=== PATIENT | female | born 1955 | race Caucasian/White ===

== ENCOUNTER 2021-03-23 16:23 | Emergency (ER) | payer SELFPAY ==
[2021-03-23 17:21] LABS: Absolute Lymphocytes (CBC) 2.2 K/uL (0.7-4.9); Basophils % 0.7 % (0-1.3); Hematocrit 46.7 % (36.0-45.0); Lymphocytes % 43.3 % (15.3-44.8); MPV 7.6 fL (7.6-11.3); RBC Red Blood Cell Count 4.32 M/uL (3.86-4.86)
[2021-03-23 17:39] LABS: ALT/SGPT 14 U/L (12-78); AST/SGOT 26 U/L (15-37); Albumin 2.6 g/dL (3.4-5.0); Alkaline Phosphatase 122 U/L (45-117); BUN Blood Urea Nitrogen 7 mg/dL (7-18); Bicarbonate 30 mmol/L (21-32); Bilirubin Direct 0.7 mg/dL (0-0.2); Bilirubin Total 1.4 mg/dL (0.2-1.0); Glucose Level 105 mg/dL (74-106); Lipase 35 U/L (73-393); Potassium 3.3 mmol/L (3.5-5.1); Protein, Total 7.4 g/dL (6.4-8.2); Sodium Level 140 mmol/L (136-145)
[2021-03-23 17:52] LABS: SARS-COV-2 RT PCR POSITIVE (NEGATIVE)
--- NOTE | 2021-03-23 18:49 | RAD REPORT ---
EXAM DESCRIPTION: CT - Chest For Pe Angio - 03/23/2021 6:37 pm CLINICAL HISTORY: shortness of breath COMPARISON: No comparisons TECHNIQUE: Dynamically enhanced 3 mm thick images of the chest were obtained during administration o f approximately 150mL Isovue 370 IV contrast. Coronal and oblique MIP reconstruction images were gene rated and reviewed. Exam utilizes a protocol to evaluate the pulmonary arterial tree. All CT scans are performed using dose optimization technique as appropriate and may include automated exposure control or mA/KV adjustment according to patient size. FINDINGS: No pulmonary emboli are identified. The aorta as imaged shows no acute or suspicious finding. No pericardial thickening or effusion. No dense consolidation or large mass lesion identifiable. In the lateral right lower lobe there is a 13 x 6 mm nodular focus. This has a branching or wide configuration and more centrally there are bron chi that show wall thickening. This is most likely an infectious or inflammatory process probably the dilated, obstructed bronchial structure. There is minimal subpleural stranding and nodularity in the right upper lobe and right middle lobe. No pleural effusion or pleural thickening. No mediastinal or hilar suspicious masses. No chest wall masses or abnormal axillary lymphadenopathy. IMPRESSION: No pulmonary emboli identified. Right lung field findings, as detailed above, are most reflective of an infectious/inflammatory proce ss.Findings are nonspecific and do not have elevated concern for a COVID-19 infection. The 13 x 6 mm nodular component does warrant based on patient age follow-up in 4-6 months to assure r esolution.
--- NOTE | 2021-03-23 18:59 | RAD REPORT ---
EXAM DESCRIPTION: CT - Abdomen Pelvis W Contrast - 03/23/2021 6:37 pm CLINICAL HISTORY: abdominal pain COMPARISON: No comparisons TECHNIQUE: Biphasic, helical CT imaging of the abdomen and pelvis was performed following 100 ml non -ionic IV contrast. No oral contrast administered. All CT scans are performed using dose optimization technique as appropriate and may include automated exposure control or mA/KV adjustment according to patient size. FINDINGS: Lung bases are discussed in the separate CT chest report. Liver size is normal. There is subtle nodularity of the liver capsule and a somewhat mottled enhancem ent pattern. No suspicious parenchymal lesions seen. Left lobe is relatively prominent relative to th e right and cirrhosis or diffuse hepatic parenchymal disease is suspected. No splenomegaly or focal s plenic finding. No pancreatic abnormality. No acute gallbladder finding suspected. Gallstones can be occult. No biliary tree dilatation. Symmetric renal function is seen with no hydronephrosis or suspicious renal mass. No pyelonephritis o r acute parenchymal process. Partially filled urinary bladder shows no suspicious findings. No adrena l abnormalities. Uterus and ovaries show no suspicious findings. No gastric dilatation or gastric wall thickening. Small bowel loops are not dilated. Several small elana wel loops show prominent jones and there may be mild wall edema from a nonspecific enteritis or possi karan electrolyte imbalance due to hepatic parenchymal disease. Colon is decompressed with little elisabeth nt within the lumen. The relatively short segment of the hepatic flexure region of the colon is herni ated through a right periumbilical defect. Hernia diameter is at least 13 cm with an 8 centimeter nec k. There is additional supraumbilical ventral hernia 18 cm in transverse diameter with a 6 centimeter neck. No bowel herniates into the midline supraumbilical hernia. Patient has a moderate amount of ascites with fluid extending into each of the hernias. No free air or pneumatosis. No hernia, mass or bulky lymphadenopathy. No suspicious bony findings. Fluid retention is seen in the subcutaneous fatty tissues. IVC filter is in place. Arterial tree calc ifications are present. IMPRESSION: No bowel obstruction, free air or surgically emergent finding. Cirrhosis or diffuse hepatic parenchymal changes are evident in the liver without focal liver lesion. Upper abdominal varices are present and the patient has moderate ascites. Patient has 2 large hernias both with wide neck is. Midline supraumbilical hernia is 18 cm in diamete r. The right paraumbilical hernia is 13 cm in diameter. The right periumbilical hernia contains a avi rt segment of colon without obstructive component. Prominent small bowel loops may reflect a nonspecific enteritis or may represent bowel edema from ismael ctrolyte imbalance due to deliver disease.
[2021-03-23] MEDS ORDERED: NA CHLORIDE 0.9% 250 ML ONE (19:56)
[2021-03-23] MEDS ORDERED: CASIRIVIMAB/IMDEVIMAB 10 ML VIAL ONE (19:57)
[2021-03-23] MEDS ORDERED: NA CHLORIDE 0.9% 50 ML ONE (19:57)
[2021-03-23 22:03] LABS: Blood Morphology Comment NOTED (NOT SEEN); Macrocytosis 1+; Platelet Estimate ADEQ; White Blood Cell Scan OK (OK)
--- NOTE | 2021-03-23 22:24 | ER ---
Nurse's Notes [facility] Name: Miroslava Means Age: 65 yrs Sex: Female : 1955 Arrival Date: 03/23/2021 Time: 16:27 Bed DX1 Private MD: Diagnosis: Coronavirus infection, unspecified Presentation: 03/23 16:32 Chief complaint: Patient states: cough x 4 days. Has a hernia that is protruding and is sv unable to eat or drink now. Coronavirus screen: Vaccine status: Patient reports being unvaccinated. Client presents with at least one sign or symptom that may indicate coronavirus-19. Standard/surgical mask placed on the client. Ebola Screen: No symptoms or risks identified at this time. Risk Assessment: Do you want to hurt yourself or someone else? Patient reports no desire to harm self or others. Onset of symptoms was February 2021. 16:32 Method Of Arrival: Wheelchair sv 16:32 Acuity: LETHA 3 sv 16:33 Initial Sepsis Screen: Does the patient meet any 2 criteria? RR > 20 per min. HR > 90 sv bpm. Yes Does the patient have a suspected source of infection? No. Patient's initial sepsis screen is negative. Triage Assessment: 16:35 General: Appears in no apparent distress. uncomfortable, Behavior is calm, cooperative, sv appropriate for age. Neuro: Level of Consciousness is awake, alert, obeys commands. Respiratory: Respiratory effort is even, unlabored. 17:16 Respiratory: kg Historical: - Allergies: 16:33 No Known Allergies; sv - Immunization history:: Adult Immunizations up to date. - Social history:: Smoking status: Patient reports the use of cigarette tobacco products, smokes one-half pack cigarettes per day. Screenin:49 Abuse screen: Denies threats or abuse. Denies injuries from another. Nutritional kg screening: No deficits noted. Tuberculosis screening: No symptoms or risk factors identified. Fall Risk None identified. Assessment: 20:13 General: Appears in no apparent distress. Behavior is calm, cooperative. Neuro: Level bb of Consciousness is awake, alert, obeys commands, Oriented to person, place, time, situation. Cardiovascular: Capillary refill < 3 seconds Patient's skin is warm and dry. Respiratory: Respiratory effort is even, unlabored, Respiratory pattern is regular. GI: Abdomen is non-distended. Derm: Skin is dry, Skin temperature is warm. Musculoskeletal: Circulation, motion, and sensation intact. 21:20 Reassessment: No changes from previously documented assessment. Patient is alert, bb oriented x 3, equal unlabored respirations, skin warm/dry/pink. IV site intact, patent, Regen-Cov infusing no adverse effect noted. 22:08 Reassessment: Patient is alert, oriented x 3, equal unlabored respirations, skin bb warm/dry/pink. awaiting completion of monitored time. 22:47 Reassessment: Patient is alert, oriented x 3, equal unlabored respirations, skin bb warm/dry/pink. pt verbalized understanding of and agrees to plan of care discharge instructions given pt ambulated with steady gait to exit Patient states feeling better. Vital Signs: 16:33 BP 137 / 84; Pulse 104; Resp 22; Temp 100.3(O); Pulse Ox 95% ; Weight 102.06 kg; Height sv 5 ft. 6 in. (167.64 cm); 16:49 Temp 98.6(O); kg 20:13 BP 138 / 80; Pulse 88; Resp 20 S; Temp 96.3(O); Pulse Ox 92% ; bb 21:19 BP 144 / 84; Pulse 92; Resp 18 S; Pulse Ox 93% on R/A; bb 22:09 BP 142 / 79; Pulse 89; Resp 18 S; Pulse Ox 92% on R/A; bb 22:48 BP 135 / 80; Pulse 90; Resp 18 S; Temp 99.1(O); Pulse Ox 89% on R/A; bb 16:33 Body Mass Index 36.32 (102.06 kg, 167.64 cm) sv ED Course: 16:27 Patient arrived in ED. rg4 16:32 Arm band placed on. sv 16:33 Triage completed. sv 16:40 May Dawn, NILO is Primary Nurse. kg 16:45 Ted Tate PA is PHCP. jmm 16:45 Michael Webb MD is Attending Physician. jmm 16:49 Patient has correct armband on for positive identification. kg 16:49 No provider procedures requiring assistance completed. kg 17:15 Inserted saline lock: 20 gauge in left antecubital area, using aseptic technique. Blood kg collected. 17:17 Basic Metabolic Panel Sent. kg 17:17 CBC with Diff Sent. kg 17:17 Hepatic Function Sent. kg 17:17 Lipase Sent. kg 17:17 D-Dimer Sent. kg 18:36 CT Chest For PE Angio In Process Unspecified. EDMS 18:37 CT Abd/Pelvis - IV Contrast Only In Process Unspecified. EDMS 20:13 IV is patent, is intact. bb 22:49 IV discontinued, intact, bleeding controlled, No redness/swelling at site. Pressure bb dressing applied. Administered Medications: 18:34 Not Given (Physician Discretion): Tylenol 1000 mg PO once ld1 20:12 Drug: REGEN-COV Dose Pack 120 mg/mL-120 mg/mL (EUA) 1200 mg Route: IV; Rate: 250 ml/hr; bb Site: left antecubital; 21:29 Follow up: IV Status: Completed infusion; IV Intake: 260ml bb Intake: 21:29 IV: 260ml; Total: 260ml. bb Outcome: 22:24 Discharge ordered by MD. roosevelt 22:49 Discharged to home ambulatory. bb 22:49 Condition: stable 22:49 Discharge instructions given to patient, Instructed on discharge instructions, follow up and referral plans. Demonstrated understanding of instructions, follow-up care, medications, Prescriptions given X 2. 22:50 Patient left the ED. bb Signatures: Dispatcher [employer] Annette Patel RN RN sv Mickail, Joel, PA PA Tammy Mclaughlin RN RN bb Garcia, Rubi rg4 May Dawn RN RN kg Latricia Hough RN ld1 Corrections: (The following items were deleted from the chart) 16:35 16:33 Pulse 104bpm; Resp 22bpm; Pulse Ox 95%; Temp 100.3F Oral; 102.06 kg; Height 5 ft. sv 6 in.; BMI: 36.3; sv 16:37 16:33 Pulse 104bpm; Resp 22bpm; Pulse Ox 95%; Temp 100.3F Oral; 102.06 kg; Height 5 ft. sv 6 in.; BMI: 36.3; sv 17:15 17:15 Inserted saline lock: 20 gauge in left antecubital area, using aseptic technique. kg kg 17:58 17:17 Influenza Screen (A \T\ B)+BA.LAB.BRZ drawn and sent. kg EDMS
--- NOTE | 2021-03-23 22:24 | EDPHYS ---
Physician Documentation [facility] Name: Miroslava Means Age: 65 yrs Sex: Female : 1955 Arrival Date: 03/23/2021 Time: 16:27 Bed DX1 Private MD: ED Physician Michael Webb HPI: 03/23 16:41 This 65 yrs old Female presents to ER via Wheelchair with complaints of jmm Cough, Congestion, Vomiting. 16:41 Onset: The symptoms/episode began/occurred gradually, 4 day(s) ago. Is a 65-year-old jmm female that presents to the emergency department with complaints of abdominal pain and vomiting beginning today. Patient states she has had a cough over the past 4 days which is worsened her pre-existing abdominal hernia. Patient denies diarrhea.. Historical: - Allergies: 16:33 No Known Allergies; sv - Immunization history:: Adult Immunizations up to date. - Social history:: Smoking status: Patient reports the use of cigarette tobacco products, smokes one-half pack cigarettes per day. ROS: 16:41 Constitutional: Negative for fever, chills, and weight loss, Cardiovascular: Negative jmm for chest pain, palpitations, and edema. 16:41 Respiratory: Positive for cough. 16:41 Abdomen/GI: Positive for abdominal pain, nausea and vomiting. 16:41 All other systems are negative. Exam: 16:41 Constitutional: This is a well developed, well nourished patient who is awake, alert, jmm and in no acute distress. Head/Face: atraumatic. Eyes: EOMI, no conjunctival erythema appreciated ENT: Moist Mucus Membranes Neck: Trachea midline, Supple Chest/axilla: Normal chest wall appearance and motion. 16:41 Respiratory: Normal respirations, no respiratory distress appreciated 16:41 Back: Normal ROM Skin: General appearance color normal MS/ Extremity: Moves all extremities, no obvious deformities appreciated, no edema noted to the lower extremities Neuro: Awake and alert, normal gait Psych: Behavior is normal, Mood is normal, Patient is cooperative and pleasant 16:41 Cardiovascular: Rate: normal, Rhythm: regular. 16:41 Abdomen/GI: Palpable mass noted to the abdomen, soft, there is tenderness to palpation. Vital Signs: 16:33 BP 137 / 84; Pulse 104; Resp 22; Temp 100.3(O); Pulse Ox 95% ; Weight 102.06 kg; Height sv 5 ft. 6 in. (167.64 cm); 16:49 Temp 98.6(O); kg 20:13 BP 138 / 80; Pulse 88; Resp 20 S; Temp 96.3(O); Pulse Ox 92% ; bb 21:19 BP 144 / 84; Pulse 92; Resp 18 S; Pulse Ox 93% on R/A; bb 22:09 BP 142 / 79; Pulse 89; Resp 18 S; Pulse Ox 92% on R/A; bb 22:48 BP 135 / 80; Pulse 90; Resp 18 S; Temp 99.1(O); Pulse Ox 89% on R/A; bb 16:33 Body Mass Index 36.32 (102.06 kg, 167.64 cm) sv MDM: 16:52 Patient medically screened. [facility] 22:22 Data reviewed: vital signs, nurses notes. Counseling: I had a detailed discussion with omero the patient and/or guardian regarding: the historical points, exam findings, and any diagnostic results supporting the discharge/admit diagnosis, lab results, radiology results, the need for outpatient follow up, to return to the emergency department if symptoms worsen or persist or if there are any questions or concerns that arise at home. 03/23 16:53 Order name: Basic Metabolic Panel; Complete Time: 17:[address] [facility] 03/23 16:53 Order name: CBC with Diff; Complete Time: 22:[address] [facility] 03/23 16:53 Order name: Hepatic Function; Complete Time: 17:[address] [facility] 03/23 16:53 Order name: Lipase; Complete Time: 17:[address] [facility] 03/23 16:53 Order name: IV Saline Lock; Complete Time: 17:[address] [facility] 03/23 16:53 Order name: D-Dimer; Complete Time: 18:[address] [facility] 03/23 17:53 Order name: COVID-19/FLU A+B; Complete Time: 17:55 [facility] 03/23 17:56 Order name: CT Chest For PE Angio; Complete Time: 18:[address] [facility] 03/23 17:56 Order name: CT Abd/Pelvis - IV Contrast Only; Complete Time: 19:[address] [facility] 03/23 22:03 Order name: CBC Smear Scan; Complete Time: 22:08 [facility] 03/23 16:53 Order name: Labs collected and sent; Complete Time: 17:[address] [facility] Administered Medications: 18:34 Not Given (Physician Discretion): Tylenol 1000 mg PO once ld1 20:12 Drug: REGEN-COV Dose Pack 120 mg/mL-120 mg/mL (EUA) 1200 mg Route: IV; Rate: 250 ml/hr; bb Site: left antecubital; 21:29 Follow up: IV Status: Completed infusion; IV Intake: 260ml bb Disposition Summary: 03/23/21 22:24 Discharge Ordered Location: Home [facility] Condition: Stable [facility] Diagnosis - Coronavirus infection, unspecified [facility] Followup: m - With: Private Physician - When: 2 - 3 days - Reason: Recheck today's complaints, Continuance of care, Re-evaluation by your physician Discharge Instructions: - Discharge Summary Sheet [facility] - COVID-[address] [facility] Forms: - Medication Reconciliation Form [facility] - Thank You Letter [facility] - Antibiotic Education [facility] - Prescription Opioid Use [facility] Prescriptions: - albuterol sulfate 90 mcg/actuation Inhalation HFA aerosol inhaler - inhale 2 puff by INHALATION route every 4 hours; 1 Pump; Refills: 0, Product [facility] Selection Permitted - ivermectin 3 mg Oral tablet - take 6 tablet by ORAL route as directed Please take 6 tabs by mouth now, and jmm then take another 6 tabs by mouth in 3 days; 12 tablet; Refills: 0, Product Selection Permitted Signatures: Dispatcher [employer] [facility] Annette Farrar RN RN sv Mickail, Joel, PA PA [facility] Tammy Scott RN RN bb Graham, Kristen, RN RN kg Latricia Hough RN ld1 Corrections: (The following items were deleted from the chart) 16:59 16:37 CORONAVIRUS+MR.LAB.BRZ ordered. EDLA EDMS 17:58 16:37 Influenza Screen (A \T\ B)+BA.LAB.BRZ ordered. EDLA EDMS
[2021-03-23 23:04] VITALS: BP 135/80; TEMP 99.1; O2SAT 89
== END 2021-03-23 22:50 | disposition home or self-care (01) ==
LOC: ER 16:23
DX: U07.1 COVID-19 (principal); F17.210 Nicotine dependence, cigarettes, uncomplicated
CPT/HCPCS: 0240U; 36415; 71275; 74177; 80048; 80076; 83690; 85025; 85379; J7050; Q9967

== ENCOUNTER 2021-10-17 16:18 | Inpatient (IN) | payer OTHER ==
--- OUTSIDE RECORDS SUMMARY | 2021-10-17 16:20 | XMS REPORT | Continuity of Care Document ---
:1955 Author Organization [facility] t Address [address] [place] [address] Care Team Providers Name Role Phone Jarod Miller MD Primary Care Physician Cari Ramos LMSW Attending Clinician Payers Payer Name Policy Type Policy Number Effective Date Expiration Date S ource Problems Condition Condition Condition Status Onset Resolution Last Treating Co mments Source Name Details Category Date Date Treatment Clinician Date Abdominal Abdominal Disease Active Uni vers ascites ascites 3-03 ity of 00:00: [place] 00 [facility] Branch Decompensa Decompensa Disease Active 2020-07 U nivers adriana adriana 0-13 ity of hepatic hepatic 00:00: [place] cirrhosis cirrhosis 00 [facility] Allergies, Adverse Reactions, Alerts This patient has no known allergies or adverse reactions. Social History Social Habit Start Date Stop Date Quantity Comments Source Exposure to Not sure [facility] SARS-CoV-2 (event) [facility] History of tobacco Cigarette Smoker University of use [facility] History [facility] o f Alcohol Frequency [facility] Branch History [facility] University o f Alcohol Std Drinks [facility] History [facility] University o f Alcohol Binge [facility] Alcohol intake 2021-09-26 2021-09-26 Ex-drinker University of 00:00:00 00:00:00 (finding) [facility] Cigarettes smoked 2021-05-04 2021-05-04 Univers ity of current (pack per 00:00:00 00:00:[address] [facility] ) - Reported Branch Cigarette 2021-05-04 2021-05-04 University of pack-years 00:00:00 00:00:00 [facility] Tobacco use and 2021-05-04 2021-05-04 Never used Universit y of exposure 00:00:00 00:00:00 [facility] Alcohol Comment 2021-05-04 2021-05-04 stopped 1980 Univers ity of 00:00:00 00:00:00 [facility] Education 2021-05-04 2021-05-04 13 University of 00:00:00 00:00:00 [facility] Tobacco Comment 2021-05-04 2021-05-04 pack a day Universit y of 00:00:00 00:00:00 smoker quit 10 [place] [facility] days ago Branch Sex Ass[birth year] Universit y of 00:00:00 00:00:00 [facility] Smoking Status Start Date Stop Date Source Former smoker 2021-05-04 00:00:00 2021-05-04 00:00:00 Universi ty of [facility] Medications Ordered Filled Start Stop Current Ordering Indication Dosage Frequency Signature Comments Components Source Medication Medication Date Date Medication? Clinician (SIG) Name Name Lactobac Yes Take by Unive rs no.41/Bifid 3-07 mouth as ity of obact no.7 09:23[place] (PROBIOTIC- 23 Medical 10 ORAL) Branch polyethylen Yes 1{packe Take 1 U nivers e glycol 3-07 t} Packet by ity of 3350 09:23: mouth as [place] (MIRALAX) 23 needed for [facility] stephanie 17 gram Constipati Branch powder on. vitamin Yes [id number] 1000ug Take 1 U nivers B-12 1,000 3-07 tablet by ity of mcg tablet 00:00: mouth [place] 00 daily. Medical Branch spironolact Yes [id number] 150mg Take 1.5 Univers one 100 mg 3-04 tablets by ity of tablet 00:00: mouth [place] 00 daily. Medical Branch furosemide 2021- No [id number] 60mg Take 3 Univers 20 mg 3-04 03-08 tablets by ity of tablet 00:00: 00:00 mouth [place] 00 :00 daily. Medical Branch pantoprazol 2020-07 Yes [id number] 40mg Take 1 Univers e 40 mg EC 0-16 tablet by ity of tablet 00:00: mouth [place] 00 daily. Medical Branch lactulose 2020-07 Yes [id number] 30mL Take 30 mL Univers 10 gram/15 0-15 by mouth 2 ity of mL solution 00:00: (two) [place] 00 times Medical daily. Branch Procedures This patient has no known procedures. Encounters Start End Encounter Admission Attending Care Care Encounter Source Date/Time Date/Time Type Type Clinicians Facility Department ID 2021-09-26 2021-09-26 Patient KEVIN Ramos [id number] Univers 00:00:00 00:00:00 Outreach [facility] [id number] i ty of KADE [id number] Rafa as LARRY?BLEA [id number] [place] salvador HARE 044 Branch MEDICAL OFFICE BUILDING Results This patient has no known results.
[2021-10-17] MEDS ORDERED: CEFTRIAXONE 1000 MG/VIAL ONE (16:25)
[2021-10-17] MEDS ORDERED: NA CHLORIDE 0.9% 2,000 ML ONE ×2 (16:25→16:29)
[2021-10-17] MEDS ORDERED: ETOMIDATE 20 MG/10 ML VIAL IV ONE (16:28)
[2021-10-17] MEDS ORDERED: SUCCINYLCHOLINE 20 MG/ML (10 ML) IV ONE (16:29)
[2021-10-17 17:05] LABS: Albumin 2.2 g/dL (3.4-5.0); Bilirubin Total 2.3 mg/dL (0.2-1.0); Magnesium 1.7 mg/dL (1.8-2.4); Potassium 4.8 mmol/L (3.5-5.1); Protein, Total 6.7 g/dL (6.4-8.2)
[2021-10-17 17:22] LABS: Troponin High Sensitivity 81.8 pg/mL (<58.9)
[2021-10-17 17:27] LABS: Urine Bacteria <20 /HPF (<20); Urine RBC <5 /HPF (NONE SEEN)
[2021-10-17] MEDS ORDERED: LACTULOSE 20 GM/30 ML UCUP ONE (17:36)
--- NOTE | 2021-10-17 17:36 | RAD REPORT ---
EXAM DESCRIPTION: CT - Head Brain Wo Cont - 10/17/2021 5:25 pm CLINICAL HISTORY: DECLINING STATE COMPARISON: No comparisons TECHNIQUE: Axial 5 mm thick images of the head were obtained without IV contrast. All CT scans are performed using dose optimization technique as appropriate and may include automated exposure control or mA/KV adjustment according to patient size. FINDINGS: No intracranial hemorrhage, mass, edema or shift of mid-line structures. No acute infarcti on changes seen. No abnormal extra-axial fluid collections. Ventricles are normal. No significant atr ophy or chronic ischemic change. Asymmetry is created by head tilt. Mastoid air cells and visualized portions of the paranasal sinuses are clear. No acute bony findings. IMPRESSION: Negative non-contrast CT head examination.
--- NOTE | 2021-10-17 17:41 | RAD REPORT ---
EXAM DESCRIPTION: RAD - Chest Single View - 10/17/2021 4:59 pm CLINICAL HISTORY: DYSPNEA COMPARISON: None TECHNIQUE: AP portable chest image was obtained 10/17/2021 4:59 pm . FINDINGS: ET tube has been placed. Tip is mid aortic arch level 4 cm above the ernst. No focal mass or consolidation. No diffuse pulmonary edema. Interstitial markings are prominent. Left hemidiaphragm elevation noted. No reuben mass seen. Heart and vasculature are normal. No measurable pleural effusion and no pneumothorax. No acute bony abnormality seen. No acute aortic findings suspected. IMPRESSION: ET tube placement in good position 4 cm above the ernst.
[2021-10-17 18:02] LABS: Protime INR 1.43
--- NOTE | 2021-10-17 18:09 | ER ---
Nurse's Notes [facility] Name: Miroslava Means Age: 66 yrs Sex: Female : 1955 Arrival Date: 10/17/2021 Time: 16:20 Bed 3 Private MD: Diagnosis: Hepatic Encephalopathy;Acute kidney failure, unspecified;Hypotension, unspecified;Altered mental status, unspecified Presentation: 10/17 16:20 Chief complaint: EMS states: Unknown downtime, unknown last known well. Found on L side ll1 laying on her sofa. Neighbors called for welfare check. BP 88/63, resp 25, 98.3 temp, 90%RA, HR 111. R eye reactive only, BM en route. History of stomach CA per neighbors. Coronavirus screen: Client denies travel out of the [place] in the last 14 days. At this time, the client does not indicate any symptoms associated with coronavirus-19. Ebola Screen: Patient denies travel to an Ebola-affected area in the 21 days before illness onset. Initial Sepsis Screen: Does the patient meet any 2 criteria? RR > 20 per min. HR > 90 bpm. Yes Does the patient have a suspected source of infection? No. Patient's initial sepsis screen is negative. Risk Assessment: Do you want to hurt yourself or someone else? Patient reports no desire to harm self or others. Onset of symptoms is unknown. 16:20 Method Of Arrival: EMS: [facility] 1 16:20 Acuity: LETHA 2 ll1 Triage Assessment: 16:24 General: General: Appears ill, Behavior is unresponsive. ll1 16:49 Pain: Denies pain. Neuro: Reports a syncopal episode weakness. Cardiovascular: No ll1 deficits noted. Respiratory: Reports shortness of breath. GI: Abdomen is round distended, Bowel sounds present X 4 quads. Historical: - Allergies: 16:23 Unable to obtain; ll1 - PMHx: 16:23 stomach CA; ll1 - PSHx: 16:23 Unable to Obtain; ll1 - Immunization history:: Adult Immunizations unknown. - Social history:: Smoking status: Patient reports the use of cigarette tobacco products, unknown amount. Screenin:50 Abuse screen: Denies threats or abuse. Nutritional screening: No deficits noted. ll1 Tuberculosis screening: No symptoms or risk factors identified. 19:18 Fall Risk Fall in past 12 months (25 points). Secondary diagnosis (15 points) IV access tw5 (20 points). Assessment: 16:20 General: Appears unkempt, malnourished, Behavior is unresponsive. Neuro: Level of jh6 Consciousness is unresponsive, Oriented to none Reaction to noxious stimuli is withdrawal. Cardiovascular: No deficits noted. Respiratory: Airway is compromised compromised airway due to pt being obtunded Trachea midline Breath sounds are clear bilaterally. 16:20 Pain: Noted to be unresponsive except for pain. jh6 17:00 Reassessment: No changes from previously documented assessment. jh6 18:50 Reassessment: No changes from previously documented assessment. Patient and/or family jh6 updated on plan of care and expected duration. Pain level reassessed. Patient is alert, oriented x 3, equal unlabored respirations, skin warm/dry/pink. pt currently not on any sedation and has only slight response to painful stimuli. 19:18 General: Appears ill, unkempt, Behavior is unresponsive. Called Lab for a recollect. tw5 Neuro: Level of Consciousness is unresponsive, Oriented to none Respiratory: Airway via oral intubation Trachea midline Respiratory effort is even, unlabored, Respiratory pattern is regular, Ventilator assessment: ET Tube: 7.5 24 at lip Ventilator Mode: Assist Control (AC) Tidal Volume: 480 Respiratory Rate: 14 FiO2: 30% PEEP: 5 HOB > 30 degrees. Suction provided. Color of output clear. : to gravity drainage. Vital Signs: 16:20 BP 89 / 61; Pulse 101; Resp 24; Temp 97.3; Pulse Ox 88% on R/A; Weight 70.31 kg; Pain ll1 0/10; 16:51 BP 108 / 68; Pulse 91; Resp 14; Pulse Ox 99% on ETT vent; Pain 0/10; ll1 17:00 BP 90 / 70; Pulse 95; Resp 16; Temp 97.8(C); Pulse Ox 100% on 10% FiO2 ETT vent; jh6 17:30 BP 111 / 69; Pulse 100; Resp 16; Pulse Ox 100% on ETT vent; jh6 17:45 BP 118 / 58; Pulse 100; Resp 20; Pulse Ox 99% on ETT vent; jh6 18:00 BP 115 / 75; Pulse 95; Resp 16; Pulse Ox 98% on ETT vent; jh6 18:16 BP 106 / 65; Pulse 96; Resp 16; Pulse Ox 100% ; jh6 18:40 BP 105 / 69; Pulse 97; Resp 14; Pulse Ox 99% ; jh6 19:03 BP 108 / 77; Pulse 96; Resp 22; Pulse Ox 97% on 30% FiO2 ETT vent; tw5 19:18 BP 110 / 75; Pulse 96; Resp 19; Temp 98.1(C); Pulse Ox 97% on 30% FiO2 ETT vent; tw5 21:18 BP 109 / 75; Pulse 101; Resp 20; Pulse Ox 95% on ETT vent; tw5 ED Course: 16:15 Inserted saline lock: 20 gauge in left antecubital area, using aseptic technique. 6 16:15 Assisted provider with intubation using 7.5 mm ETT via oral route. ET tube secured at 6 23cm at the lips. Set up intubation tray. Intubated by Damion ISAAC Placement verified by CO2 detector w/ + color change, auscultating bilateral breath sounds, End-tidal CO2 montioring CXR, Patient tolerated well. 16:20 Patient arrived in ED. 1 16:20 Inserted saline lock: 20 gauge in right antecubital area, using aseptic technique. 6 Blood collected. 16:23 Triage completed. ll1 16:24 Arm band placed on Patient placed in an exam room, on a stretcher. ll1 16:26 Damion Castro PA is PHCP. jr8 16:26 Pa Guajardo MD is Attending Physician. jr8 16:30 Initial lab(s) drawn, by wy, sent to lab. Second set of blood cultures drawn by , 6 Urine collected: Vora catheter specimen, onofre colored, tea colored, Amount Returned: 60mL EKG done, by ED staff, reviewed by Damion ISAAC. 16:38 Patient has correct armband on for positive identification. Placed in gown. Bed in low mh5 position. Call light in reach. Side rails up X2. Warm blanket given. equipment monitor phototypesetting on. Pulse ox on. NIBP on. 16:38 COVID swab sent to lab. 5 16:40 Inserted. 6 16:52 Janay Hankins RN is Primary Nurse. 6 16:53 Inserted. jh6 16:57 Vora cath inserted, using sterile technique, 18 Fr., by wy, balloon inflated, to zm gravity drainage, clamped. urine specimen collected. returned onofre urine. Patient tolerated well. 17:00 Chest Single View XRAY In Process Unspecified. EDMS 17:00 NGT: inserted 16 Fr. via left nare. confirmation with auscultation with air and jh6 aspiration of gastric contents. pt tolerated well no trauma during procedure. 17:27 CT Head Brain wo Cont In Process Unspecified. EDMS 17:[address] jh6 17:40 Patient moved back from CT. jh6 18:08 Jamarcus Webb MD is Hospitalizing Provider. jr8 18:14 Chest Abdomen Pelvis Wo Con CT In Process Unspecified. EDMS 18:15 Patient moved back from CT. jh6 19:09 Primary Nurse role handed off by Janay Hankins, NILO tw5 19:09 Sherine Dean is Primary Nurse. tw5 19:18 equipment monitor phototypesetting on. Pulse ox on. NIBP on. Noise minimized. Moved to private room. Warm tw5 blanket given. 21:15 Patient admitted, IV remains in place. tw5 Administered Medications: 16:35 Drug: NS 0.9% (30 ml/kg) 30 ml/kg Route: IV; Rate: bolus; Site: left antecubital; 6 19:11 Follow up: IV Status: Completed infusion jh6 19:11 Follow up: IV Status: Completed infusion 6 16:38 Drug: Etomidate 10 mg Route: IVP; Site: left antecubital; 6 19:11 Follow up: Response: No adverse reaction 6 16:38 Drug: Succinylcholine 70 mg Route: IVP; Site: left antecubital; 6 19:11 Follow up: Response: No adverse reaction jh6 17:03 Drug: Rocephin (cefTRIAXone) 2 grams Route: IV; Rate: calculated rate; [facility]: [facility] antecubital; 17:47 Follow up: Response: No adverse reaction jh6 18:17 Follow up: Response: No adverse reaction 6 19:11 Follow up: IV Status: Completed infusion jh6 17:34 Drug: Lactulose 30 grams Volume: 45 ml; Route: PO; 6 19:10 Follow up: Response: No adverse reaction 6 18:18 Drug: Magnesium Sulfate 2 grams Route: IVPB; Infused Over: 2 hrs; Site: left [facility] antecubital; 19:15 Follow up: Response: No adverse reaction; IV Status: Completed infusion; IV Intake: [id number] Intake: 19:15 IV: 50ml; Total: 50ml. tw5 Outcome: 18:09 Decision to Hospitalize by Provider. jr8 19:48 Admitted to ICU Report called to Attempted to call report to Rebekah. It was stated she tw5 is trying to get another patient moved out of ICU and won't be able to receive the patient until the other patient has been downgraded. 20:21 Admitted to ICU Report called to Attempted to call report was told that nurse is still tw5 unable to take report at this time. 21:14 Admitted to ICU Report called to Called report to Rebekah. Paging RT for transfer at this tw5 time 21:14 Condition: stable 21:33 Patient left the ED. kd3 Signatures: Dispatcher [employer] EDMS Damion Castro PA PA jr8 Bernie Abbott 5 Michael Santiago RN RN ll1 Sherine Dean 5 Staci Pires RN RN kd3 Janay Hankins RN RN 6 Lynette Abbott Corrections: (The following items were deleted from the chart) 16:49 16:20 BP 89 / 61; Pulse 101bpm; Resp 24bpm; Pulse Ox 88% RA; Temp 97.3F; Pain 0/10; ll1 ll1 16:50 16:24 General: ll1 ll1 16:54 16:52 Assisted provider with intubation using 7.5 mm ETT via oral route. ET tube jh6 secured at 23cm at the lips. Set up intubation tray. Intubated by Damion ISAAC Placement verified by CO2 detector w/ + color change, auscultating bilateral breath sounds, End-tidal CO2 montioring CXR, Patient tolerated well. jh6 16:56 16:40 Assisted provider with intubation using 7.5 mm ETT via oral route. ET tube jh6 secured at 23cm at the lips. Set up intubation tray. Intubated by Damion ISAAC Placement verified by CO2 detector w/ + color change, auscultating bilateral breath sounds, End-tidal CO2 montioring CXR, Patient tolerated well. 6 17:02 16:56 General: Appears unkempt, malnourished, Behavior is unresponsive. [place] [id number] 17:02 16:56 Pain: Noted to be unresponsive except for pain [place] [id number] 17:02 16:56 Neuro: Level of Consciousness is unresponsive, Oriented to none Reaction to [facility] noxious stimuli is withdrawal [facility] 17:02 16:56 Cardiovascular: No deficits noted. [place] [id number] 17:02 16:56 Respiratory: Airway is compromised compromised airway due to pt being obtunded [facility] Trachea midline Breath sounds are clear bilaterally. 6 17:54 17:00 NGT: inserted 16 Fr. via left nare. [place] [id number]
--- NOTE | 2021-10-17 18:10 | EDPHYS ---
Physician Documentation [facility] Name: Miroslava Means Age: 66 yrs Sex: Female : 1955 Arrival Date: 10/17/2021 Time: 16:20 Bed 3 Private MD: ED Physician Pa Guajardo HPI: 10/17 17:38 This 66 yrs old Female presents to ER via EMS with complaints of Unresponsive. jr8 17:38 Onset: The symptoms/episode began/occurred at an unknown time. Duration: The episode is jr8 continuous. Severity of symptoms: At their worst the symptoms were moderate in the emergency department the symptoms are unchanged. Patient's baseline: Neuro: alert and fully oriented. It is unknown whether or not the patient has had similar symptoms in the past. It is unknown whether or not the patient has recently seen a physician. This is a 66-year-old female patient that presented to the emergency room via EMS after being called out for a welfare check by police department. Neighbors had not heard from her and so they had called police. Police entered and found patient unresponsive on the couch. EMS got there found her on her left side laying on the couch. Nonresponsive to any stimulus. Initially hypotensive and hypoxic. Patient upon arrival to emergency room on oxygen oxygenating at 100% on a nonrebreather 10 L/min. Still unresponsive. Only known history is a possible stomach cancer.. Historical: - Allergies: 16:23 Unable to obtain; ll1 - PMHx: 16:23 stomach CA; ll1 - PSHx: 16:23 Unable to Obtain; ll1 - Immunization history:: Adult Immunizations unknown. - Social history:: Smoking status: Patient reports the use of cigarette tobacco products, unknown amount. ROS: 17:38 Unable to obtain ROS due to altered mental status. jr8 Exam: 17:38 Radiologist reports: No acute findings jr8 17:40 Eyes: Pupils equal round and reactive to light, extra-ocular motions intact. Lids and jr8 lashes normal. Conjunctiva and sclera are non-icteric and not injected. Cornea within normal limits. Periorbital areas with no swelling, redness, or edema. Neck: Trachea midline, no thyromegaly or masses palpated, and no cervical lymphadenopathy. Supple, full range of motion Cardiovascular: Regular rate and rhythm with a normal S1 and S2. No gallops, murmurs, or rubs. Normal PMI, no JVD. No pulse deficits. Respiratory: Lungs have equal breath sounds bilaterally, clear to auscultation and percussion. No rales, rhonchi or wheezes noted. No increased work of breathing, no retractions or nasal flaring. RR 16 bpm Abdomen/GI: Soft with normal bowel sounds. No distension. Large hernia present lower abdomen Skin: Warm, dry with normal turgor. Normal color with no rashes, no lesions, and no evidence of cellulitis. MS/ Extremity: Pulses equal, no cyanosis. Neurovascular intact. 17:40 Neuro: Orientation: Not oriented to person, place, time, situation, Mentation: unable to follow commands, Memory: unable to test, Cerebellar function: unable to test, Motor: unable to test, seizure activity, is not displayed by the patient, Abnormal movements: there are no abnormal movements. Vital Signs: 16:20 BP 89 / 61; Pulse 101; Resp 24; Temp 97.3; Pulse Ox 88% on R/A; Weight 70.31 kg; Pain ll1 0/10; 16:51 BP 108 / 68; Pulse 91; Resp 14; Pulse Ox 99% on ETT vent; Pain 0/10; ll1 17:00 BP 90 / 70; Pulse 95; Resp 16; Temp 97.8(C); Pulse Ox 100% on 10% FiO2 ETT vent; jh6 17:30 BP 111 / 69; Pulse 100; Resp 16; Pulse Ox 100% on ETT vent; jh6 17:45 BP 118 / 58; Pulse 100; Resp 20; Pulse Ox 99% on ETT vent; jh6 18:00 BP 115 / 75; Pulse 95; Resp 16; Pulse Ox 98% on ETT vent; jh6 18:16 BP 106 / 65; Pulse 96; Resp 16; Pulse Ox 100% ; jh6 18:40 BP 105 / 69; Pulse 97; Resp 14; Pulse Ox 99% ; jh6 19:03 BP 108 / 77; Pulse 96; Resp 22; Pulse Ox 97% on 30% FiO2 ETT vent; tw5 19:18 BP 110 / 75; Pulse 96; Resp 19; Temp 98.1(C); Pulse Ox 97% on 30% FiO2 ETT vent; tw5 21:18 BP 109 / 75; Pulse 101; Resp 20; Pulse Ox 95% on ETT vent; tw5 Procedures: 16:46 Intubation: Ventilated with 100% NRB prior to procedure. O2 saturation prior to 8 procedure was 98 %. Intubated orally using # 4 Jamal blade with 7.5 mm ETT. was successful on first attempt. Ventilated with Ambu bag. ventilator. Tube secured with ETT ha at center of mouth measured 22 cm at lip. Placement verified by CXR, CO2 detector with (+) color change, auscultating bilateral breath sounds, O2 saturation after procedure was 100 %. Patient tolerated well. MDM: 16:26 Patient medically screened. 10/17 16:28 Order name: Blood Culture Adult (2) 10/17 16:28 Order name: CBC with Diff; Complete Time: 19:59 10/17 16:28 Order name: CMP; Complete Time: 17:26 10/17 16:28 Order name: Lactate; Complete Time: 17:26 10/17 16:28 Order name: Protime (+inr); Complete Time: 18:07 10/17 16:28 Order name: Ptt, Activated; Complete Time: 18:07 10/17 16:28 Order name: Urine Culture 10/17 16:28 Order name: Urine Microscopic Only; Complete Time: 17:30 10/17 16:28 Order name: ABG 10/17 16:28 Order name: Magnesium; Complete Time: 17:26 10/17 16:28 Order name: BNP; Complete Time: 17:26 10/17 16:28 Order name: AMMONIA; Complete Time: 16:58 10/17 16:28 Order name: UDS; Complete Time: 18:31 10/17 16:28 Order name: Troponin HS; Complete Time: 17:26 10/17 16:28 Order name: Chest Single View XRAY; Complete Time: 17:43 10/17 16:28 Order name: Accucheck; Complete Time: 16:48 10/17 16:28 Order name: Cardiac monitoring; Complete Time: 16:48 10/17 16:28 Order name: EKG - Nurse/Tech; Complete Time: 16:48 10/17 16:28 Order name: CT Head Brain wo Cont; Complete Time: 17:40 [facility] 10/17 16:38 Order name: COVID-19 SARS RT PCR (Document "Date of Onset" if Symptomatic); Complete bd Time: 17:27 10/17 16:54 Order name: glucometer results - FOR PT WITH NO ID; Complete Time: 17:51 aa5 10/17 17:50 Order name: Chest Abdomen Pelvis Wo Con CT; Complete Time: 18:41 la1 10/17 20:22 Order name: Lactate Sepsis 2 HR Follow-up; Complete Time: 20:54 EDMS 10/17 16:28 Order name: IV Saline Lock - Large Bore; Complete Time: 16:48 [facility] 10/17 16:28 Order name: Labs collected and sent; Complete Time: 16:48 [facility] 10/17 16:28 Order name: O2 Per Protocol; Complete Time: 16:48 [facility] 10/17 16:28 Order name: O2 Sat Monitoring; Complete Time: 16:48 [facility] 10/17 16:46 Order name: Labs - recollect needed: recollect blue, and green top; Complete Time: 18:17bd 10/17 17:01 Order name: NG Tube; Complete Time: 17:34 [facility] 10/17 17:55 Order name: Labs - recollect needed: recollect lavender top; Complete Time: 18:14 bd 10/17 19:02 Order name: Labs - recollect needed: recollect cbc; Complete Time: 19:46 bd Administered Medications: 16:35 Drug: NS 0.9% (30 ml/kg) 30 ml/kg Route: IV; Rate: bolus; Site: left antecubital; [facility] 19:11 Follow up: IV Status: Completed infusion [facility] 19:11 Follow up: IV Status: Completed infusion [facility] 16:38 Drug: Etomidate 10 mg Route: IVP; Site: left antecubital; [facility] 19:11 Follow up: Response: No adverse reaction [facility] 16:38 Drug: Succinylcholine 70 mg Route: IVP; Site: left antecubital; [facility] 19:11 Follow up: Response: No adverse reaction [facility] 17:03 Drug: Rocephin (cefTRIAXone) 2 grams Route: IV; Rate: calculated rate; Site: right [facility] antecubital; 17:47 Follow up: Response: No adverse reaction [facility] 18:17 Follow up: Response: No adverse reaction [facility] 19:11 Follow up: IV Status: Completed infusion [facility] 17:34 Drug: Lactulose 30 grams Volume: 45 ml; Route: PO; [facility] 19:10 Follow up: Response: No adverse reaction [facility] 18:18 Drug: Magnesium Sulfate 2 grams Route: IVPB; Infused Over: 2 hrs; Site: left [facility] antecubital; 19:15 Follow up: Response: No adverse reaction; IV Status: Completed infusion; IV Intake: [id number] Disposition Summary: 10/17/21 18:09 Hospitalization Ordered Hospitalization Status: Inpatient Admission [facility] Provider: Jamarcus Webb Location: Intensive Care Unit [facility] Condition: Fair jr8 Problem: new jr8 Symptoms: have improved jr8 Bed/Room Type: Standard [facility] Room Assignment: 3-(10/17/21 19:32) Diagnosis - Hepatic Encephalopathy jr8 - Acute kidney failure, unspecified jr8 - Hypotension, unspecified jr8 - Altered mental status, unspecified jr8 Forms: - Medication Reconciliation Form jr8 - SBAR form jr8 Addendum: 10/20/2021 06:35 Co-signature as Attending Physician, Pa Guajardo MD I agree with the assessment and c ramirez plan of care. Signatures: Dispatcher [employer] EDPR Marissa Coe Martha, RN Pa Ortez MD MD cha Roszak, Josh, PA PA jr8 Cy Mina, BUGGY OPERATOR-C BUGGY OPERATOR-Cla1 Michael Santiago RN RN ll1 Janay Hankins RN RN 6 Sherine Dean tw5 Corrections: (The following items were deleted from the chart) 10/17 16:58 16:51 GLUCOSE+[id number].LAB.BRZ ordered. EDPR EDPR 19:32 18:09 Suhas corcoran
[2021-10-17] MEDS ORDERED: Magnesium Sulfate 2gm IVPB 2 G/50 ML BAG IV ONE (18:19)
[2021-10-17 18:20] LABS: Barbiturates NEGATIVE (NEGATIVE); Benzodiazepines NEGATIVE (NEGATIVE); Cocaine NEGATIVE (NEGATIVE); METHAMPHETAM NEGATIVE (NEGATIVE); Methadone NEGATIVE (NEGATIVE); Opiates NEGATIVE (NEGATIVE); Phencyclidine NEGATIVE (NEGATIVE); THC Cannibis POSITIVE (NEGATIVE)
--- NOTE | 2021-10-17 18:40 | RAD REPORT ---
EXAM DESCRIPTION: CT - Chest Abd Pelvis Wo Con - 10/17/2021 6:12 pm CLINICAL HISTORY: Unresponsive, hypotensive, elev. lactate/ammonia COMPARISON: Chest For Pe Angio dated 03/23/2021; Chest Single View dated 10/17/2021 TECHNIQUE: Axial 5 millimeter thick images of the chest, abdomen and pelvis were obtained without IV contrast. Oral contrast was administered. All CT scans are performed using dose optimization technique as appropriate and may include automated exposure control or mA/KV adjustment according to patient size. FINDINGS: The lungs are clear of mass and infiltrate. No pneumothorax or pleural effusion. No ches t wall mass or abnormal axillary lymphadenopathy seen. Mediastinal and hilar regions show no mass or lymphadenopathy. No significant cardiac finding. Endotracheal tube is in place. Tip terminates at t he mid aortic arch level approximately 4 cm above the ernst. NG tube has been placed. Tip is in the gastric body. The liver, spleen and pancreas show no focal findings for non contrast imaging. Liver capsule has a s lightly nodular contour. Cirrhosis or diffuse hepatic parenchymal disease cannot be excluded. Several gallstones are seen. No biliary tree dilatation. Acute cholecystitis is unlikely. There is respirato ry motion that precludes accurate assessment of the gallbladder jones. No hydronephrosis or suspicious renal mass. Isodense masses and pyelonephritis cannot be excluded on non contrast imaging. No adrenal abnormalities. Urinary bladder is fully contracted around a Vora c atheter. Uterus is unremarkable. Atrophic ovaries are seen with no suspicious finding. Stomach is not dilated. Jones of the stomach appear thickened and nodular for the amount of intralumi nal content. This is predominantly in the fundus and body of the stomach. A few prominent small bowel loops are present in the mid abdomen anteriorly. Large amount of stool is present dilating the rectu m to 9 cm. Large stool volume distends the sigmoid colon. Right-side of the colon decompressed. Appen lilly is not clearly defined. An acute appendicitis is unlikely. No free air or pneumatosis. Scattered nonspecific mesenteric lymph nodes are present. No bulky lymphadenopathy. Patient has a large 18 centimeter diameter left mid abdomen hernia. The neck is 6 cm in diameter. The hernia contains fat and ascites. A right inferior umbilical hernia is present containing a portion o f the right-side transverse colon. There is ascites within the hernia as well. The herniated bowel do es not show wall thickening or acute edema. There is additional ascites present in the peritoneal cav ity. No significant bone or vascular finding. Dense arterial tree calcifications are present. IVC filter i s in place. IMPRESSION: No acute CT chest finding identified. Endotracheal tube and NG tube are well positioned. Several prominent small bowel loops are present in the mid abdomen. Acute bowel obstruction is not id entified. Large amount of stool is present dilating the rectum to 9 cm. Stool distends the rectum. Cholelithiasis without additional findings to suspect acute cholecystitis. Multiple abdominal wall hernias mostly containing fat and ascites. Right lower quadrant hernia contai kandis short segment of transverse colon with no acute colon component. Thickened nodular jones to the fundus and body of the stomach. Gastritis would be a possibility. Infi ltrative gastric wall process cannot be excluded. CT abdomen and pelvis imaging shows no significant or suspicious finding.
--- NOTE | 2021-10-17 19:32 | P.HP ---
Certification for Inpatient Patient admitted to: Inpatient With expected LOS: >2 Midnights Patient will require the following post-hospital care: None Practitioner: I am a practitioner with admitting privileges, knowledge of patient current condition, hospital course, and medical plan of care. Services: Services provided to patient in accordance with Admission requirements found in Title 42 Section 412.3 of the Code of Federal Regulations Patient History Date of Service: 10/17/21 Reason for admission: Unresponsive History of Present Illness: 66-year-old female with unknown past medical history presented to the emergency department unresponsive. Her neighbors reportedly called EMS for welfare check as had not seen her recently. Upon arrival patient was noted to be unresponsive/minimally responsive to pain only. Patient was evaluated in the emergency department she was intubated for airway protection given her mental status her labs were significant for acute renal failure significantly elevated ammonia level 349 mildly elevated troponin urine drug screen positive for THC. CT head brain without contrast negative for acute findings chest x-ray unremarkable CT chest abdomen pelvis without IV contrast did demonstrate multiple abdominal wall hernias mostly containing fat and ascites without any acute colon component thickened nodular jones of the fundus and body the stomach gastritis would be possibility infiltrative gastric wall process cannot be excluded. At some point it was mentioned to one of the EMS providers that patient had a history of gastric cancer but additional medical history not available, no family present or in demographics to contact. Patient was given some lactulose in the emergency department through NG tube ED provider wishes to admit to ICU for further evaluation and management of suspected hepatic encephalopathy. Initial lactic acid also elevated, was 6.1 patient did receive 30 cc/kg IV fluid bolus in the ER, repeat lactate levels pending patient was covered with empiric antibioticRocephin. Allergies Unable to Assess Allergy (Unverified 10/17/21 16:55) - Past Medical/Surgical History -: Unknown possible gastric cancer Psychosocial/ Personal History: Unable to obtain patient unresponsive, on ventilator - Family History Mother History Unknown: Yes - Social History Smoking Status: Unknown if ever smoked Place of Residence: Home Review of Systems is unable to be obtained Physical Examination - Physical Exam General: Unresponsive (On ventilator) HEENT: Scleral icterus Neck: 2+ carotid pulse no bruit Respiratory: Crackles/rales Cardiovascular: Normal S1 S2 Capillary refill: <2 Seconds Gastrointestinal: Hypoactive, Other (Large ventral hernias) Musculoskeletal: No contractures, No erythema, No tenderness Integumentary: No tenderness/swelling, No erythema, No warmth Neurological: Other (Unresponsive, on ventilator) - Studies Laboratory Data (last 24 hrs) 10/17/21 17:40: PT 15.8 H, INR 1.43, APTT 34.8 10/17/21 16:51: Glucose Cancelled 10/17/21 16:27: Sodium 130 L, Potassium 4.8, BUN 28 H, Creatinine 2.00 H, Glucose 135 H, Magnesium 1.7 L, Total Bilirubin 2.3 H, AST 30, ALT 24, Alkaline Phosphatase 127 H Assessment and Plan - Plan Assessment: Hepatic encephalopathy suspect underlying cirrhosis Acute renal failure Lactic acidosis Gastric wall thickening/questionable history of gastric cancer Large ventral hernias Plan: Hepatic encephalopathy suspect underlying cirrhosis: Will provide patient with scheduled rectal lactulose this evening x2 doses, repeat ammonia level in the morning. Liver ultrasound ordered. N.p.o. continue ICU level of care/ventilator management as patient was intubated for airway protection. Acute renal failure: Nephrology consulted continue gentle hydration that evening renal ultrasound ordered. Lactic acidosis: Doubt septic shock at this time, no identifiable source of infection noted. Patient did receive 30 cc/kg fluid bolus in ER, is currently covered with empiric antibioticsRocephin. Will trend lactate level. Gastric wall thickening/questionable history of gastric cancer: Noted on CT scan. Will need to question patient further when she is more alert. Large ventral hernias: No acute component noted on CT scan. DVT PPX: Heparin Code status: Full Discharge Plan: Home Plan to discharge in: Greater than 2 days - Advance Directives Does patient have a Living Will: No Does patient have a Durable POA for Healthcare: No - Code Status/Comfort Care Code Status Assessed: Yes (Full code) Critical Care: No Time Spent Managing Pts Care (In Minutes): 55
[2021-10-17 19:55] LABS: Absolute Lymphocytes (CBC) 2.1 K/uL (0.7-4.9); Hematocrit 36.8 % (36.0-45.0); Lymphocytes % 13.1 % (15.3-44.8); MPV 7.6 fL (7.6-11.3)
[2021-10-17] MEDS ORDERED: ONDANSETRON 4 MG/2 ML VIAL IV PRN (21:03)
[2021-10-17] MEDS ORDERED: NA CHLORIDE 0.9% 250 ML IV PRN (21:03)
[2021-10-17] MEDS ORDERED: FENTANYL CITR 100 MCG/2 ML IV PRN (21:03)
[2021-10-17] MEDS ORDERED: LORazepam 2 MG/ML VIAL IV PRN (21:03)
[2021-10-17] MEDS ORDERED: FAMOTIDINE 20 MG/2 ML VIAL IV ONE (22:00)
[2021-10-17] MEDS: HEPARIN 5000 UNIT/ML 1 ML VIAL SQ SCH (22:31)
[2021-10-17] MEDS: NA CHLORIDE 0.9% 1,000 ML IV SCH (22:31)
[2021-10-17] MEDS: LACTULOSE 20 GM/30 ML UCUP PR SCH (22:33)
[2021-10-17 22:44] LABS: Blood Gas Oxyhemoglobin 93.7 % (94-97); Blood O2 Saturation 94.5 % (92-98.5)
[2021-10-18] MEDS: PIPER TAZO 3.375 GM in NA CHLORIDE 0.9% 100 ML IV SCH ×2 (00:20→09:25)
[2021-10-18] MEDS: LACTULOSE 20 GM/30 ML UCUP PR SCH (04:04)
[2021-10-18 05:22] LABS: Albumin 2.1 g/dL (3.4-5.0); Bilirubin Total 1.7 mg/dL (0.2-1.0); C-Reactive Protein 38.1 mg/L (<3.00); Magnesium 1.6 mg/dL (1.8-2.4); Potassium 3.8 mmol/L (3.5-5.1); Protein, Total 6.2 g/dL (6.4-8.2); Thyroid Stimulating Hormone 0.395 uIU/mL (0.360-3.740)
[2021-10-18 05:24] LABS: Absolute Lymphocytes (CBC) 2.8 K/uL (0.7-4.9); Hematocrit 37.9 % (36.0-45.0); Lymphocytes % 17.7 % (15.3-44.8); MPV 8.1 fL (7.6-11.3); RBC Red Blood Cell Count 3.73 M/uL (3.86-4.86)
[2021-10-18 05:28] LABS: Troponin High Sensitivity 174.3 pg/mL (<58.9)
[2021-10-18 05:58] LABS: Blood Morphology Comment NOTED (NOT SEEN); Platelet Estimate ADEQ; Polychromasia 1+; Target Cells 1+
--- NOTE | 2021-10-18 06:28 | P.PN ---
Date of Service: 10/18/21 Subjective: no acute events overnight. no significant change minimal responsiveness, not on sedation ROS: unable to be obtained, patient intubated, unresponsive Physical exam Gen: intubated, minimal responsiveness - to pain HEENT: PERRL, normal conjunctiva CV: regular rate/rhythm, no murmur Pulm: on mech vent, clear bilaterally Abd: +ascites, soft Neuro: moves b/l extremities slightly to pain Problem List Hepatic encephalopathy suspect underlying cirrhosis Acute renal failure Lactic acidosis Gastric wall thickening/questionable history of gastric cancer Large ventral hernias Hepatic encephalopathy suspect underlying cirrhosis: s/p lactulose enemas x2 ammonia level improving liver U/S completed, pending read NPO, intubated for airway protection, pulmonology consulted continue enema via NGT continue ICU level of care Acute renal failure: Nephrology consulted continue gentle hydration renal ultrasound ordered. Lactic acidosis: Doubt septic shock at this time, no identifiable source of infection noted. Patient did receive 30 cc/kg fluid bolus in ER, is currently covered with empiric antibioticsRocephin. lactate improved Gastric wall thickening/questionable history of gastric cancer: Noted on CT scan. Will need to question patient further when she is more alert. unable to get ahold of any family/friends Large ventral hernias: No acute component noted on CT scan. DVT PPX: Heparin Code status: Full Dispo: unclear at this time, anticipate hospitalization > 2days Time Spent Managing Pts Care (In Minutes): 35
[2021-10-18 06:30] LABS: Blood Gas Oxyhemoglobin 94.6 % (94-97); Blood O2 Saturation 97.4 % (92-98.5)
--- NOTE | 2021-10-18 07:17 | RAD REPORT ---
EXAM DESCRIPTION: US - Renal Ultrasound-Complete - 10/18/2021 3:38 am CLINICAL HISTORY: arf COMPARISON: Abdomen Pelvis W Contrast dated 03/23/2021; Chest Abd Pelvis Wo Con dated 10/17/2021 FINDINGS: The right kidney measures 8.8 cm. No hydronephrosis, focal mass or perinephric fluid. The left kidney was obscured by bowel gas. IMPRESSION: No right-sided hydronephrosis or abnormality identified. Left kidney obscured by bowel gas. No hydronephrosis was identified on the left kidney on yesterday's CT.
--- NOTE | 2021-10-18 07:21 | RAD REPORT ---
EXAM DESCRIPTION: US - Liver Only - 10/18/2021 3:38 am CLINICAL HISTORY: ABN LFT, elevated ammonia COMPARISON: Chest Abd Pelvis Wo Con dated 10/17/2021 FINDINGS: Coarsened echotexture of the liver consistent with cirrhosis. Heterogeneity of the echotex ture may be secondary to areas of fibrosis. No discrete mass identified. The spleen measures 9.2 cm a nd is within normal limits. Ascites is noted. Visualized pancreas is unremarkable. Portions are not v isualized due to overlying bowel gas. Cholelithiasis and sludge is noted with small volume of pericho lecystic fluid. Note also that the portal vein is not well evaluated. IMPRESSION: Cirrhotic liver morphology with ascites noted. Cholelithiasis with sludge. Pericholecystic fluid may be related underlying liver disease and ascites .
--- NOTE | 2021-10-18 07:54 | P.CNS ---
Date of Consult: 10/18/21 Reason for Consult: SRINIVASA Requesting Physician: Jamarcus Webb Chief Complaint: Unresponsive History of Present Illness: 66-year-old female with unknown past medical history presented to the emergency department unresponsive. Her neighbors reportedly called EMS for welfare check as had not seen her recently. Upon arrival patient was noted to be unresponsive/minimally responsive to pain only. Patient was evaluated in the emergency department she was intubated for airway protection given her mental status her labs were significant for acute renal failure significantly elevated ammonia level 349 mildly elevated troponin urine drug screen positive for THC. CT head brain without contrast negative for acute findings chest x-ray unremarkable CT chest abdomen pelvis without IV contrast did demonstrate multiple abdominal wall hernias mostly containing fat and ascites without any acute colon component thickened nodular jones of the fundus and body the stomach gastritis would be possibility infiltrative gastric wall process cannot be excluded. At some point it was mentioned to one of the EMS providers that patient had a history of gastric cancer but additional medical history not available, no family present or in demographics to contact. Patient was given some lactulose in the emergency department through NG tube ED provider wishes to admit to ICU for further evaluation and management of suspected hepatic en cephalopathy. Initial lactic acid also elevated, was 6.1 patient did receive 30 cc/kg IV fluid bolus in the ER, repeat lactate levels pending patient was covered with empiric antibioticRocephin. 17:38 This 66 yrs old Female presents to ER via EMS with complaints of Unresponsive. jr8 17:38 Onset: The symptoms/episode began/occurred at an unknown time. Duration: The episode is jr8 continuous. Severity of symptoms: At their worst the symptoms were moderate in the emergency department the symptoms are unchanged. Patient's baseline: Neuro: alert and fully oriented. It is unknown whether or not the patient has had similar symptoms in the past. It is unknown whether or not the patient has recently seen a physician. This is a 66-year-old female patient that presented to the emergency room via EMS after being called out for a welfare check by police department. Neighbors had not heard from her and so they had called police. Police entered and found patient unresponsive on the couch. EMS got there found her on her left side laying on the couch. Nonresponsive to any stimulus. Initially hypotensive and hypoxic. Patient upon arrival to emergency room on oxygen oxygenating at 100% on a nonrebreather 10 L/min. Still unresponsive. Only known history is a possible stomach cancer Allergies Unable to Assess Allergy (Unverified 10/17/21 16:55) Home medications list reviewed: Yes Home Medications: Furosemide [Lasix] 20 mg PO DAILY 10/19/21 L.acidoph,Paracasei, B.lactis [Probiotic] 1 each PO DAILY 10/19/21 Lactulose [Cephulac*] DAILY 10/19/21 Spironolactone 50 mg PO BID 10/19/21 - Past Medical/Surgical History -: Unknown possible gastric cancer Psychosocial/ Personal History: Unable to obtain patient unresponsive, on ventilator - Family History Mother History Unknown: Yes - Social History Smoking Status: Current every day smoker CD- Drugs: Yes Place of Residence: Home Review of Systems is unable to be obtained Gastrointestinal: Diarrhea Physical Examination Temp Pulse Resp BP Pulse Ox 97.8 F 108 H 24 H 109/77 97 10/18/21 04:00 10/18/21 06:00 10/18/21 06:00 10/18/21 06:00 10/18/21 06:00 General: Unresponsive HEENT: Atraumatic Neck: Supple Respiratory: Clear to auscultation bilaterally Cardiovascular: No edema, Regular rate/rhythm Gastrointestinal: Soft and benign, Non-distended, Other Musculoskeletal: No clubbing, No contractures Integumentary: No rashes, No cyanosis Laboratory Data (last 24 hrs) 10/17/21 17:40: PT 15.8 H, INR 1.43, APTT 34.8 10/17/21 16:51: Glucose Cancelled 10/17/21 16:27: Sodium 130 L, Potassium 4.8, BUN 28 H, Creatinine 2.00 H, Glucose 135 H, Magnesium 1.7 L, Total Bilirubin 2.3 H, AST 30, ALT 24, Alkaline Phosphatase 127 H Imagings Data: EXAM DESCRIPTION: US - Renal Ultrasound-Complete - 10/18/2021 3:38 am CLINICAL HISTORY: arf COMPARISON: Abdomen Pelvis W Contrast dated 03/23/2021; Chest Abd Pelvis Wo Con dated 10/17/2021 FINDINGS: The right kidney measures 8.8 cm. No hydronephrosis, focal mass or perinephric fluid. The left kidney was obscured by bowel gas. IMPRESSION: No right-sided hydronephrosis or abnormality identified. Left kidney obscured by bowel gas. No hydronephrosis was identified on the left kidney on yesterday's CT. EXAM DESCRIPTION: CT - Chest Abd Pelvis Wo Con - 10/17/2021 6:12 pm CLINICAL HISTORY: Unresponsive, hypotensive, elev. lactate/ammonia COMPARISON: Chest For Pe Angio dated 03/23/2021; Chest Single View dated 10/17/2021 TECHNIQUE: Axial 5 millimeter thick images of the chest, abdomen and pelvis were obtained without IV contrast. Oral contrast was administered. All CT scans are performed using dose optimization technique as appropriate and may include automated exposure control or mA/KV adjustment according to patient size. FINDINGS: The lungs are clear of mass and infiltrate. No pneumothorax or pleural effusion. No chest wall mass or abnormal axillary lymphadenopathy seen. Mediastinal and hilar regions show no mass or lymphadenopathy. No significant cardiac finding. Endotracheal tube is in place. Tip terminates at the mid aortic arch level approximately 4 cm above the ernst. NG tube has been placed. Tip is in the gastric body. The liver, spleen and pancreas show no focal findings for non contrast imaging. Liver capsule has a slightly nodular contour. Cirrhosis or diffuse hepatic parenchymal disease cannot be excluded. Several gallstones are seen. No biliary tree dilatation. Acute cholecystitis is unlikely. There is respiratory motion that precludes accurate assessment of the gallbladder jones. No hydronephrosis or suspicious renal mass. Isodense masses and pyelonephritis cannot be excluded on non contrast imaging. No adrenal abnormalities. Urinary bladder is fully contracted around a Vora catheter. Uterus is unremarkable. Atrophic ovaries are seen with no suspicious finding. Stomach is not dilated. Jones of the stomach appear thickened and nodular for the amount of intraluminal content. This is predominantly in the fundus and body of the stomach. A few prominent small bowel loops are present in the mid abdomen anteriorly. Large amount of stool is present dilating the rectum to 9 cm. Large stool volume distends the sigmoid colon. Right-side of the colon decompressed. Appendix is not clearly defined. An acute appendicitis is unlikely. No free air or pneumatosis. Scattered nonspecific mesenteric lymph nodes are present. No bulky lymphadenopathy. Patient has a large 18 centimeter diameter left mid abdomen hernia. The neck is 6 cm in diameter. The hernia contains fat and ascites. A right inferior umbilical hernia is present containing a portion of the right-side transverse colon. There is ascites within the hernia as well. The herniated bowel does not show wall thickening or acute edema. There is additional ascites present in the peritoneal cavity. No significant bone or vascular finding. Dense arterial tree calcifications are present. IVC filter is in place. IMPRESSION: No acute CT chest finding identified. Endotracheal tube and NG tube are well positioned. Several prominent small bowel loops are present in the mid abdomen. Acute bowel obstruction is not identified. Large amount of stool is present dilating the rectum to 9 cm. Stool distends the rectum. Cholelithiasis without additional findings to suspect acute cholecystitis. Multiple abdominal wall hernias mostly containing fat and ascites. Right lower quadrant hernia containing short segment of transverse colon with no acute colon component. Thickened nodular jones to the fundus and body of the stomach. Gastritis would be a possibility. Infiltrative gastric wall process cannot be excluded. CT abdomen and pelvis imaging shows no significant or suspicious finding. EXAM DESCRIPTION: RAD - Chest Single View - 10/17/2021 4:59 pm CLINICAL HISTORY: DYSPNEA COMPARISON: None TECHNIUE: AP portable chest image was obtained 10/17/2021 4:59 pm . FINDINGS: ET tube has been placed. Tip is mid aortic arch level 4 cm above the ernst. No focal mass or consolidation. No diffuse pulmonary edema. Interstitial markings are prominent. Left hemidiaphragm elevation noted. No reuben mass seen. Heart and vasculature are normal. No measurable pleural effusion and no pneumothorax. No acute bony abnormality seen. No acute aortic findings suspected. IMPRESSION: ET tube placement in good position 4 cm above the ernst. Conclusions/Impression: SRINIVASA may be due to hypovolemia. ATN? -Continue gentle IVF Hyponatremia -Continue gentle IVF with NS Hypomagnesemia -Replete with IV magnesium Moderate malnutrition -Advance nutrition as tolerated Hepatic encephalopathy Liver cirrhosis -Continue Lactulose Acute respiratory failure -Intubated -Continue ventilatory support Thank you kindly for the consultation. Critical Care: Yes (>30min)
--- NOTE | 2021-10-18 08:29 | RAD REPORT ---
EXAM DESCRIPTION: RAD - Chest Single View - 10/18/2021 8:21 am CLINICAL HISTORY: intubated COMPARISON: Chest Single View dated 10/17/2021; Chest Abd Pelvis Wo Con dated 10/17/2021 FINDINGS: Lines: Endotracheal tube at the aortic arch in satisfactory position. Enteric tube below t he diaphragm. Lungs: Atelectasis at the left lung base. Pleural: No significant pleural effusions or pneumothorax. Cardiac: The heart size is within normal limits. Bones: No acute fractures. Other: IMPRESSION: Endotracheal tube and enteric tube in satisfactory position. Likely atelectasis at the l eft lung base.
[2021-10-18] MEDS: FAMOTIDINE 20 MG/2 ML VIAL IV SCH ×2 (09:03→20:31)
[2021-10-18] MEDS: HEPARIN 5000 UNIT/ML 1 ML VIAL SQ SCH ×2 (09:03→20:30)
[2021-10-18] MEDS: LACTULOSE 20 GM/30 ML UCUP FT SCH ×3 (09:03→20:30)
[2021-10-18] MEDS: NA CHLORIDE 0.9% 1,000 ML IV SCH ×2 (09:07→19:21)
[2021-10-18] MEDS ORDERED: POTASSIUM 25 MEQ EFFERV TAB PO ONE (09:48)
[2021-10-18] MEDS ORDERED: MAGNESIUM SULFATE 1 gm IVPB 1 GM/100 ML BAG IV ONE (09:49)
--- NOTE | 2021-10-18 12:35 | EKG ---
Test Date: 2021-10-17 Test Time: 16:21:51 Tenant Coordinator: LIZ MEASUREMENT RESULTS: Intervals: Rate: 102 AL: 142 QRSD: 66 QT: 384 QTc: 500 [place]: P: 82 AL: 142 QRS: 39 T: 58 INTERPRETIVE STATEMENTS: Sinus tachycardia Otherwise normal ECG No previous ECG available for comparison Electronically Signed On 10-18-21 12:33:14 CDT by Chester Lemon
--- NOTE | 2021-10-18 12:58 | P.CNS ---
Date of Consult: 10/18/21 Reason for Consult: Respiratory failure patient on a ventilator Chief Complaint: Unresponsive History of Present Illness: Patient is 66 years of age admitted unresponsive currently on a ventilator acute renal failure possible hepatic encephalopathy no history obtainable Troponins elevated patient is comatose Allergies Unable to Assess Allergy (Unverified 10/17/21 16:55) - Past Medical/Surgical History -: Unknown possible gastric cancer Psychosocial/ Personal History: Unable to obtain patient unresponsive, on ventilator - Family History Mother History Unknown: Yes - Social History Smoking Status: Current every day smoker CD- Drugs: Yes Place of Residence: Home Review of Systems is unable to be obtained Physical Examination Temp Pulse Resp BP Pulse Ox 98.4 F 108 H 22 H 105/79 98 10/18/21 08:00 10/18/21 11:00 10/18/21 11:00 10/18/21 11:00 10/18/21 11:00 General: Comatose Neck: Supple Respiratory: Clear to auscultation bilaterally, Diminished Cardiovascular: Normal S1 S2, Edema Gastrointestinal: Normal bowel sounds, Other (Patient has abdominal hernias) Laboratory Data (last 24 hrs) 10/17/21 17:40: PT 15.8 H, INR 1.43, APTT 34.8 10/17/21 16:51: Glucose Cancelled 10/17/21 16:27: Sodium 130 L, Potassium 4.8, BUN 28 H, Creatinine 2.00 H, Glucose 135 H, Magnesium 1.7 L, Total Bilirubin 2.3 H, AST 30, ALT 24, Alkaline Phosphatase 127 H - Problems (1) Respiratory failure Current Visit: Yes Status: Acute Plan: Patient is 66 years of age admitted unresponsive was intubated in the emergency room patient has renal insufficiency elevated ammonia and lactic acid elevated white count ultrasound consistent with chronic liver disease most likely cirrhosis ultrasound of the kidney no obstruction blood gases showed respiratory alkalosis blood cultures are so far pending change to Rocephin once a day use high doses continue with IV fluids add thiamine CT of the head is negative patient is on minimal oxygen FiO2 30% is mainly for airway protection
--- NOTE | 2021-10-18 13:05 | ECHO ---
HEIGHT: 5 ft 7 in WEIGHT: 171 lb 0 oz DATE OF STUDY: 10/18/[address]: Chester Lemon MD 2-DIMENSIONAL: YES M.MODE: YES DOPPLER: YES COLOR FLOW: YES TDS: YES PORTABLE: YES DEFINITY: NO BUBBLE STUDY: NO DIAGNOSIS: ELEVATED TROPONIN CARDIAC HISTORY: CATHERIZATION: SURGERY: PROSTHETIC VALVE: PACEMAKER: MEASUREMENTS (cm) DIASTOLIC (NORMALS) SYSTOLIC (NORMALS) IVSd 0.9 (0.6-1.2) LA Diam (1.9-4.0) LVEF 66% LVIDd 3.8 (3.5-5.7) LVIDs 2.4 (2.0-3.5) %FS 36% LVPWd 0.9 (0.6-1.2) Ao Diam 3.0 (2.0-3.7) 2 DIMENSIONAL ASSESSMENT: RIGHT ATRIUM: NORMAL LEFT ATRIUM: NORMAL RIGHT VENTRICLE: NORMAL LEFT VENTRICLE: NORMAL TRICUSPID VALVE: NORMAL MITRAL VALVE: NORMAL PULMONIC VALVE: NORMAL AORTIC VALVE: NORMAL PERICARDIAL EFFUSION: NONE AORTIC ROOT: NORMAL LEFT VENTRICULAR WALL MOTION: NORMAL. DOPPLER/COLOR FLOW: MILD TRICUSPID REGURGITATION. COMMENTS: TECHNICALLY DIFFICULT STUDY. GROSSLY NORMAL LEFT VENTRICULAR SIZE AND FUNCTION. NO EFFUSION. TECHNOLOGIST: ASHLY WALLS
[2021-10-18] MEDS: CEFTRIAXONE 2,000 MG in NA CHLORIDE 0.9% 100 ML IV SCH (13:46)
--- NOTE | 2021-10-18 14:13 | CON ---
Date of Consultation: 10/18/2021 I saw the patient on 10/18/2021. Reason For Consultation: Elevated troponin. History Of Present Illness: Ms. Means is a patient with unknown past medical history except for stomach cancer, who was found unresponsive at home, has positive THC in her urine drug screen. Has h epatic encephalopathy, elevated white count, elevated creatinine, elevated procalcitonin, lactic acid , troponin of 174, intubated with a pO2 of 112, pCO2 of 28, pH of 7.48. Was found unresponsive by manolo harding, after they called EMS. No history can be obtained, otherwise. Allergies: UNKNOWN. Medications: At home are unknown. Family History: Unobtainable. Social History: Unobtainable. Review of Systems: Unobtainable. Physical Examination: General: Intubated. Vital Signs: Stable. Afebrile. Sinus rhythm. HEENT: Negative. Neck: Supple with no bruit. Chest: Clear. Cardiac: Revealed a regular rhythm and rate. No murmurs, gallops, or rubs. Abdomen: Benign. Extremities: Revealed no clubbing, cyanosis, or edema. Diagnostic Data: As stated earlier. EKG is nonspecific. Chest x-ray is negative. CT of the abdome n showed multiple abdominal hernias with some ascites. Impression And Plan: Elevated troponin. I do not think we are dealing with an acute coronary syndro me. I think this is secondary to demand ischemia from sepsis, renal insufficiency, and hypoxia. I w ill get an echocardiogram to rule out wall motion abnormalities. Otherwise, I agree with the present regimen. Nephrology is following. I will be available for questions if the need arise. RUSS/HARLANL Voice ID: [id number] Report ID: [id number]
[2021-10-18] MEDS: THIAMINE 200 MG/2 ML INJ IVP SCH (20:31)
[2021-10-18 23:51] LABS: Urine Appearance Clear (Clear); Urine Blood 2+ (Negative); Urine Color AMBER (Yellow); Urine Glucose Negative (Negative); Urine Microscopic Reflex ORDER UMIC; Urine Protein Negative (Negative); Urine Specific Gravity >=1.030 (1.005-1.030); Urine pH 5.5 (5.0-7.0)
[2021-10-18 23:58] LABS: Urine Bilirubin NEGATIVE (Negative)
[2021-10-18 23:59] LABS: UR SODIUM < 15 mmol/L (27-287)
[2021-10-19 00:02] LABS: UR PROTEIN 79.9 mg/dL (<11.9); Urine Protein/Creatinine Ratio 0.4 ratio (<0.15)
[2021-10-19 00:20] LABS: Urine Bacteria <20 /HPF (<20); Urine Urothelial Cells <5 /HPF (NONE SEEN)
[2021-10-19 04:45] LABS: Hematocrit 36.4 % (36.0-45.0); MPV 7.4 fL (7.6-11.3); RBC Red Blood Cell Count 3.61 M/uL (3.86-4.86)
[2021-10-19] MEDS: NA CHLORIDE 0.9% 1,000 ML IV SCH (04:48)
[2021-10-19 05:03] LABS: Albumin 1.9 g/dL (3.4-5.0); Bilirubin Total 1.6 mg/dL (0.2-1.0); Magnesium 2.2 mg/dL (1.8-2.4); Phosphorus 5.1 mg/dL (2.5-4.9); Potassium 3.6 mmol/L (3.5-5.1); Protein, Total 5.8 g/dL (6.4-8.2); Uric Acid 8.8 mg/dL (2.6-6.0)
--- NOTE | 2021-10-19 06:06 | P.PN ---
Date of Service: 10/19/21 Subjective: moving all 4 extremities, does seem to hear when speaking her name - eyelids twitch unable to follow commands remains intubated, no sedation ROS: unable to be obtained, patient intubated, unresponsive Physical exam Gen: intubated, minimal responsiveness HEENT: PERRL, slight scleral icterus CV: regular rate/rhythm, no murmur Pulm: on mech vent, clear bilaterally Abd: +ascites, soft, multiple large abdominal wall hernias Neuro: moves b/l extremities slightly to pain Problem List Hepatic encephalopathy suspect underlying cirrhosis Acute renal failure Lactic acidosis Gastric wall thickening/questionable history of gastric cancer Large ventral hernias #Hepatic encephalopathy suspect underlying cirrhosis: s/p lactulose enemas x2 on admission ammonia level improving liver U/S completed: cirrhosis, biliary sludge NPO, intubated for airway protection, pulmonology consulted continue lactulose via NGT, decrease frequency, pt with frequent stool continue ICU level of care attempting to get a hold of friends/neighbors, no current med records suspect will take time to have further improvement of mentation. unknown how long patient has been this way at home Neuro consulted, eval for other etiologies, EEG ordered #Acute renal failure: Nephrology consulted continue gentle hydration renal ultrasound ordered. #Lactic acidosis: Doubt septic shock at this time, no identifiable source of infection noted. Patient did receive 30 cc/kg fluid bolus in ER, is currently covered with empiric antibioticsRocephin. lactate improved #Gastric wall thickening/questionable history of gastric cancer: Noted on CT scan. Will need to question patient further when she is more alert. unable to get ahold of any family/friends #Large ventral hernias: No acute component noted on CT scan. DVT PPX: Heparin Code status: Full Dispo: unclear at this time, anticipate hospitalization > 2days Time Spent Managing Pts Care (In Minutes): 35
--- NOTE | 2021-10-19 07:34 | RAD REPORT ---
EXAM DESCRIPTION: RAD - Chest Single View - 10/19/2021 5:41 am CLINICAL HISTORY: [facility] COMPARISON: Chest Single View dated 10/18/2021; Chest Single View dated 10/17/2021 FINDINGS: Lines: Endotracheal tube and NG tube in similar position. Lungs: Slight improved aeration of the left lung base. The upper with some residual atelectasis. Pleural: No significant pleural effusions or pneumothorax. Cardiac: The heart size is within normal limits. Bones: No acute fractures. Other: IMPRESSION: Mild improved aeration of the lungs. Support apparatus stable.
[2021-10-19] MEDS: HEPARIN 5000 UNIT/ML 1 ML VIAL SQ SCH ×2 (09:28→20:21)
[2021-10-19] MEDS: LACTULOSE 20 GM/30 ML UCUP FT SCH ×2 (09:28→20:21)
[2021-10-19] MEDS: FAMOTIDINE 20 MG/2 ML VIAL IV SCH ×2 (09:28→20:21)
[2021-10-19] MEDS: THIAMINE 200 MG/2 ML INJ IVP SCH ×2 (09:28→20:21)
[2021-10-19] MEDS: CEFTRIAXONE 2,000 MG in NA CHLORIDE 0.9% 100 ML IV SCH (09:29)
[2021-10-19] MEDS: NACHLORIDE 0.45% 1,000 ML IV SCH ×2 (11:16→20:22)
--- NOTE | 2021-10-19 12:26 | P.PN ---
Subjective Date of Service: 10/19/21 Chief Complaint: Unresponsive Subjective: Improving (Patient is improving becoming more responsive) Review of Systems is unable to be obtained Physical Examination - Vital Signs Temperature: 96.9 F Blood Pressure: 105/77 Pulse: 97 Respirations: 12 Pulse Ox (%): 100 - Physical Exam General: Other (Opening eyes) HEENT: Atraumatic Neck: Supple Respiratory: Clear to auscultation bilaterally Cardiovascular: No edema, Regular rate/rhythm - Studies Microbiology Data (last 24 hrs): 10/17/21 16:50 Catheterized Urine [place] Count - Final No growth. 10/17/21 16:50 Catheterized Urine - Final No growth. Assessment And Plan - Current Problems (Diagnosis) (1) Respiratory failure Current Visit: Yes Status: Acute Plan: Patient's condition is stable is hepatic encephalopathy plan to wean and extubate white count is still elevated reduce dose of Rocephin blood cultures are negative Qualifiers: Chronicity: acute
[2021-10-19] MEDS ORDERED: POTASSIUM 25 MEQ EFFERV TAB PO ONE (13:56)
--- NOTE | 2021-10-19 20:44 | P.PN ---
Date of Service: 10/19/21 Vital Signs Temp Pulse Resp BP Pulse Ox 98.1 F 95 H 14 102/76 100 10/19/21 20:00 10/19/21 20:00 10/19/21 20:00 10/19/21 20:00 10/19/21 20:00 Medications Famotidine (Famotidine 20 Mg/2 Ml Vial) 20 mg IV BID [facility] Last Admin: 10/19/21 20:21 Dose: 20 mg Documented by: Fentanyl Citrate (Fentanyl Citr 100 Mcg/2 Ml) 25 mcg IV Q4HP PRN PRN Reason: Pain scale 8-10 (Severe) Heparin Sodium (Porcine) (Heparin 5000 Unit/Ml 1 Ml Vial) 5,000 unit SQ Q12HR [facility] Last Admin: 10/19/21 20:21 Dose: 5,000 unit Documented by: Sodium Chloride (Sodium Chloride) 250 mls @ 999 mls/hr IV Q15M PRN PRN Reason: HYPOTENSION Sodium Chloride (Sodium Chloride 0.45%) 1,000 mls @ 100 mls/hr IV .Q10H [facility] Last Admin: 10/19/21 20:22 Dose: 1,000 mls Documented by: Ceftriaxone Sodium 1,000 mg/ (Sodium Chloride) 50 mls @ 100 mls/hr IVPB DAILY [facility] Lactulose (Lactulose 20 Gm/30 Ml Ucup) 20 gm FT BID [facility] Last Admin: 10/19/21 20:21 Dose: 20 gm Documented by: Ondansetron HCl (Ondansetron 4 Mg/2 Ml Vial) 4 mg IV Q6HP PRN PRN Reason: NAUSEA / VOMITING Sodium Chloride (Flush Normal Saline 10 Ml) 10 ml IV BID [facility] Last Admin: 10/19/21 20:22 Dose: 10 ml Documented by: Thiamine HCl (Thiamine 200 Mg/2 Ml Inj) 200 mg IVP BID [facility] Last Admin: 10/19/21 20:21 Dose: 200 mg Documented by: Microbiology Results 10/17/21 16:50 Catheterized Urine [place] Count - Final No growth. 10/17/21 16:50 Catheterized Urine - Final No growth. 10/17/21 16:40 Blood - Blood Aerobic Blood Culture - Preliminary No growth in 24 hours. 10/17/21 16:40 Blood - Blood Anaerobic Blood Culture - Preliminary No growth in 24 hours. 10/17/21 16:27 Blood - Blood Aerobic Blood Culture - Preliminary No growth in 24 hours. 10/17/21 16:27 Blood - Blood Anaerobic Blood Culture - Preliminary No growth in 24 hours. Assessment/ Plan: Nephrology No dyspnea No chest pain No acute events overnight Vitals, medications, blood work and imaging reviewed in the chart. General: Unresponsive HEENT: Atraumatic Neck: Supple Respiratory: Clear to auscultation bilaterally Cardiovascular: No edema, Regular rate/rhythm Gastrointestinal: Soft and benign, Non-distended, Other Musculoskeletal: No clubbing, No contractures Integumentary: No rashes, No cyanosis Greater than 30min patient care Laboratory Data (last 24 hrs) 10/17/21 17:40: PT 15.8 H, INR 1.43, APTT 34.8 10/17/21 16:51: Glucose Cancelled 10/17/21 16:27: Sodium 130 L, Potassium 4.8, BUN 28 H, Creatinine 2.00 H, Glucose 135 H, Magnesium 1.7 L, Total Bilirubin 2.3 H, AST 30, ALT 24, Alkaline Phosphatase 127 H Imagings Data: EXAM DESCRIPTION: US - Renal Ultrasound-Complete - 10/18/2021 3:38 am CLINICAL HISTORY: arf COMPARISON: Abdomen Pelvis W Contrast dated 03/23/2021; Chest Abd Pelvis Wo Con dated 10/17/2021 FINDINGS: The right kidney measures 8.8 cm. No hydronephrosis, focal mass or perinephric fluid. The left kidney was obscured by bowel gas. IMPRESSION: No right-sided hydronephrosis or abnormality identified. Left kidney obscured by bowel gas. No hydronephrosis was identified on the left kidney on yesterday's CT. EXAM DESCRIPTION: CT - Chest Abd Pelvis Wo Con - 10/17/2021 6:12 pm CLINICAL HISTORY: Unresponsive, hypotensive, elev. lactate/ammonia COMPARISON: Chest For Pe Angio dated 03/23/2021; Chest Single View dated 10/17/2021 TECHNIQUE: Axial 5 millimeter thick images of the chest, abdomen and pelvis were obtained without IV contrast. Oral contrast was administered. All CT scans are performed using dose optimization technique as appropriate and may include automated exposure control or mA/KV adjustment according to patient size. FINDINGS: The lungs are clear of mass and infiltrate. No pneumothorax or pleural effusion. No chest wall mass or abnormal axillary lymphadenopathy seen. Mediastinal and hilar regions show no mass or lymphadenopathy. No significant cardiac finding. Endotracheal tube is in place. Tip terminates at the mid aortic arch level approximately 4 cm above the ernst. NG tube has been placed. Tip is in the gastric body. The liver, spleen and pancreas show no focal findings for non contrast imaging. Liver capsule has a slightly nodular contour. Cirrhosis or diffuse hepatic parenchymal disease cannot be excluded. Several gallstones are seen. No biliary tree dilatation. Acute cholecystitis is unlikely. There is respiratory motion that precludes accurate assessment of the gallbladder jones. No hydronephrosis or suspicious renal mass. Isodense masses and pyelonephritis cannot be excluded on non contrast imaging. No adrenal abnormalities. Urinary bladder is fully contracted around a Vora catheter. Uterus is unremarkable. Atrophic ovaries are seen with no suspicious finding. Stomach is not dilated. Jones of the stomach appear thickened and nodular for the amount of intraluminal content. This is predominantly in the fundus and body of the stomach. A few prominent small bowel loops are present in the mid abdomen anteriorly. Large amount of stool is present dilating the rectum to 9 cm. Large stool volume distends the sigmoid colon. Right-side of the colon decompressed. Appendix is not clearly defined. An acute appendicitis is unlikely. No free air or pneumatosis. Scattered nonspecific mesenteric lymph nodes are present. No bulky lymphadenopathy. Patient has a large 18 centimeter diameter left mid abdomen hernia. The neck is 6 cm in diameter. The hernia contains fat and ascites. A right inferior umbilical hernia is present containing a portion of the right-side transverse colon. There is ascites within the hernia as well. The herniated bowel does not show wall thickening or acute edema. There is additional ascites present in the peritoneal cavity. No significant bone or vascular finding. Dense arterial tree calcifications are present. IVC filter is in place. IMPRESSION: No acute CT chest finding identified. Endotracheal tube and NG tube are well positioned. Several prominent small bowel loops are present in the mid abdomen. Acute bowel obstruction is not identified. Large amount of stool is present dilating the rectum to 9 cm. Stool distends the rectum. Cholelithiasis without additional findings to suspect acute cholecystitis. Multiple abdominal wall hernias mostly containing fat and ascites. Right lower quadrant hernia containing short segment of transverse colon with no acute colon component. Thickened nodular jones to the fundus and body of the stomach. Gastritis would be a possibility. Infiltrative gastric wall process cannot be excluded. CT abdomen and pelvis imaging shows no significant or suspicious finding. EXAM DESCRIPTION: RAD - Chest Single View - 10/17/2021 4:59 pm CLINICAL HISTORY: DYSPNEA COMPARISON: None TECHNIUE: AP portable chest image was obtained 10/17/2021 4:59 pm . FINDINGS: ET tube has been placed. Tip is mid aortic arch level 4 cm above the ernst. No focal mass or consolidation. No diffuse pulmonary edema. Interstitial markings are prominent. Left hemidiaphragm elevation noted. No reuben mass seen. Heart and vasculature are normal. No measurable pleural effusion and no pneumothorax. No acute bony abnormality seen. No acute aortic findings suspected. IMPRESSION: ET tube placement in good position 4 cm above the ernst. Conclusions/Impression: SRINIVASA may be due to hypovolemia. ATN? -Change IVF 1/2NS Hyponatremia -Continue gentle IVF Hypomagnesemia -Replete with IV magnesium prn Moderate malnutrition -Advance nutrition as tolerated Hepatic encephalopathy Liver cirrhosis -Continue Lactulose Acute respiratory failure -Intubated -Continue ventilatory support
--- NOTE | 2021-10-19 23:01 | CON ---
Reason For Consultation: Consultation called because of altered mental status. History Of Present Illness: Ms. Means is a 66-year-old right-handed patient with chron ic liver disease and drug use who was brought to [facility] very minimally responsive. She apparently does respond to noxious stimulation with withdrawal. She was intubated for airway protect ion and blood work done. Her ammonia level was found elevated at 349, and she was positive for THC o n a urine drug screen. Head CT scan showed no acute ischemic issues. Chest x-ray and chest CT scan essentially identified multiple abdominal wall hernias without acute colonic components. However, he r white blood cell count was elevated over 16,000 with 80% neutrophils, and her lactic acid level was elevated to 6.1 with procalcitonin 0.72. However, blood cultures, aerobic and anaerobic did not avi w any growth. She was treated with Rocephin IV along with thiamine and lactulose for the hepatic enc ephalopathy. At this point, she is now hospitalized for 3 days and is beginning to respond with move ment of the arms and legs and has focal movement in response to stimulation of the extremities. Past Medical History: As noted. Allergies: UNABLE TO ASSESS AT THIS POINT. Family History: Noncontributory. Social History: Apparently uses drugs including marijuana. Review of Systems: Not possible at this point. Physical Examination: Vital Signs: Blood pressure 121/77, pulse up to 102, respiratory rate 13 to 20, temperature 97.4, ox ygen saturation 99%. She is mechanically ventilated with an FiO2 of 30, weight 170 pounds, height 5 feet 7 inches, BMI 26.6. General: Ms. Means is in bed. She is beginning to respond, lifting her head above the bed, open ing the eyes, moving the arms and legs focally to stimulation. She has good air movement and no sign ificant cyanosis or clubbing in the extremities. Neurological: It is noted, she is not on sedation, still intubated. She is beginning to respond wit h focal movements in the extremities to stimulation. She did lift her head off the bed to lightly ru bbing her forehead. Pupils appear equally round and reactive. Unable to fully assess strength, coor dination, gait. Tone is normal. Assessment: Ms. Means is a 66-year-old patient with multiple reasons for encephalopathy includin g significant hepatic encephalopathy with a very elevated ammonia. She does have THC positivity and has likely been on perhaps illegal drugs. She does have a possibility of an infection and [facility] She did have elevated procalcitonin and lactic acid. Plan: 1.Continue with lactulose aggressively IV. 2.Continue with antibiotics and with hydration. 3.Thiamine may continue. 4.She is expected to begin to return to her functional level in the next three or so days as the amm onia level begins to return to normal and diffuse out of the cerebral cortical region. 5.When possible, EEG and brain MRI without contrast. LB/MODL Voice ID: [id number] Report ID: [id number]
[2021-10-20 05:02] LABS: Absolute Lymphocytes (CBC) 4.5 K/uL (0.7-4.9); Hematocrit 34.3 % (36.0-45.0); MPV 7.3 fL (7.6-11.3); RBC Red Blood Cell Count 3.38 M/uL (3.86-4.86)
[2021-10-20 05:26] LABS: Albumin 1.9 g/dL (3.4-5.0); Bilirubin Total 1.7 mg/dL (0.2-1.0); Magnesium 2.2 mg/dL (1.8-2.4); Potassium 3.4 mmol/L (3.5-5.1); Protein, Total 5.6 g/dL (6.4-8.2)
--- NOTE | 2021-10-20 05:59 | P.PN ---
Date of Service: 10/20/21 Subjective: following commands, remains intubated no acute events overnight continues with loose stool ROS: unable to be obtained, intubated Physical exam Gen: intubated HEENT: PERRL, slight scleral icterus CV: regular rate/rhythm, no murmur Pulm: on mech vent, clear bilaterally Abd: +ascites, soft, multiple large abdominal wall hernias Neuro: follows basic commands, moves all extremities Problem List Hepatic encephalopathy, h/o HCV cirrhosis Acute renal failure Lactic acidosis Gastric wall thickening Large ventral hernias #Hepatic encephalopathy, h/o HCV cirrhosis s/p lactulose enemas x2 on admission, ammonia level improving mentation improved liver U/S completed: cirrhosis, biliary sludge likely to be extubated today, pulm following continue lactulose, changed to BID on 10/19 continue ICU level of care Neuro consulted, suspect secondary to hyperammonemia now following commands #Acute renal failure: Nephrology consulted continue gentle hydration #Lactic acidosis: Doubt sepsis at this time, no identifiable source of infection noted. afebrile. Patient did receive 30 cc/kg fluid bolus in ER, is currently covered with empiric antibioticsRocephin. Leukocytosis likely reactive lactate improved #Gastric wall thickening/questionable history of gastric cancer: Noted on CT scan. Will need to question patient further when she is more alert. unable to get ahold of any family/friends #Large ventral hernias: No acute component noted on CT scan. DVT PPX: Heparin Code status: Full Dispo: unclear at this time, anticipate hospitalization > 2days continue ICU Time Spent Managing Pts Care (In Minutes): 35
[2021-10-20] MEDS: NACHLORIDE 0.45% 1,000 ML IV SCH ×2 (06:05→16:23)
[2021-10-20] MEDS: CEFTRIAXONE 1,000 MG in NA CHLORIDE 0.9% 50 ML IVPB SCH (08:34)
[2021-10-20] MEDS: THIAMINE 200 MG/2 ML INJ IVP SCH ×2 (08:34→20:30)
[2021-10-20] MEDS: LACTULOSE 20 GM/30 ML UCUP FT SCH ×2 (08:34→20:29)
[2021-10-20] MEDS: HEPARIN 5000 UNIT/ML 1 ML VIAL SQ SCH ×2 (08:35→20:29)
[2021-10-20] MEDS: FAMOTIDINE 20 MG/2 ML VIAL IV SCH ×2 (08:35→20:30)
--- NOTE | 2021-10-20 08:41 | P.PN ---
Subjective Date of Service: 10/20/21 Chief Complaint: Hepatic encephalopathy patient on a ventilator Subjective: Improving (Improving more responsive) Review of Systems is unable to be obtained Physical Examination - Vital Signs Temperature: 97.7 F Blood Pressure: 124/71 Pulse: 89 Respirations: 15 Pulse Ox (%): 100 - Physical Exam General: Other (Opening eyes to commands) Respiratory: Clear to auscultation bilaterally Cardiovascular: No edema, Regular rate/rhythm, Normal S1 S2 - Studies Microbiology Data (last 24 hrs): 10/17/21 16:50 Catheterized Urine [place] Count - Final No growth. 10/17/21 16:50 Catheterized Urine - Final No growth. Assessment And Plan - Current Problems (Diagnosis) (1) Respiratory failure Current Visit: Yes Status: Acute Qualifiers: Chronicity: acute (2) Hepatic encephalopathy Current Visit: Yes Status: Acute - Plan Patient admitted with hepatic encephalopathy secondary to cirrhosis of the liver currently improving plan to wean off and extubate today white count is elevated blood cultures so far negative normal left ventricular function hemodynamically stable on lactulose
[2021-10-20] MEDS ORDERED: CEFTRIAXONE 1,000 MG in NA CHLORIDE 0.9% 100 ML IV SCH (09:00)
[2021-10-20] MEDS ORDERED: POTASSIUM 25 MEQ EFFERV TAB FT ONE (09:26)
--- NOTE | 2021-10-20 10:03 | P.PN ---
Date of Service: 10/20/21 Vital Signs Temp Pulse Resp BP Pulse Ox 97.7 F 89 19 107/58 L 100 10/20/21 08:41 10/20/21 09:00 10/20/21 09:00 10/20/21 09:00 10/20/21 09:00 Medications Famotidine (Famotidine 20 Mg/2 Ml Vial) 20 mg IV BID [facility] Last Admin: 10/20/21 08:35 Dose: 20 mg Documented by: Fentanyl Citrate (Fentanyl Citr 100 Mcg/2 Ml) 25 mcg IV Q4HP PRN PRN Reason: Pain scale 8-10 (Severe) Heparin Sodium (Porcine) (Heparin 5000 Unit/Ml 1 Ml Vial) 5,000 unit SQ Q12HR [facility] Last Admin: 10/20/21 08:35 Dose: 5,000 unit Documented by: Sodium Chloride (Sodium Chloride) 250 mls @ 999 mls/hr IV Q15M PRN PRN Reason: HYPOTENSION Sodium Chloride (Sodium Chloride 0.45%) 1,000 mls @ 100 mls/hr IV .Q10H [facility] Last Admin: 10/20/21 06:05 Dose: 1,000 mls Documented by: Ceftriaxone Sodium 1,000 mg/ (Sodium Chloride) 50 mls @ 100 mls/hr IVPB DAILY [facility] Last Admin: 10/20/21 08:34 Dose: 50 mls Documented by: Lactulose (Lactulose 20 Gm/30 Ml Ucup) 20 gm FT BID [facility] Last Admin: 10/20/21 08:34 Dose: 20 gm Documented by: Ondansetron HCl (Ondansetron 4 Mg/2 Ml Vial) 4 mg IV Q6HP PRN PRN Reason: NAUSEA / VOMITING Sodium Chloride (Flush Normal Saline 10 Ml) 10 ml IV BID [facility] Last Admin: 10/20/21 08:35 Dose: 10 ml Documented by: Thiamine HCl (Thiamine 200 Mg/2 Ml Inj) 200 mg IVP BID [facility] Last Admin: 10/20/21 08:34 Dose: 200 mg Documented by: Microbiology Results 10/17/21 16:50 Catheterized Urine [place] Count - Final No growth. 10/17/21 16:50 Catheterized Urine - Final No growth. 10/17/21 16:40 Blood - Blood Aerobic Blood Culture - Preliminary No growth in 24 hours. 10/17/21 16:40 Blood - Blood Anaerobic Blood Culture - Preliminary No growth in 24 hours. 10/17/21 16:27 Blood - Blood Aerobic Blood Culture - Preliminary No growth in 24 hours. 10/17/21 16:27 Blood - Blood Anaerobic Blood Culture - Preliminary No growth in 24 hours. Assessment/ Plan: Nephrology Limited IH/ ROS due to intubation No acute events overnight Vitals, medications, blood work and imaging reviewed in the chart. General: Unresponsive HEENT: Atraumatic Neck: Supple Respiratory: Clear to auscultation bilaterally Cardiovascular: No edema, Regular rate/rhythm Gastrointestinal: Soft and benign, Non-distended, Other Musculoskeletal: No clubbing, No contractures Integumentary: No rashes, No cyanosis Greater than 30min patient care Laboratory Data (last 24 hrs) 10/17/21 17:40: PT 15.8 H, INR 1.43, APTT 34.8 10/17/21 16:51: Glucose Cancelled 10/17/21 16:27: Sodium 130 L, Potassium 4.8, BUN 28 H, Creatinine 2.00 H, Glucose 135 H, Magnesium 1.7 L, Total Bilirubin 2.3 H, AST 30, ALT 24, Alkaline Phosphatase 127 H Imagings Data: EXAM DESCRIPTION: US - Renal Ultrasound-Complete - 10/18/2021 3:38 am CLINICAL HISTORY: arf COMPARISON: Abdomen Pelvis W Contrast dated 03/23/2021; Chest Abd Pelvis Wo Con dated 10/17/2021 FINDINGS: The right kidney measures 8.8 cm. No hydronephrosis, focal mass or perinephric fluid. The left kidney was obscured by bowel gas. IMPRESSION: No right-sided hydronephrosis or abnormality identified. Left kidney obscured by bowel gas. No hydronephrosis was identified on the left kidney on yesterday's CT. EXAM DESCRIPTION: CT - Chest Abd Pelvis Wo Con - 10/17/2021 6:12 pm CLINICAL HISTORY: Unresponsive, hypotensive, elev. lactate/ammonia COMPARISON: Chest For Pe Angio dated 03/23/2021; Chest Single View dated 10/17/2021 TECHNIQUE: Axial 5 millimeter thick images of the chest, abdomen and pelvis were obtained without IV contrast. Oral contrast was administered. All CT scans are performed using dose optimization technique as appropriate and may include automated exposure control or mA/KV adjustment according to patient size. FINDINGS: The lungs are clear of mass and infiltrate. No pneumothorax or pleural effusion. No chest wall mass or abnormal axillary lymphadenopathy seen. Mediastinal and hilar regions show no mass or lymphadenopathy. No significant cardiac finding. Endotracheal tube is in place. Tip terminates at the mid aortic arch level approximately 4 cm above the ernst. NG tube has been placed. Tip is in the gastric body. The liver, spleen and pancreas show no focal findings for non contrast imaging. Liver capsule has a slightly nodular contour. Cirrhosis or diffuse hepatic parenchymal disease cannot be excluded. Several gallstones are seen. No biliary tree dilatation. Acute cholecystitis is unlikely. There is respiratory motion that precludes accurate assessment of the gallbladder jones. No hydronephrosis or suspicious renal mass. Isodense masses and pyelonephritis cannot be excluded on non contrast imaging. No adrenal abnormalities. Urinary bladder is fully contracted around a Vora catheter. Uterus is unremarkable. Atrophic ovaries are seen with no suspicious finding. Stomach is not dilated. Jones of the stomach appear thickened and nodular for the amount of intraluminal content. This is predominantly in the fundus and body of the stomach. A few prominent small bowel loops are present in the mid abdomen anteriorly. Large amount of stool is present dilating the rectum to 9 cm. Large stool volume distends the sigmoid colon. Right-side of the colon decompressed. Appendix is not clearly defined. An acute appendicitis is unlikely. No free air or pneumatosis. Scattered nonspecific mesenteric lymph nodes are present. No bulky lymphadenopathy. Patient has a large 18 centimeter diameter left mid abdomen hernia. The neck is 6 cm in diameter. The hernia contains fat and ascites. A right inferior umbilical hernia is present containing a portion of the right-side transverse colon. There is ascites within the hernia as well. The herniated bowel does not show wall thickening or acute edema. There is additional ascites present in the peritoneal cavity. No significant bone or vascular finding. Dense arterial tree calcifications are present. IVC filter is in place. IMPRESSION: No acute CT chest finding identified. Endotracheal tube and NG tube are well positioned. Several prominent small bowel loops are present in the mid abdomen. Acute bowel obstruction is not identified. Large amount of stool is present dilating the rectum to 9 cm. Stool distends the rectum. Cholelithiasis without additional findings to suspect acute cholecystitis. Multiple abdominal wall hernias mostly containing fat and ascites. Right lower quadrant hernia containing short segment of transverse colon with no acute colon component. Thickened nodular jones to the fundus and body of the stomach. Gastritis would be a possibility. Infiltrative gastric wall process cannot be excluded. CT abdomen and pelvis imaging shows no significant or suspicious finding. EXAM DESCRIPTION: RAD - Chest Single View - 10/17/2021 4:59 pm CLINICAL HISTORY: DYSPNEA COMPARISON: None TECHNIUE: AP portable chest image was obtained 10/17/2021 4:59 pm . FINDINGS: ET tube has been placed. Tip is mid aortic arch level 4 cm above the ernst. No focal mass or consolidation. No diffuse pulmonary edema. Interstitial markings are prominent. Left hemidiaphragm elevation noted. No reuben mass seen. Heart and vasculature are normal. No measurable pleural effusion and no pneumothorax. No acute bony abnormality seen. No acute aortic findings suspected. IMPRESSION: ET tube placement in good position 4 cm above the ernst. Conclusions/Impression: SRINIVASA may be due to hypovolemia. ATN? -Continue IVF 1/2NS Hyponatremia, resolved Hypokalemia -Replete potassium Hypomagnesemia -Replete with IV magnesium prn Severe malnutrition -Advance nutrition as tolerated -IV Albumin prn Hepatic encephalopathy Liver cirrhosis -Continue Lactulose -Continue Thiamine; add folic acid Acute respiratory failure -Intubated -Continue ventilatory support Case reviewed with Dr. Webb
[2021-10-20] MEDS: FOLIC ACID 1 MG in NA CHLORIDE 0.9% 50 ML IV SCH (11:56)
[2021-10-21] MEDS: NACHLORIDE 0.45% 1,000 ML IV SCH ×3 (01:46→23:34)
[2021-10-21 05:29] LABS: Absolute Lymphocytes (CBC) 3.9 K/uL (0.7-4.9); Hematocrit 32.6 % (36.0-45.0); Lymphocytes % 34.8 % (15.3-44.8); MPV 7.5 fL (7.6-11.3); RBC Red Blood Cell Count 3.18 M/uL (3.86-4.86)
[2021-10-21 05:48] LABS: Albumin 1.9 g/dL (3.4-5.0); Bilirubin Total 1.5 mg/dL (0.2-1.0); Potassium 3.7 mmol/L (3.5-5.1); Protein, Total 5.3 g/dL (6.4-8.2)
--- NOTE | 2021-10-21 06:24 | P.PN ---
Date of Service: 10/21/21 Subjective: extubated yesterday, slight confusion does not remember events leading to hospitalization generalized fatigue, slight sore throat ROS: 10 point ROS as noted above, otherwise negative Physical exam Gen: AOx2, NAD HEENT: PERRL, slight scleral icterus CV: regular rate/rhythm, no murmur Pulm: clear bilaterally, non-labored Abd: soft, multiple large abdominal wall hernias Neuro: moves extremities, follows commands Problem List Hepatic encephalopathy, h/o HCV cirrhosis Acute renal failure Lactic acidosis Gastric wall thickening Large ventral hernias #Hepatic encephalopathy, h/o HCV cirrhosis ammonia level improved mentation improved liver U/S completed: cirrhosis, biliary sludge extubated 10/20 continue lactulose, changed to BID on 10/19 continue ICU level of care today Neuro consulted, suspect secondary to hyperammonemia PT, ST consult #Acute renal failure: improving, Nephrology consulted continue gentle hydration check CPK, unknown how long patient was been down #Lactic acidosis: Doubt sepsis at this time, no identifiable source of infection noted. afebrile. Patient did receive 30 cc/kg fluid bolus in ER, is currently covered with piric antibioticsRocephin. Leukocytosis likely reactive, improving lactate improved #Gastric wall thickening/questionable history of gastric cancer: Noted on CT scan. review of OSH records does not mention h/o gastric cancer, possible ulcer/reflux #Large ventral hernias: No acute component noted on CT scan. DVT PPX: Heparin Code status: Full Dispo: will likely need SNF continue ICU, possible downgrade tomorrow Time Spent Managing Pts Care (In Minutes): 35
[2021-10-21] MEDS: THIAMINE 200 MG/2 ML INJ IVP SCH ×2 (09:55→20:18)
[2021-10-21] MEDS: HEPARIN 5000 UNIT/ML 1 ML VIAL SQ SCH ×2 (09:55→20:19)
[2021-10-21] MEDS: CEFTRIAXONE 1,000 MG in NA CHLORIDE 0.9% 50 ML IVPB SCH (09:55)
[2021-10-21] MEDS: FAMOTIDINE 20 MG/2 ML VIAL IV SCH ×2 (09:55→20:18)
[2021-10-21] MEDS: FOLIC ACID 1 MG in NA CHLORIDE 0.9% 50 ML IV SCH (09:55)
[2021-10-21] MEDS: LACTULOSE 20 GM/30 ML UCUP FT SCH ×2 (09:55→20:18)
--- NOTE | 2021-10-21 21:04 | P.PN ---
Date of Service: 10/21/21 Vital Signs Temp Pulse Resp BP Pulse Ox 97.8 F 82 20 99/67 94 10/21/21 16:00 10/21/21 18:00 10/21/21 18:00 10/21/21 18:00 10/20/21 20:00 Medications Famotidine (Famotidine 20 Mg/2 Ml Vial) 20 mg IV BID [facility] Last Admin: 10/21/21 20:18 Dose: 20 mg Documented by: Fentanyl Citrate (Fentanyl Citr 100 Mcg/2 Ml) 25 mcg IV Q4HP PRN PRN Reason: Pain scale 8-10 (Severe) Heparin Sodium (Porcine) (Heparin 5000 Unit/Ml 1 Ml Vial) 5,000 unit SQ Q12HR [facility] Last Admin: 10/21/21 20:19 Dose: 5,000 unit Documented by: Sodium Chloride (Sodium Chloride) 250 mls @ 999 mls/hr IV Q15M PRN PRN Reason: HYPOTENSION Sodium Chloride (Sodium Chloride 0.45%) 1,000 mls @ 100 mls/hr IV .Q10H [facility] Last Admin: 10/21/21 13:10 Dose: 1,000 mls Documented by: Ceftriaxone Sodium 1,000 mg/ (Sodium Chloride) 50 mls @ 100 mls/hr IVPB DAILY [facility] Last Admin: 10/21/21 09:55 Dose: 50 mls Documented by: Folic Acid 1 mg/ Sodium (Chloride) 50.2 mls @ 200 mls/hr IV DAILY [facility] Last Admin: 10/21/21 09:55 Dose: 50.2 mls Documented by: Lactulose (Lactulose 20 Gm/30 Ml Ucup) 20 gm FT BID [facility] Last Admin: 10/21/21 20:18 Dose: 20 gm Documented by: Ondansetron HCl (Ondansetron 4 Mg/2 Ml Vial) 4 mg IV Q6HP PRN PRN Reason: NAUSEA / VOMITING Sodium Chloride (Flush Normal Saline 10 Ml) 10 ml IV BID [facility] Last Admin: 10/21/21 20:19 Dose: 10 ml Documented by: Thiamine HCl (Thiamine 200 Mg/2 Ml Inj) 200 mg IVP BID [facility] Last Admin: 10/21/21 20:18 Dose: 200 mg Documented by: Microbiology Results 10/17/21 16:50 Catheterized Urine [place] Count - Final No growth. 10/17/21 16:50 Catheterized Urine - Final No growth. 10/17/21 16:40 Blood - Blood Aerobic Blood Culture - Preliminary No growth in 24 hours. 10/17/21 16:40 Blood - Blood Anaerobic Blood Culture - Preliminary No growth in 24 hours. 10/17/21 16:27 Blood - Blood Aerobic Blood Culture - Preliminary No growth in 24 hours. 10/17/21 16:27 Blood - Blood Anaerobic Blood Culture - Preliminary No growth in 24 hours. Assessment/ Plan: Nephrology Extubated yesterday Feeling better No dyspnea No chest pain No acute events overnight Vitals, medications, blood work and imaging reviewed in the chart. General: Unresponsive HEENT: Atraumatic Neck: Supple Respiratory: Clear to auscultation bilaterally Cardiovascular: No edema, Regular rate/rhythm Gastrointestinal: Soft and benign, Non-distended, Other Musculoskeletal: No clubbing, No contractures Integumentary: No rashes, No cyanosis Greater than 30min patient care Laboratory Data (last 24 hrs) 10/17/21 17:40: PT 15.8 H, INR 1.43, APTT 34.8 10/17/21 16:51: Glucose Cancelled 10/17/21 16:27: Sodium 130 L, Potassium 4.8, BUN 28 H, Creatinine 2.00 H, Glucose 135 H, Magnesium 1.7 L, Total Bilirubin 2.3 H, AST 30, ALT 24, Alkaline Phosphatase 127 H Imagings Data: EXAM DESCRIPTION: US - Renal Ultrasound-Complete - 10/18/2021 3:38 am CLINICAL HISTORY: arf COMPARISON: Abdomen Pelvis W Contrast dated 03/23/2021; Chest Abd Pelvis Wo Con dated 10/17/2021 FINDINGS: The right kidney measures 8.8 cm. No hydronephrosis, focal mass or perinephric fluid. The left kidney was obscured by bowel gas. IMPRESSION: No right-sided hydronephrosis or abnormality identified. Left kidney obscured by bowel gas. No hydronephrosis was identified on the left kidney on yesterday's CT. EXAM DESCRIPTION: CT - Chest Abd Pelvis Wo Con - 10/17/2021 6:12 pm CLINICAL HISTORY: Unresponsive, hypotensive, elev. lactate/ammonia COMPARISON: Chest For Pe Angio dated 03/23/2021; Chest Single View dated 10/18/19 TECHNIQUE: Axial 5 millimeter thick images of the chest, abdomen and pelvis were obtained without IV contrast. Oral contrast was administered. All CT scans are performed using dose optimization technique as appropriate and may include automated exposure control or mA/KV adjustment according to patient size. FINDINGS: The lungs are clear of mass and infiltrate. No pneumothorax or pleural effusion. No chest wall mass or abnormal axillary lymphadenopathy seen. Mediastinal and hilar regions show no mass or lymphadenopathy. No significant cardiac finding. Endotracheal tube is in place. Tip terminates at the mid aortic arch level approximately 4 cm above the ernst. NG tube has been placed. Tip is in the gastric body. The liver, spleen and pancreas show no focal findings for non contrast imaging. Liver capsule has a slightly nodular contour. Cirrhosis or diffuse hepatic parenchymal disease cannot be excluded. Several gallstones are seen. No biliary tree dilatation. Acute cholecystitis is unlikely. There is respiratory motion that precludes accurate assessment of the gallbladder jones. No hydronephrosis or suspicious renal mass. Isodense masses and pyelonephritis cannot be excluded on non contrast imaging. No adrenal abnormalities. Urinary bladder is fully contracted around a Vora catheter. Uterus is unremarkable. Atrophic ovaries are seen with no suspicious finding. Stomach is not dilated. Jones of the stomach appear thickened and nodular for the amount of intraluminal content. This is predominantly in the fundus and body of the stomach. A few prominent small bowel loops are present in the mid abdomen anteriorly. Large amount of stool is present dilating the rectum to 9 cm. Large stool volume distends the sigmoid colon. Right-side of the colon decompressed. Appendix is not clearly defined. An acute appendicitis is unlikely. No free air or pneumatosis. Scattered nonspecific mesenteric lymph nodes are present. No bulky lymphadenopathy. Patient has a large 18 centimeter diameter left mid abdomen hernia. The neck is 6 cm in diameter. The hernia contains fat and ascites. A right inferior umbilical hernia is present containing a portion of the right-side transverse colon. There is ascites within the hernia as well. The herniated bowel does not show wall thickening or acute edema. There is additional ascites present in the peritoneal cavity. No significant bone or vascular finding. Dense arterial tree calcifications are present. IVC filter is in place. IMPRESSION: No acute CT chest finding identified. Endotracheal tube and NG tube are well positioned. Several prominent small bowel loops are present in the mid abdomen. Acute bowel obstruction is not identified. Large amount of stool is present dilating the rectum to 9 cm. Stool distends the rectum. Cholelithiasis without additional findings to suspect acute cholecystitis. Multiple abdominal wall hernias mostly containing fat and ascites. Right lower quadrant hernia containing short segment of transverse colon with no acute colon component. Thickened nodular jones to the fundus and body of the stomach. Gastritis would be a possibility. Infiltrative gastric wall process cannot be excluded. CT abdomen and pelvis imaging shows no significant or suspicious finding. EXAM DESCRIPTION: RAD - Chest Single View - 10/17/2021 4:59 pm CLINICAL HISTORY: DYSPNEA COMPARISON: None TECHNIUE: AP portable chest image was obtained 10/17/2021 4:59 pm . FINDINGS: ET tube has been placed. Tip is mid aortic arch level 4 cm above the ernst. No focal mass or consolidation. No diffuse pulmonary edema. Interstitial markings are prominent. Left hemidiaphragm elevation noted. No reuben mass seen. Heart and vasculature are normal. No measurable pleural effusion and no pneumothorax. No acute bony abnormality seen. No acute aortic findings suspected. IMPRESSION: ET tube placement in good position 4 cm above the ernst. Conclusions/Impression: SRINIVASA may be due to hypovolemia. ATN? -Continue IVF 1/2NS Hyponatremia, resolved Hypokalemia -Replete potassium prn Hypomagnesemia -Replete with IV magnesium prn Severe malnutrition -Advance nutrition as tolerated -IV Albumin prn Hepatic encephalopathy Liver cirrhosis -Continue Lactulose -Continue Thiamine and Folic Acid Acute respiratory failure Extubated [id number] Case reviewed with Dr. Webb
--- NOTE | 2021-10-22 05:58 | P.PN ---
Date of Service: 10/22/21 Subjective: no acute events overnight improving tolerating PO slight confusion ROS: 10 point ROS as noted above, otherwise negative Physical exam Gen: AOx2, NAD HEENT: PERRL, normal conjunctiva CV: regular rate/rhythm, 1-2+ b/l edema Pulm: clear bilaterally, non-labored Abd: soft, multiple large abdominal wall hernias Neuro: moves extremities, follows commands Problem List Hepatic encephalopathy, h/o HCV cirrhosis Acute renal failure Lactic acidosis Gastric wall thickening Large ventral hernias #Hepatic encephalopathy, h/o HCV cirrhosis liver U/S completed: cirrhosis, biliary sludge ammonia level improved, mentation improving Neuro consulted, suspect secondary to hyperammonemia extubated 10/20 continue lactulose, changed to BID on 10/19, decreased to daily on 10/22, due to ongoing diarrhea PT, ST consult; diet advanced on 10/21 #Acute renal failure: improving; nephrology following decrease IVF, patient becoming more edematous, third-spacing, low albumin / cirrhosis balancing with renal function and low blood pressure #Lactic acidosis: Doubt sepsis, no identifiable source of infection noted. afebrile. Patient did receive 30 cc/kg fluid bolus in ER, cultures negative dc rocephin 10/22 Leukocytosis likely reactive, improved lactate improved #Gastric wall thickening Noted on CT scan. review of OSH records does not mention h/o gastric cancer, possible ulcer/reflux #Large ventral hernias: No acute component noted on CT scan. DVT PPX: Heparin Code status: Full Dispo: will likely need SNF continue ICU, possible downgrade tomorrow; monitor mentation and blood pressure Time Spent Managing Pts Care (In Minutes): 35
[2021-10-22 06:19] LABS: Hematocrit 32.4 % (36.0-45.0); MPV 7.5 fL (7.6-11.3); RBC Red Blood Cell Count 3.14 M/uL (3.86-4.86)
[2021-10-22] MEDS: THIAMINE 200 MG/2 ML INJ IVP SCH ×2 (09:14→21:04)
[2021-10-22] MEDS: FAMOTIDINE 20 MG/2 ML VIAL IV SCH (09:14)
[2021-10-22] MEDS: FOLIC ACID 1 MG in NA CHLORIDE 0.9% 50 ML IV SCH (09:14)
[2021-10-22] MEDS: LACTULOSE 20 GM/30 ML UCUP FT SCH (09:14)
[2021-10-22] MEDS: HEPARIN 5000 UNIT/ML 1 ML VIAL SQ SCH ×2 (09:14→21:04)
[2021-10-22] MEDS: CEFTRIAXONE 1,000 MG in NA CHLORIDE 0.9% 50 ML IVPB SCH (09:16)
[2021-10-22] MEDS ORDERED: NA CHLORIDE 0.9% 0 ML ONE (09:16)
[2021-10-22] MEDS: NACHLORIDE 0.45% 1,000 ML IV SCH ×3 (09:23→21:04)
[2021-10-22 10:05] LABS: Albumin 1.8 g/dL (3.4-5.0); Bilirubin Total 1.2 mg/dL (0.2-1.0); Protein, Total 5.1 g/dL (6.4-8.2)
--- NOTE | 2021-10-22 19:35 | PN ---
Date of Progress Note: 10/22/2021 Subjective: The patient was seen and examined at bedside. She is doing okay. She denies any compla ints. Physical Examination: Vital Signs: Have been reviewed and are stable. Blood pressure continues to be soft in the 90s rang e. General: She is alert, awake, and oriented x3. HEENT: Shows atraumatic head. Abdomen: The patient has a ventral hernia in the abdomen, but nontender and no rebound or guarding n oted. Extremities: Showed no evidence of edema. Laboratory Data: Showing creatinine improving to 1.58, sodium of 136, potassium of 4, and chloride o f 108. Bilirubin is also trending down. CBC showing platelet count to be stable. WBC count is impr oving and hemoglobin and hematocrit are also stable. Current Medications: Have been reviewed in detail. Impression: 1.Acute renal failure secondary to ATN, currently with improving renal function. 2.Hepatic encephalopathy, improving on lactulose. 3.Hyponatremia, resolved. 4.Underlying hepatitis C with cirrhosis leading to hepatic encephalopathy. Continue lactulose and t hiamine and folic acid. 5.Acute respiratory failure. The patient has been extubated and is doing well. Plan: Overall the patient's renal function is improving. Avoid further diuresis, hypotension and ne phrotoxins. Continue to monitor neurological status. Respiratory status is currently stable. Lactic acidosis is also improving. VV/MODL Voice ID: [id number] Report ID: [id number]
[2021-10-23 06:08] LABS: Hematocrit 30.2 % (36.0-45.0); MPV 7.1 fL (7.6-11.3); RBC Red Blood Cell Count 2.95 M/uL (3.86-4.86)
[2021-10-23 06:25] LABS: Albumin 1.8 g/dL (3.4-5.0); Bilirubin Total 1.3 mg/dL (0.2-1.0); Magnesium 1.9 mg/dL (1.8-2.4); Potassium 3.8 mmol/L (3.5-5.1)
--- NOTE | 2021-10-23 06:47 | P.PN ---
Date of Service: 10/23/21 Subjective: ROS: 10 point ROS as noted above, otherwise negative Physical exam Gen: AOx2, NAD HEENT: PERRL, normal conjunctiva CV: regular rate/rhythm, 1-2+ b/l edema Pulm: clear bilaterally, non-labored Abd: soft, multiple large abdominal wall hernias Neuro: moves extremities, follows commands Problem List Hepatic encephalopathy, h/o HCV cirrhosis Acute renal failure Lactic acidosis Gastric wall thickening Large ventral hernias #Hepatic encephalopathy, h/o HCV cirrhosis liver U/S completed: cirrhosis, biliary sludge ammonia level improved, mentation improving Neuro consulted, suspect secondary to hyperammonemia extubated 10/20 continue lactulose, changed to BID on 10/19, decreased to daily on 10/22, due to ongoing diarrhea PT, ST consult; diet advanced on 10/21 #Acute renal failure: improving; nephrology following decrease IVF, patient becoming more edematous, third-spacing, low albumin / cirrhosis balancing with renal function and low blood pressure #Lactic acidosis: Doubt sepsis, no identifiable source of infection noted. afebrile. Patient did receive 30 cc/kg fluid bolus in ER, cultures negative dc rocephin 10/22 Leukocytosis likely reactive, improved lactate improved #Gastric wall thickening Noted on CT scan. review of OSH records does not mention h/o gastric cancer, possible ulcer/reflux #Large ventral hernias: No acute component noted on CT scan. DVT PPX: Heparin Code status: Full Dispo: will likely need SNF continue ICU, possible downgrade tomorrow; monitor mentation and blood pressure Time Spent Managing Pts Care (In Minutes): 35
[2021-10-23] MEDS: HEPARIN 5000 UNIT/ML 1 ML VIAL SQ SCH (09:00)
[2021-10-23] MEDS ORDERED: FAMOTIDINE 20 MG/2 ML VIAL IV SCH (09:00)
--- NOTE | 2021-10-23 09:39 | P.PN ---
Subjective Date of Service: 10/23/21 Chief Complaint: Hepatic encephalopathy Subjective: Improving (Improving patient is doing well she is alert oriented responsive) Review of Systems Unremarkable Physical Examination - Vital Signs Temperature: 97 F Blood Pressure: 89/53 Pulse: 77 Respirations: 23 Pulse Ox (%): 98 - Physical Exam General: Alert, In no apparent distress, Oriented x3 Cardiovascular: No edema, Regular rate/rhythm - Studies Microbiology Data (last 24 hrs): 10/17/21 16:40 Blood - Blood Aerobic Blood Culture - Final No growth in 5 days. 10/17/21 16:40 Blood - Blood Anaerobic Blood Culture - Final No growth in 5 days. 10/17/21 16:27 Blood - Blood Aerobic Blood Culture - Final No growth in 5 days. 10/17/21 16:27 Blood - Blood Anaerobic Blood Culture - Final No growth in 5 days. Assessment And Plan - Current Problems (Diagnosis) (1) Hepatic encephalopathy Current Visit: Yes Status: Acute - Plan Admitted with hepatic encephalopathy doing well she is alert oriented responsive cooperative transferred to the floor remove the rectal tube continue with low- dose p.o. lactulose renal insufficiency low-dose IV fluids
[2021-10-23] MEDS: LACTULOSE 20 GM/30 ML UCUP PO SCH (09:47)
[2021-10-23] MEDS: FOLIC ACID 1 MG in NA CHLORIDE 0.9% 50 ML IV SCH (09:47)
[2021-10-23] MEDS: THIAMINE 200 MG/2 ML INJ IVP SCH (09:48)
[2021-10-23] MEDS: NACHLORIDE 0.45% 1,000 ML IV SCH (14:55)
[2021-10-23] MEDS ORDERED: POTASSIUM CL SA 10 MEQ TAB PO ONE (15:00)
[2021-10-23 16:30] LABS: HBsAG Nonreactive (Nonreactive)
[2021-10-24] MEDS ORDERED: SODIUM CHL 0.9% 1000 ML BAG IV ONE (02:14)
[2021-10-24] MEDS ORDERED: NA CHLORIDE 0.9% 500 ML IV ONE (02:20)
[2021-10-24] MEDS ORDERED: NA CHLORIDE 0.9% 500 ML ONE (02:31)
[2021-10-24] MEDS: NACHLORIDE 0.45% 1,000 ML IV SCH (03:09)
[2021-10-24 05:17] LABS: Hematocrit 29.3 % (36.0-45.0); MPV 7.1 fL (7.6-11.3); RBC Red Blood Cell Count 2.84 M/uL (3.86-4.86)
[2021-10-24] MEDS ORDERED: MAGNESIUM SULFATE 1 gm IVPB 1 GM/100 ML BAG IV ONE (06:19)
[2021-10-24] MEDS: LACTULOSE 20 GM/30 ML UCUP PO SCH (08:53)
--- NOTE | 2021-10-24 13:14 | P.PN ---
Subjective Date of Service: 10/24/21 Chief Complaint: Hepatic encephalopathy Patient is awake and interactive. Fecal management system discontinued. She has no new complaints. She is tolerating diet. Physical Examination - Vital Signs Temperature: 97.7 F Blood Pressure: 82/49 Pulse: 76 Respirations: 15 Pulse Ox (%): 95 Assessment And Plan - Plan Physical exam Gen: AOx3, NAD HEENT: PERRL, normal conjunctiva CV: regular rate/rhythm, 1-2+ b/l edema Pulm: clear bilaterally, non-labored Abd: soft, multiple large abdominal wall hernias Neuro: moves all extremities. Problem List Hepatic encephalopathy, h/o HCV cirrhosis Acute renal failure Lactic acidosis Gastric wall thickening Large ventral hernias Hepatic encephalopathy, h/o HCV cirrhosis liver U/S completed: cirrhosis, biliary sludge ammonia level improved, mentation significantly improved. Seen by neuro. extubated 10/20 continue lactulose. Was BID on 10/19, decreased to daily on 10/22, due to ongoing diarrhea Continue PT. Diet as tolerated. Acute renal failure: Resolved. Nephrology following Gastric wall thickening: Noted on CT scan. Stable Ventral hernias: Stable. Hypotension Patient with chronic hypotension likely secondary to liver cirrhosis. Midodrine. Discontinue IV fluid. DVT PPX: Heparin Code status: Full Dispo: will likely need SNF
[2021-10-24] MEDS: MIDODRINE HCL 5 MG TABLET PO SCH ×2 (14:20→21:28)
[2021-10-24 14:31] LABS: Hep C Virus RNA (PCR)log 5.16 log IU/mL
--- NOTE | 2021-10-24 16:48 | P.PN ---
Date of Service: 10/24/21 Vital Signs Temp Pulse Resp BP Pulse Ox 97.7 F 76 15 82/49 L 95 10/24/21 13:18 10/24/21 13:18 10/24/21 13:18 10/24/21 13:18 10/24/21 13:18 Medications Lactulose (Lactulose 20 Gm/30 Ml Ucup) 20 gm PO DAILY COUNTS INCLUDE 234 BEDS AT THE [facility] Last Admin: 10/24/21 08:53 Dose: 20 gm Documented by: Midodrine (Midodrine Hcl 5 Mg Tablet) 5 mg PO TID COUNTS INCLUDE 234 BEDS AT THE [facility] Last Admin: 10/24/21 14:20 Dose: 5 mg Documented by: Nutritional Formula (Ensure Enlive 237 Ml Can) 237 ml PO BID COUNTS INCLUDE 234 BEDS AT THE [facility] Microbiology Results 10/17/21 16:40 Blood - Blood Aerobic Blood Culture - Final No growth in 5 days. 10/17/21 16:40 Blood - Blood Anaerobic Blood Culture - Final No growth in 5 days. 10/17/21 16:27 Blood - Blood Aerobic Blood Culture - Final No growth in 5 days. 10/17/21 16:27 Blood - Blood Anaerobic Blood Culture - Final No growth in 5 days. 10/17/21 16:50 Catheterized Urine [place] Count - Final No growth. 10/17/21 16:50 Catheterized Urine - Final No growth. Assessment/ Plan: Nephrology Feeling better No dyspnea No chest pain No acute events overnight Vitals, medications, blood work and imaging reviewed in the chart. General: NAD. AAO. HEENT: Atraumatic Neck: Supple Respiratory: Clear to auscultation bilaterally Cardiovascular: No edema, Regular rate/rhythm Gastrointestinal: Soft and benign, Non-distended Musculoskeletal: No clubbing, No contractures Integumentary: No rashes, No cyanosis Laboratory Data (last 24 hrs) 10/17/21 17:40: PT 15.8 H, INR 1.43, APTT 34.8 10/17/21 16:51: Glucose Cancelled 10/17/21 16:27: Sodium 130 L, Potassium 4.8, BUN 28 H, Creatinine 2.00 H, G lucose 135 H, Magnesium 1.7 L, Total Bilirubin 2.3 H, AST 30, ALT 24, Alkaline Phosphatase 127 H Imagings Data: EXAM DESCRIPTION: US - Renal Ultrasound-Complete - 10/18/2021 3:38 am CLINICAL HISTORY: arf COMPARISON: Abdomen Pelvis W Contrast dated 03/23/2021; Chest Abd Pelvis Wo Con dated 10/17/2021 FINDINGS: The right kidney measures 8.8 cm. No hydronephrosis, focal mass or perinephric fluid. The left kidney was obscured by bowel gas. IMPRESSION: No right-sided hydronephrosis or abnormality identified. Left kidney obscured by bowel gas. No hydronephrosis was identified on the left kidney on yesterday's CT. EXAM DESCRIPTION: CT - Chest Abd Pelvis Wo Con - 10/17/2021 6:12 pm CLINICAL HISTORY: Unresponsive, hypotensive, elev. lactate/ammonia COMPARISON: Chest For Pe Angio dated 03/23/2021; Chest Single View dated 10/17/2021 TECHNIQUE: Axial 5 millimeter thick images of the chest, abdomen and pelvis were obtained without IV contrast. Oral contrast was administered. All CT scans are performed using dose optimization technique as appropriate and may include automated exposure control or mA/KV adjustment according to patient size. FINDINGS: The lungs are clear of mass and infiltrate. No pneumothorax or pleural effusion. No chest wall mass or abnormal axillary lymphadenopathy seen. Mediastinal and hilar regions show no mass or lymphadenopathy. No significant cardiac finding. Endotracheal tube is in place. Tip terminates at the mid aortic arch level approximately 4 cm above the ernst. NG tube has been placed. Tip is in the gastric body. The liver, spleen and pancreas show no focal findings for non contrast imaging. Liver capsule has a slightly nodular contour. Cirrhosis or diffuse hepatic parenchymal disease cannot be excluded. Several gallstones are seen. No biliary tree dilatation. Acute cholecystitis is unlikely. There is respiratory motion that precludes accurate assessment of the gallbladder jones. No hydronephrosis or suspicious renal mass. Isodense masses and pyelonephritis cannot be excluded on non contrast imaging. No adrenal abnormalities. Urinary bladder is fully contracted around a Vora catheter. Uterus is unremarkable. Atrophic ovaries are seen with no suspicious finding. Stomach is not dilated. Jones of the stomach appear thickened and nodular for the amount of intraluminal content. This is predominantly in the fundus and body of the stomach. A few prominent small bowel loops are present in the mid abdomen anteriorly. Large amount of stool is present dilating the rectum to 9 cm. Large stool volume distends the sigmoid colon. Right-side of the colon decompressed. Appendix is not clearly defined. An acute appendicitis is unlikely. No free air or pneumatosis. Scattered nonspecific mesenteric lymph nodes are present. No bulky lymphadenopathy. Patient has a large 18 centimeter diameter left mid abdomen hernia. The neck is 6 cm in diameter. The hernia contains fat and ascites. A right inferior umbilical hernia is present containing a portion of the right-side transverse colon. There is ascites within the hernia as well. The herniated bowel does not show wall thickening or acute edema. There is additional ascites present in the peritoneal cavity. No significant bone or vascular finding. Dense arterial tree calcifications are present. IVC filter is in place. IMPRESSION: No acute CT chest finding identified. Endotracheal tube and NG tube are well positioned. Several prominent small bowel loops are present in the mid abdomen. Acute bowel obstruction is not identified. Large amount of stool is present dilating the rectum to 9 cm. Stool distends the rectum. Cholelithiasis without additional findings to suspect acute cholecystitis. Multiple abdominal wall hernias mostly containing fat and ascites. Right lower quadrant hernia containing short segment of transverse colon with no acute colon component. Thickened nodular jones to the fundus and body of the stomach. Gastritis would be a possibility. Infiltrative gastric wall process cannot be excluded. CT abdomen and pelvis imaging shows no significant or suspicious finding. EXAM DESCRIPTION: RAD - Chest Single View - 10/17/2021 4:59 pm CLINICAL HISTORY: DYSPNEA COMPARISON: None TECHNIUE: AP portable chest image was obtained 10/17/2021 4:59 pm . FINDINGS: ET tube has been placed. Tip is mid aortic arch level 4 cm above the ernst. No focal mass or consolidation. No diffuse pulmonary edema. Interstitial markings are prominent. Left hemidiaphragm elevation noted. No reuben mass seen. Heart and vasculature are normal. No measurable pleural effusion and no pneumothorax. No acute bony abnormality seen. No acute aortic findings suspected. IMPRESSION: ET tube placement in good position 4 cm above the ernst. Conclusions/Impression: SRINIVASA may be due to hypovolemia. ATN? -No NSAIDs Hyponatremia, resolved Hypokalemia -Replete potassium prn Hypomagnesemia -Replete with IV magnesium prn Chronic hypotension -Continue Midodrine Severe malnutrition -Advance nutrition as tolerated -IV Albumin prn Hepatic encephalopathy Liver cirrhosis due to HCV -Continue Lactulose Acute respiratory failure Extubated [id number] Case reviewed with Dr. Self
[2021-10-24] MEDS: ENSURE ENLIVE 237 ML CAN PO SCH (21:30)
[2021-10-25 05:59] LABS: Magnesium 1.9 mg/dL (1.8-2.4); Potassium 3.7 mmol/L (3.5-5.1)
[2021-10-25] MEDS ORDERED: POTASSIUM 25 MEQ EFFERV TAB PO ONE (09:00)
[2021-10-25] MEDS: ENSURE ENLIVE 237 ML CAN PO SCH ×2 (09:00→20:28)
[2021-10-25] MEDS: LACTULOSE 20 GM/30 ML UCUP PO SCH (09:24)
[2021-10-25] MEDS: MIDODRINE HCL 5 MG TABLET PO SCH ×3 (09:24→20:28)
--- NOTE | 2021-10-25 10:13 | P.PN ---
Subjective Date of Service: 10/25/21 Chief Complaint: Hepatic encephalopathy Patient is awake and interactive. She has no new complaints She reports regular bowel movements. She is tolerating diet. Physical Examination - Vital Signs Temperature: 98.0 F Blood Pressure: 85/53 Pulse: 83 Respirations: 18 Pulse Ox (%): 97 Assessment And Plan - Plan Physical exam Gen: AOx3, NAD HEENT: PERRL, normal conjunctiva CV: regular rate/rhythm, 1-2+ b/l edema Pulm: clear bilaterally, non-labored Abd: soft, multiple large abdominal wall hernias Neuro: moves all extremities. Problem List Hepatic encephalopathy, h/o HCV cirrhosis Acute renal failure Lactic acidosis Gastric wall thickening Large ventral hernias Hepatic encephalopathy, h/o HCV cirrhosis liver U/S: cirrhosis, biliary sludge ammonia level improved, mentation significantly improved. Seen by neuro. extubated 10/20 continue current lactulose dose. Continue PT. Diet as tolerated. Acute renal failure: Resolved. Nephrology following Gastric wall thickening: Noted on CT scan. Stable Ventral hernias: Stable. Hypotension Patient with chronic hypotension likely secondary to liver cirrhosis. Midodrine. DVT PPX: Heparin Code status: Full Dispo: SNF.
--- NOTE | 2021-10-25 20:05 | P.PN ---
Date of Service: 10/25/21 Vital Signs Temp Pulse Resp BP Pulse Ox 97.6 F 75 18 96/55 L 98 10/25/21 16:28 10/25/21 16:28 10/25/21 16:28 10/25/21 16:28 10/25/21 16:28 Medications Lactulose (Lactulose 20 Gm/30 Ml Ucup) 20 gm PO DAILY [facility] Last Admin: 10/25/21 09:24 Dose: 20 gm Documented by: Midodrine (Midodrine Hcl 5 Mg Tablet) 5 mg PO TID [facility] Last Admin: 10/25/21 14:45 Dose: 5 mg Documented by: Nutritional Formula (Ensure Enlive 237 Ml Can) 237 ml PO BID [facility] Last Admin: 10/25/21 09:00 Dose: Not Given Documented by: Microbiology Results 10/17/21 16:40 Blood - Blood Aerobic Blood Culture - Final No growth in 5 days. 10/17/21 16:40 Blood - Blood Anaerobic Blood Culture - Final No growth in 5 days. 10/17/21 16:27 Blood - Blood Aerobic Blood Culture - Final No growth in 5 days. 10/17/21 16:27 Blood - Blood Anaerobic Blood Culture - Final No growth in 5 days. 10/17/21 16:50 Catheterized Urine [place] Count - Final No growth. 10/17/21 16:50 Catheterized Urine - Final No growth. Assessment/ Plan: Nephrology Feeling better No dyspnea No chest pain No acute events overnight Vitals, medications, blood work and imaging reviewed in the chart. General: NAD. AAO. HEENT: Atraumatic Neck: Supple Respiratory: Clear to auscultation bilaterally Cardiovascular: No edema, Regular rate/rhythm Gastrointestinal: Soft and benign, Non-distended Musculoskeletal: No clubbing, No contractures Integumentary: No rashes, No cyanosis Laboratory Data (last 24 hrs) 10/17/21 17:40: PT 15.8 H, INR 1.43, APTT 34.8 10/17/21 16:51: Glucose Cancelled 10/17/21 16:27: Sodium 130 L, Potassium 4.8, BUN 28 H, Creatinine 2.00 H, Glucose 135 H, Magnesium 1.7 L, Total Bilirubin 2.3 H, AST 30, ALT 24, Alkaline Phosphatase 127 H Imagings Data: EXAM DESCRIPTION: US - Renal Ultrasound-Complete - 10/18/2021 3:38 am CLINICAL HISTORY: arf COMPARISON: Abdomen Pelvis W Contrast dated 03/23/2021; Chest Abd Pelvis Wo Con dated 10/17/2021 FINDINGS: The right kidney measures 8.8 cm. No hydronephrosis, focal mass or perinephric fluid. The left kidney was obscured by bowel gas. IMPRESSION: No right-sided hydronephrosis or abnormality identified. Left kidney obscured by bowel gas. No hydronephrosis was identified on the left kidney on yesterday's CT. EXAM DESCRIPTION: CT - Chest Abd Pelvis Wo Con - 10/17/2021 6:12 pm CLINICAL HISTORY: Unresponsive, hypotensive, elev. lactate/ammonia COMPARISON: Chest For Pe Angio dated 03/23/2021; Chest Single View dated 10/17/2021 TECHNIQUE: Axial 5 millimeter thick images of the chest, abdomen and pelvis were obtained without IV contrast. Oral contrast was administered. All CT scans are performed using dose optimization technique as appropriate and may include automated exposure control or mA/KV adjustment according to patient size. FINDINGS: The lungs are clear of mass and infiltrate. No pneumothorax or pleural effusion. No chest wall mass or abnormal axillary lymphadenopathy seen. Mediastinal and hilar regions show no mass or lymphadenopathy. No significant cardiac finding. Endotracheal tube is in place. Tip terminates at the mid aortic arch level approximately 4 cm above the ernst. NG tube has been placed. Tip is in the gastric body. The liver, spleen and pancreas show no focal findings for non contrast imaging. Liver capsule has a slightly nodular contour. Cirrhosis or diffuse hepatic parenchymal disease cannot be excluded. Several gallstones are seen. No biliary tree dilatation. Acute cholecystitis is unlikely. There is respiratory motion that precludes accurate assessment of the gallbladder jones. No hydronephrosis or suspicious renal mass. Isodense masses and pyelonephritis cannot be excluded on non contrast imaging. No adrenal abnormalities. Urinary bladder is fully contracted around a Vora catheter. Uterus is unremarkable. Atrophic ovaries are seen with no suspicious finding. Stomach is not dilated. Jones of the stomach appear thickened and nodular for the amount of intraluminal content. This is predominantly in the fundus and body of the stomach. A few prominent small bowel loops are present in the mid abdomen anteriorly. Large amount of stool is present dilating the rectum to 9 cm. Large stool volume distends the sigmoid colon. Right-side of the colon decompressed. Appendix is not clearly defined. An acute appendicitis is unlikely. No free air or pneumatosis. Scattered nonspecific mesenteric lymph nodes are present. No bulky lymphadenopathy. Patient has a large 18 centimeter diameter left mid abdomen hernia. The neck is 6 cm in diameter. The hernia contains fat and ascites. A right inferior umbilical hernia is present containing a portion of the right-side transverse colon. There is ascites within the hernia as well. The herniated bowel does not show wall thickening or acute edema. There is additional ascites present in the peritoneal cavity. No significant bone or vascular finding. Dense arterial tree calcifications are present. IVC filter is in place. IMPRESSION: No acute CT chest finding identified. Endotracheal tube and NG tube are well positioned. Several prominent small bowel loops are present in the mid abdomen. Acute bowel obstruction is not identified. Large amount of stool is present dilating the rectum to 9 cm. Stool distends the rectum. Cholelithiasis without additional findings to suspect acute cholecystitis. Multiple abdominal wall hernias mostly containing fat and ascites. Right lower quadrant hernia containing short segment of transverse colon with no acute colon component. Thickened nodular jones to the fundus and body of the stomach. Gastritis would be a possibility. Infiltrative gastric wall process cannot be excluded. CT abdomen and pelvis imaging shows no significant or suspicious finding. EXAM DESCRIPTION: RAD - Chest Single View - 10/17/2021 4:59 pm CLINICAL HISTORY: DYSPNEA COMPARISON: None TECHNIUE: AP portable chest image was obtained 10/17/2021 4:59 pm . FINDINGS: ET tube has been placed. Tip is mid aortic arch level 4 cm above the ernst. No focal mass or consolidation. No diffuse pulmonary edema. Interstitial markings are prominent. Left hemidiaphragm elevation noted. No reuben mass seen. Heart and vasculature are normal. No measurable pleural effusion and no pneumothorax. No acute bony abnormality seen. No acute aortic findings martin pected. IMPRESSION: ET tube placement in good position 4 cm above the ernst. Conclusions/Impression: SRINIVASA may be due to hypovolemia. ATN? -No NSAIDs Hyponatremia, resolved Hypokalemia -Replete potassium Hypomagnesemia -Replete with IV magnesium prn Chronic hypotension -Continue Midodrine Severe malnutrition -Advance nutrition as tolerated -IV Albumin prn Hepatic encephalopathy Liver cirrhosis due to HCV -Continue Lactulose Acute respiratory failure Extubated [id number]
[2021-10-26 04:04] LABS: Absolute Lymphocytes (CBC) 2.5 K/uL (0.7-4.9); Hematocrit 29.7 % (36.0-45.0); Lymphocytes % 37.4 % (15.3-44.8); MPV 6.7 fL (7.6-11.3); RBC Red Blood Cell Count 2.88 M/uL (3.86-4.86)
[2021-10-26 04:19] LABS: BUN Blood Urea Nitrogen 17 mg/dL (7-18); Bicarbonate 24 mmol/L (21-32); Glucose Level 84 mg/dL (74-106); Potassium 3.9 mmol/L (3.5-5.1); Sodium Level 136 mmol/L (136-145)
[2021-10-26 04:28] VITALS: BMI 32.4
[2021-10-26] MEDS: ENSURE ENLIVE 237 ML CAN PO SCH ×2 (09:00→20:21)
[2021-10-26] MEDS ORDERED: POTASSIUM CL SA 10 MEQ TAB PO ONE (09:00)
[2021-10-26] MEDS: LACTULOSE 20 GM/30 ML UCUP PO SCH (11:04)
[2021-10-26] MEDS: MIDODRINE HCL 5 MG TABLET PO SCH ×3 (11:05→20:20)
--- NOTE | 2021-10-26 12:38 | P.PN ---
Subjective Date of Service: 10/26/21 Chief Complaint: Hepatic encephalopathy No new complaints. She has been awake and alert. She reports regular bowel movements. Physical Examination - Vital Signs Temperature: 98.2 F Blood Pressure: 97/55 Pulse: 80 Respirations: 18 Pulse Ox (%): 99 Assessment And Plan - Plan Physical exam Gen: AOx3, NAD HEENT: PERRL, normal conjunctiva CV: regular rate/rhythm, 1+ b/l edema Pulm: clear bilaterally, non-labored Abd: soft, multiple large abdominal wall hernias Neuro: moves all extremities. Problem List Hepatic encephalopathy, h/o HCV cirrhosis Acute renal failure Lactic acidosis Gastric wall thickening Large ventral hernias Hepatic encephalopathy, h/o HCV cirrhosis liver U/S: showed cirrhosis, biliary sludge ammonia level improved, AMS resolved. Seen by neuro. extubated 10/20 continue current lactulose dose. Continue PT. Diet as tolerated. Acute renal failure: Resolved. Nephrology following Gastric wall thickening: Noted on CT scan. Stable Ventral hernias: Stable. Hypotension Patient with chronic hypotension likely secondary to liver cirrhosis. Continue midodrine. DVT PPX: Heparin Code status: Full Dispo: Awaiting insurance authorization for SNF placement.
--- NOTE | 2021-10-26 12:54 | P.DS ---
Admission Date: 10/17/21 Discharge Date: 10/26/21 Disposition: TRANSFER TO JAIL Discharge Condition: FAIR Reason for Admission: Hepatic encephalopathy Brief History of Present Illness: 66-year-old female with unknown past medical history presented to the emergency department for AMS. Her neighbors reportedly called EMS for welfare check. Upon arrival patient was noted to be unresponsive/minimally responsive to pain only. Patient was evaluated in the emergency department she was intubated for airway protection given her mental status her labs were significant for acute renal failure significantly elevated ammonia level 349 mildly elevated troponin urine drug screen positive for THC. CT head brain without contrast negative for acute findings chest x-ray unremarkable CT chest abdomen pelvis without IV contrast did demonstrate multiple abdominal wall hernias mostly containing fat and ascites without any acute colon component thickened nodular jones of the fundus and body the stomach gastritis would be possibility infiltrative gastric wall process cannot be excluded. Patient was given lactulose in the emergency department through NG tube. Initial lactic acid also elevated, was 6.1 patient did receive 30 cc/kg IV fluid bolus in the ER, repeat lactate levels pending patient was covered with empiric antibioticRocephin. Patient admitted to ICU for further evaluation and management of suspected he patic encephalopathy. Hospital Course: Diagnosis Hepatic encephalopathy, h/o HCV cirrhosis Acute renal failure Lactic acidosis Gastric wall thickening Large ventral hernias Hepatic encephalopathy, h/o HCV cirrhosis liver U/S: showed cirrhosis, biliary sludge. Patient treated with lactulose ammonia level improved, AMS resolved. Seen by neuro. extubated 10/20 Received PT. She was alert and oriented, tolerated diet and participated in physical therapy. Acute renal failure: Resolved with IV hydration. Nephrology assisted with management. Gastric wall thickening: Noted on CT scan. Stable Ventral hernias: Stable. Hypotension Patient with chronic hypotension likely secondary to liver cirrhosis. Continued midodrine. Patient overall is clinically stable for discharge to skilled rehab. Vital Signs/Physical Exam: Temp Pulse Resp BP Pulse Ox 98.2 F 80 18 97/55 L 99 10/26/21 12:37 10/26/21 12:37 10/26/21 12:37 10/26/21 12:37 10/26/21 12:37 General: Alert, In no apparent distress, Oriented x3 HEENT: Mucous membr. moist/pink Neck: JVD not distended Respiratory: Clear to auscultation bilaterally, Normal air movement Cardiovascular: No edema, Regular rate/rhythm, Normal S1 S2 Gastrointestinal: Soft and benign, Non-distended, No tenderness Musculoskeletal: No swelling Integumentary: No rashes Neurological: Normal strength at 5/5 x4 extr Laboratory Data at Discharge: WBC 6.6 K/uL (4.3-10.9) 10/26/21 03:50 Hgb 10.3 g/dL (12.0-15.0) L 10/26/21 03:50 Hct 29.7 % (36.0-45.0) L 10/26/21 03:50 Plt Count 144 K/uL (152-406) L D 10/26/21 03:50 PT 15.8 SECONDS (9.5-12.5) H 10/17/21 17:40 INR 1.43 10/17/21 17:40 APTT 34.8 SECONDS (24.3-36.9) 10/17/21 17:40 Sodium 136 mmol/L (136-145) 10/26/21 03:50 Potassium 3.9 mmol/L (3.5-5.1) 10/26/21 03:50 BUN 17 mg/dL (7-18) 10/26/21 03:50 Creatinine 0.64 mg/dL (0.55-1.3) 10/26/21 03:50 Glucose 84 mg/dL (74-106) 10/26/21 03:50 Uric Acid 8.8 mg/dL (2.6-6.0) H 10/19/21 04:28 Phosphorus 5.1 mg/dL (2.5-4.9) H 10/19/21 04:28 Magnesium 1.9 mg/dL (1.8-2.4) 10/25/21 05:11 Total Bilirubin 1.3 mg/dL (0.2-1.0) H 10/23/21 05:50 AST 40 U/L (15-37) H 10/23/21 05:50 ALT 25 U/L (12-78) 10/23/21 05:50 Alkaline Phosphatase 94 U/L (45-117) 10/23/21 05:50 Triglycerides 76 mg/dL (<150) 10/18/21 04:36 Cholesterol 86 mg/dL (<200) 10/18/21 04:36 HDL Cholesterol 31 mg/dL (40-60) L 10/18/21 04:36 Cholesterol/HDL Ratio 2.77 10/18/21 04:36 Home Medications: Furosemide [Lasix] 20 mg PO DAILY 10/19/21 L.acidoph,Paracasei, B.lactis [Probiotic] 1 each PO DAILY 10/19/21 Spironolactone 50 mg PO BID 10/19/21 Ensure Enlive 237 ml PO BID can 10/26/21 Lactulose [Cephulac*] 33 ml PO DAILY ucup 10/26/21 Midodrine HCl [Proamatine*] 5 mg PO TID #0 tab 10/26/21 Diet: AHA Activity: Fall precautions Followup: NONE,NONE [Primary Care Provider] - Time spent managing pt's care (in minutes): 34
--- NOTE | 2021-10-26 19:58 | P.PN ---
Date of Service: 10/26/21 Vital Signs Temp Pulse Resp BP Pulse Ox 98.0 F 79 18 97/59 L 98 10/26/21 16:00 10/26/21 16:00 10/26/21 16:00 10/26/21 16:00 10/26/21 16:00 Medications Lactulose (Lactulose 20 Gm/30 Ml Ucup) 20 gm PO DAILY [facility] Last Admin: 10/26/21 11:04 Dose: 20 gm Documented by: Midodrine (Midodrine Hcl 5 Mg Tablet) 5 mg PO TID [facility] Last Admin: 10/26/21 15:10 Dose: 5 mg Documented by: Nutritional Formula (Ensure Enlive 237 Ml Can) 237 ml PO BID [facility] Last Admin: 10/26/21 09:00 Dose: Not Given Documented by: Microbiology Results 10/17/21 16:40 Blood - Blood Aerobic Blood Culture - Final No growth in 5 days. 10/17/21 16:40 Blood - Blood Anaerobic Blood Culture - Final No growth in 5 days. 10/17/21 16:27 Blood - Blood Aerobic Blood Culture - Final No growth in 5 days. 10/17/21 16:27 Blood - Blood Anaerobic Blood Culture - Final No growth in 5 days. 10/17/21 16:50 Catheterized Urine [place] Count - Final No growth. 10/17/21 16:50 Catheterized Urine - Final No growth. Assessment/ Plan: Nephrology Feeling better No dyspnea No chest pain No acute events overnight Vitals, medications, blood work and imaging reviewed in the chart. General: NAD. AAO. HEENT: Atraumatic Neck: Supple Respiratory: Clear to auscultation bilaterally Cardiovascular: No edema, Regular rate/rhythm Gastrointestinal: Soft and benign, Non-distended Musculoskeletal: No clubbing, No contractures Integumentary: No rashes, No cyanosis Laboratory Data (last 24 hrs) 10/17/21 17:40: PT 15.8 H, INR 1.43, APTT 34.8 10/17/21 16:51: Glucose Cancelled 10/17/21 16:27: Sodium 130 L, Potassium 4.8, BUN 28 H, Creatinine 2.00 H, Glucose 135 H, Magnesium 1.7 L, Total Bilirubin 2.3 H, AST 30, ALT 24, Alkaline Phosphatase 127 H Imagings Data: EXAM DESCRIPTION: US - Renal Ultrasound-Complete - 10/18/2021 3:38 am CLINICAL HISTORY: arf COMPARISON: Abdomen Pelvis W Contrast dated 03/23/2021; Chest Abd Pelvis Wo Con dated 10/17/2021 FINDINGS: The right kidney measures 8.8 cm. No hydronephrosis, focal mass or perinephric fluid. The left kidney was obscured by bowel gas. IMPRESSION: No right-sided hydronephrosis or abnormality identified. Left kidney obscured by bowel gas. No hydronephrosis was identified on the left kidney on yesterday's CT. EXAM DESCRIPTION: CT - Chest Abd Pelvis Wo Con - 10/17/2021 6:12 pm CLINICAL HISTORY: Unresponsive, hypotensive, elev. lactate/ammonia COMPARISON: Chest For Pe Angio dated 03/23/2021; Chest Single View dated 10/17/2021 TECHNIQUE: Axial 5 millimeter thick images of the chest, abdomen and pelvis were obtained without IV contrast. Oral contrast was administered. All CT scans are performed using dose optimization technique as appropriate and may include automated exposure control or mA/KV adjustment according to patient size. FINDINGS: The lungs are clear of mass and infiltrate. No pneumothorax or pleural effusion. No chest wall mass or abnormal axillary lymphadenopathy seen. Mediastinal and hilar regions show no mass or lymphadenopathy. No significant cardiac finding. Endotracheal tube is in place. Tip terminates at the mid aortic arch level approximately 4 cm above the ernst. NG tube has been placed. Tip is in the gastric body. The liver, spleen and pancreas show no focal findings for non contrast imaging. Liver capsule has a slightly nodular contour. Cirrhosis or diffuse hepatic parenchymal disease cannot be excluded. Several gallstones are seen. No biliary tree dilatation. Acute cholecystitis is unlikely. There is respiratory motion that precludes accurate assessment of the gallbladder jones. No hydronephrosis or suspicious renal mass. Isodense masses and pyelonephritis cannot be excluded on non contrast imaging. No adrenal abnormalities. Urinary bladder is fully contracted around a Vora catheter. Uterus is unremarkable. Atrophic ovaries are seen with no suspicious finding. Stomach is not dilated. Jones of the stomach appear thickened and nodular for the amount of intraluminal content. This is predominantly in the fundus and body of the stomach. A few prominent small bowel loops are present in the mid abdomen anteriorly. Large amount of stool is present dilating the rectum to 9 cm. Large stool volume distends the sigmoid colon. Right-side of the colon decompressed. Appendix is not clearly defined. An acute appendicitis is unlikely. No free air or pneumatosis. Scattered nonspecific mesenteric lymph nodes are present. No bulky lymphadenopathy. Patient has a large 18 centimeter diameter left mid abdomen hernia. The neck is 6 cm in diameter. The hernia contains fat and ascites. A right inferior umbilical hernia is present containing a portion of the right-side transverse colon. There is ascites within the hernia as well. The herniated bowel does not show wall thickening or acute edema. There is additional ascites present in the peritoneal cavity. No significant bone or vascular finding. Dense arterial tree calcifications are present. IVC filter is in place. IMPRESSION: No acute CT chest finding identified. Endotracheal tube and NG tube are well positioned. Several prominent small bowel loops are present in the mid abdomen. Acute bowel obstruction is not identified. Large amount of stool is present dilating the rectum to 9 cm. Stool distends the rectum. Cholelithiasis without additional findings to suspect acute cholecystitis. Multiple abdominal wall hernias mostly containing fat and ascites. Right lower quadrant hernia containing short segment of transverse colon with no acute colon component. Thickened nodular jones to the fundus and body of the stomach. Gastritis would be a possibility. Infiltrative gastric wall process cannot be excluded. CT abdomen and pelvis imaging shows no significant or suspicious finding. EXAM DESCRIPTION: RAD - Chest Single View - 10/17/2021 4:59 pm CLINICAL HISTORY: DYSPNEA COMPARISON: None TECHNIUE: AP portable chest image was obtained 10/17/2021 4:59 pm . FINDINGS: ET tube has been placed. Tip is mid aortic arch level 4 cm above the ernst. No focal mass or consolidation. No diffuse pulmonary edema. Interstitial markings are prominent. Left hemidiaphragm elevation noted. No reuben mass seen. Heart and vasculature are normal. No measurable pleural effusion and no pneumothorax. No acute bony abnormality seen. No acute aortic findings martin pected. IMPRESSION: ET tube placement in good position 4 cm above the ernst. Conclusions/Impression: SRINIVASA may be due to hypovolemia. ATN? -No NSAIDs Hyponatremia, resolved Hypokalemia -Replete potassium Hypomagnesemia -Replete with IV magnesium prn Chronic hypotension -Continue Midodrine Severe malnutrition -Advance nutrition as tolerated -IV Albumin prn Hepatic encephalopathy Liver cirrhosis due to HCV -Continue Lactulose Acute respiratory failure Extubated [id number]
[2021-10-27 07:47] LABS: Potassium 4.2 mmol/L (3.5-5.1)
[2021-10-27] MEDS: LACTULOSE 20 GM/30 ML UCUP PO SCH (08:26)
[2021-10-27] MEDS: MIDODRINE HCL 5 MG TABLET PO SCH ×3 (08:26→20:23)
[2021-10-27] MEDS: ENSURE ENLIVE 237 ML CAN PO SCH ×2 (08:26→20:23)
--- NOTE | 2021-10-27 10:41 | P.PN ---
Date of Service: 10/27/21 Vital Signs Temp Pulse Resp BP Pulse Ox 97.8 F 80 12 87/55 L 95 10/27/21 08:00 10/27/21 08:00 10/27/21 08:00 10/27/21 08:00 10/27/21 08:00 Medications Lactulose (Lactulose 20 Gm/30 Ml Ucup) 20 gm PO DAILY [facility] Last Admin: 10/27/21 08:26 Dose: 20 gm Documented by: Midodrine (Midodrine Hcl 5 Mg Tablet) 5 mg PO TID [facility] Last Admin: 10/27/21 08:26 Dose: 5 mg Documented by: Nutritional Formula (Ensure Enlive 237 Ml Can) 237 ml PO BID [facility] Last Admin: 10/27/21 08:26 Dose: Not Given Documented by: Microbiology Results 10/17/21 16:40 Blood - Blood Aerobic Blood Culture - Final No growth in 5 days. 10/17/21 16:40 Blood - Blood Anaerobic Blood Culture - Final No growth in 5 days. 10/17/21 16:27 Blood - Blood Aerobic Blood Culture - Final No growth in 5 days. 10/17/21 16:27 Blood - Blood Anaerobic Blood Culture - Final No growth in 5 days. 10/17/21 16:50 Catheterized Urine [place] Count - Final No growth. 10/17/21 16:50 Catheterized Urine - Final No growth. Assessment/ Plan: Nephrology Feeling better No dyspnea No chest pain No acute events overnight Vitals, medications, blood work and imaging reviewed in the chart. General: NAD. AAO. HEENT: Atraumatic Neck: Supple Respiratory: Clear to auscultation bilaterally Cardiovascular: No edema, Regular rate/rhythm Gastrointestinal: Soft and benign, Non-distended Musculoskeletal: No clubbing, No contractures Integumentary: No rashes, No cyanosis Laboratory Data (last 24 hrs) 10/17/21 17:40: PT 15.8 H, INR 1.43, APTT 34.8 10/17/21 16:51: Glucose Cancelled 10/17/21 16:27: Sodium 130 L, Potassium 4.8, BUN 28 H, Creatinine 2.00 H, Glucose 135 H, Magnesium 1.7 L, Total Bilirubin 2.3 H, AST 30, ALT 24, Alkaline Phosphatase 127 H Imagings Data: EXAM DESCRIPTION: US - Renal Ultrasound-Complete - 10/18/2021 3:38 am CLINICAL HISTORY: arf COMPARISON: Abdomen Pelvis W Contrast dated 03/23/2021; Chest Abd Pelvis Wo Con dated 10/17/2021 FINDINGS: The right kidney measures 8.8 cm. No hydronephrosis, focal mass or perinephric fluid. The left kidney was obscured by bowel gas. IMPRESSION: No right-sided hydronephrosis or abnormality identified. Left kidney obscured by bowel gas. No hydronephrosis was identified on the left kidney on yesterday's CT. EXAM DESCRIPTION: CT - Chest Abd Pelvis Wo Con - 10/17/2021 6:12 pm CLINICAL HISTORY: Unresponsive, hypotensive, elev. lactate/ammonia COMPARISON: Chest For Pe Angio dated 03/23/2021; Chest Single View dated 10/17/2021 TECHNIQUE: Axial 5 millimeter thick images of the chest, abdomen and pelvis were obtained without IV contrast. Oral contrast was administered. All CT scans are performed using dose optimization technique as appropriate and may include automated exposure control or mA/KV adjustment according to patient size. FINDINGS: The lungs are clear of mass and infiltrate. No pneumothorax or pleural effusion. No chest wall mass or abnormal axillary lymphadenopathy seen. Mediastinal and hilar regions show no mass or lymphadenopathy. No significant cardiac finding. Endotracheal tube is in place. Tip terminates at the mid aortic arch level approximately 4 cm above the ernst. NG tube has been placed. Tip is in the gastric body. The liver, spleen and pancreas show no focal findings for non contrast imaging. Liver capsule has a slightly nodular contour. Cirrhosis or diffuse hepatic parenchymal disease cannot be excluded. Several gallstones are seen. No biliary tree dilatation. Acute cholecystitis is unlikely. There is respiratory motion that precludes accurate assessment of the gallbladder jones. No hydronephrosis or suspicious renal mass. Isodense masses and pyelonephritis cannot be excluded on non contrast imaging. No adrenal abnormalities. Urinary bladder is fully contracted around a Vora catheter. Uterus is unremarkable. Atrophic ovaries are seen with no suspicious finding. Stomach is not dilated. Jones of the stomach appear thickened and nodular for the amount of intraluminal content. This is predominantly in the fundus and body of the stomach. A few prominent small bowel loops are present in the mid abdomen anteriorly. Large amount of stool is present dilating the rectum to 9 cm. Large stool volume distends the sigmoid colon. Right-side of the colon decompressed. Appendix is not clearly defined. An acute appendicitis is unlikely. No free air or pneumatosis. Scattered nonspecific mesenteric lymph nodes are present. No bulky lymphadenopathy. Patient has a large 18 centimeter diameter left mid abdomen hernia. The neck is 6 cm in diameter. The hernia contains fat and ascites. A right inferior umbilical hernia is present containing a portion of the right-side transverse colon. There is ascites within the hernia as well. The herniated bowel does not show wall thickening or acute edema. There is additional ascites present in the peritoneal cavity. No significant bone or vascular finding. Dense arterial tree calcifications are present. IVC filter is in place. IMPRESSION: No acute CT chest finding identified. Endotracheal tube and NG tube are well positioned. Several prominent small bowel loops are present in the mid abdomen. Acute bowel obstruction is not identified. Large amount of stool is present dilating the rectum to 9 cm. Stool distends the rectum. Cholelithiasis without additional findings to suspect acute cholecystitis. Multiple abdominal wall hernias mostly containing fat and ascites. Right lower quadrant hernia containing short segment of transverse colon with no acute colon component. Thickened nodular jones to the fundus and body of the stomach. Gastritis would be a possibility. Infiltrative gastric wall process cannot be excluded. CT abdomen and pelvis imaging shows no significant or suspicious finding. EXAM DESCRIPTION: RAD - Chest Single View - 10/17/2021 4:59 pm CLINICAL HISTORY: DYSPNEA COMPARISON: None TECHNIUE: AP portable chest image was obtained 10/17/2021 4:59 pm . FINDINGS: ET tube has been placed. Tip is mid aortic arch level 4 cm above the ernst. No focal mass or consolidation. No diffuse pulmonary edema. Interstitial markings are prominent. Left hemidiaphragm elevation noted. No reuben mass seen. Heart and vasculature are normal. No measurable pleural effusion and no pneumothorax. No acute bony abnormality seen. No acute aortic findings martin pected. IMPRESSION: ET tube placement in good position 4 cm above the ernst. Conclusions/Impression: SRINIVASA may be due to hypovolemia. ATN? 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
[2021-10-27] MEDS ORDERED: VITAMIN D 5,000 UNIT CAP PO SCH (11:00)
--- NOTE | 2021-10-27 14:44 | EEG ---
CHART: [id number] TEST ID#: [id number] DATE OF STUDY: 10/19/2021 THE EEG WAS RECORDED PORTBALE IN THE ICU ON A 14 CHANNEL MACHINE. ELECTRODES WERE APPLIED IN THE USUAL MANNER USING THE INTERNATIONAL 10-20 SYSTEM. THE WAKING BACKGROUND RHYTHM IN THIS RECORD CONSISTS OF POORLY DEVELOPED AND WELL ORGANIZED WAVES OF 2-3 HZ., IN A WIDE DISTRIBUTION WHICH DO NOT ATTENUATE NORMALLY WITH EYE OPENING. MODERATE VOTLAGE 1.5-3 HZ ACTIVITY IS EXPRESSED IN THE FRONTAL, CENTRAL, LATERAL AND TEMPORAL REGIONS. LOW-VOLTAGE 15-18 HZ IS EXPRESSED IN THE FRONTAL REGIONS. THERE ARE NO FOCAL OR LATERALIZING FEATURES. NO EPILEPTIFORM ACTIVITY APPEARS. SLEEP DID NOT OCCUR. HYPERVENTILATION WAS NOT PERFORMED. PHOTIC STIMULATION WAS NOT PERFORMED. IMPRESSION: THIS IS A MODERATELY TO SEVERELY ABNORMAL ROUTINE EEG DUE TO A MODERATELY TO SEVERELY SLOW BACKGROUND. THIS IS A NON-SPECIFIC FINDING CONSISTENT WITH A MODERATE TO SEVERE DIFFUSE DISTURBANCE IN CEREBRAL FUNCTION.
[2021-10-27 15:26] VITALS: O2SAT 95
[2021-10-27 20:51] VITALS: BP 92/51; TEMP 97.5
[2021-11-02 10:50] LABS: Urine Blood Negative (Negative); Urine Glucose Negative (Negative); Urine Protein Negative (Negative); Urine Specific Gravity 1.025 (1.005-1.030); Urine pH 5.5 (5.0-7.0)
== END 2021-10-27 21:29 | DRG 441 ==
LOC: ER 16:18 → ERHOLD 19:06 → 3RD-ICU 19:49 → 2ND 10-23 15:28
PROVIDERS: ADMIT Hospitalist; ATTEND Hospitalist
PROC: 0BH17EZ Insertion of Endotracheal Airway into Trachea, Via Natural or Artificial Opening (ICD-10-PCS; principal; 2021-10-17)
PROC: 5A1945Z Respiratory Ventilation, 24-96 Consecutive Hours (ICD-10-PCS; 2021-10-17)
DX: K72.01 Acute and subacute hepatic failure with coma (principal); E43 Unspecified severe protein-calorie malnutrition; J96.00 Acute respiratory failure, unspecified whether with hypoxia or hypercapnia; N17.0 Acute kidney failure with tubular necrosis; E87.2 Acidosis; E87.1 Hypo-osmolality and hyponatremia; B18.2 Chronic viral hepatitis C; K43.9 Ventral hernia without obstruction or gangrene; I95.9 Hypotension, unspecified; K74.60 Unspecified cirrhosis of liver; E87.6 Hypokalemia; E83.42 Hypomagnesemia; Z68.32 Body mass index [BMI] 32.0-32.9, adult; F12.90 Cannabis use, unspecified, uncomplicated; F17.210 Nicotine dependence, cigarettes, uncomplicated; Z20.822 Contact with and (suspected) exposure to COVID-19
CPT/HCPCS: 31500; 36415; 51702; 70450; 71045; 71250; 74176; 76705; 76770; 80048; 80053; 80061; 80074; 80307; 81003; 81015; 82140; 82550; 82570; 82805; 82947; 83605; 83735; 83880; 84100; 84132; 84145; 84156; 84300; 84439; 84443; 84484; 84550; 85025; 85027; 85610; 85730; 86140; 87040; 87086; 87088; 87522; 92610; 93005; 93306; 94002; 94003; 95816; 97110; 97116; 97161; 97530; 99291; 99292; J0330; J0696; J1644; J2543; J3411; J3475; J7030; J7040; U0003

== ENCOUNTER 2021-10-31 16:47 | Observation (INO) | payer OTHER ==
--- OUTSIDE RECORDS SUMMARY | 2021-10-31 16:50 | XMS REPORT | Continuity of Care Document ---
:[address] [facility] t Address [address] [place] [address] Care Team Providers Name Role Phone Jarod Miller MD Primary Care Physician Doctor Unassigned, Name Attending Clinician Unavailable Richard LYON, L Attending Clinician Payers Payer Name Policy Type Policy Number Effective Date Expiration Date S ource Problems Condition Condition Condition Status Onset Resolution Last Treating Co mments Source Name Details Category Date Date Treatment Clinician Date Abdominal Abdominal Disease Active Uni vers ascites ascites 3-03 ity of 00:00: [place] 00 [facility] Decompensa Decompensa Disease Active 2020-07 U nivers adriana adriana 0-13 ity of hepatic hepatic 00:00: [place] cirrhosis cirrhosis 00 [facility] Allergies, Adverse Reactions, Alerts This patient has no known allergies or adverse reactions. Social History Social Habit Start Date Stop Date Quantity Comments Source Exposure to Not sure [facility] SARS-CoV-2 (event) [facility] History of tobacco Cigarette Smoker University of use [facility] History [facility] University o f Alcohol Frequency [facility] History [facility] University o f Alcohol Std Drinks [facility] History [facility] University o f Alcohol Binge [facility] Alcohol intake 2021-09-26 2021-09-26 Ex-drinker University of 00:00:00 00:00:00 (finding) [facility] Cigarettes smoked 2021-05-04 2021-05-04 Univers ity of current (pack per 00:00:00 00:00:00 [facility] ) - Reported Branch Cigarette 2021-05-04 2021-05-04 University of pack-years 00:00:00 00:00:00 [facility] Tobacco use and 2021-05-04 2021-05-04 Never used Universit y of exposure 00:00:00 00:00:00 [facility] Alcohol Comment 2021-05-04 2021-05-04 stopped 1980 Univers ity of 00:00:00 00:00:00 [facility] Education 2021-05-04 2021-05-04 13 University of 00:00:00 00:00:00 [facility] Tobacco Comment 2021-05-04 2021-05-04 pack a day Universit y of 00:00:00 00:00:00 smoker quit 10 [place] Medi [facility] days ago Branch Sex [birth year] Universit y of 00:00:00 00:00:00 [facility] Smoking Status Start Date Stop Date Source Former smoker 2021-05-04 00:00:00 2021-05-04 00:00:00 Universi ty of [facility] Medications Ordered Filled Start Stop Current Ordering Indication Dosage Frequency Signature Comments Components Source Medication Medication Date Date Medication? Clinician (SIG) Name Name furosemide Yes [id number] 60mg Take 3 Univers 20 mg 3-08 tablets by ity of tablet 00:00: mouth [place] 00 daily. Medical Branch polyethylen Yes 1{packe Take 1 U nivers e glycol 3-07 t} Packet by ity of 3350 09:23: mouth as [place] (MIRALAX) 23 needed for Medi stephanie 17 gram Constipati Branch powder on. Lactobac Yes Take by Unive rs no.41/Bifid 3-07 mouth [place] obact [place].7 09:23[place] (PRO[place]- 23 Medical 10 ORAL) Branch polyethylen Yes 1{packe Take 1 U nivers e glycol 3-07 t} Packet by ity of 3350 09:23: mouth as [place] (MIRALAX) 23 needed for Medi stephanie 17 gram Constipati Branch powder on. Lactobac Yes Take by Unive rs no.41/Bifid 3-07 mouth [place] ity of obact no.7 09:23[place]PRO[place]- 23 Medical 10 ORAL) Branch vitamin Yes [id number] 1000ug Take 1 U nivers B-12 1,000 3-07 tablet by ity of mcg tablet 00:00: mouth [place] 00 daily. Medical Branch vitamin Yes [id number] 1000ug Take 1 U nivers B-12 1,000 3-07 tablet by ity of mcg tablet 00:00: mouth [place] 00 daily. Medical Branch spironolact Yes [id number] 150mg Take 1.5 Univers one 100 mg 3-04 tablets by ity of tablet 00:00: mouth [place] 00 daily. Medical Branch spironolact Yes [id number] 150mg Take 1.5 Univers one 100 mg 3-04 tablets by ity of tablet 00:00: mouth [place] 00 daily. Medical Branch furosemide [id number] 60mg Take 3 Univers 20 mg 3-04 03-08 tablets by ity of tablet 00:00: 00:00 mouth [place] 00 :00 daily. Medical Branch pantoprazol 2020-07 Yes [id number] 40mg Take 1 Univers e 40 mg EC 0-16 tablet by ity of tablet 00:00: mouth [place] 00 daily. Medical Branch pantoprazol 2020-07 Yes [id number] 40mg Take 1 Univers e 40 mg EC 0-16 tablet by ity of tablet 00:00: mouth [place] 00 daily. Medical Branch lactulose 2020-07 Yes [id number] 30mL Take 30 mL Univers 10 gram/15 0-15 by mouth 2 ity of mL solution 00:00: (two) [place] 00 times Medical daily. Branch lactulose 2020-07 Yes [id number] 30mL Take 30 mL Univers 10 gram/15 0-15 by mouth 2 ity of mL solution 00:00: (two) [place] 00 times Medical daily. Branch Procedures Procedure Date / Time Performed Performing Clinician [facility] e [facility] 485 2021-09-27 06:01:00 Doctor Unassigned, No [facility] [place] Name Medical Branch Encounters Start End Encounter Admission Attending Care Care Encounter Source Date/Time Date/Time Type Type Clinicians Facility Department ID 2021-09-27 2021-09-27 Orders Doctor REYES [id number] Univers 00:00:00 00:00:00 Only Unassigned, REYNA [id number] ity of [place] [facility] [id number] Rafa as [id number] [facility] 009 Branch 2021-09-26 2021-09-26 Patient Richard [facility] [id number] Univers 00:00:00 00:00:00 Outreach [facility] [id number] i ty of [place] [id number] Rafa as LARRY?BLEA [phone] [place] [facility] 044 Branch MEDICAL OFF[facility] Results This patient has no known results.
[2021-10-31 17:20] LABS: Urine Blood 2+ (Negative); Urine Glucose Negative (Negative); Urine Protein Negative (Negative); Urine Specific Gravity >=1.030 (1.005-1.030); Urine pH 5.5 (5.0-7.0)
[2021-10-31 17:22] LABS: Absolute Lymphocytes (CBC) 0.9 K/uL (0.7-4.9); Hematocrit 34.6 % (36.0-45.0); Lymphocytes % 8.8 % (15.3-44.8); MPV 7.9 fL (7.6-11.3); RBC Red Blood Cell Count 3.28 M/uL (3.86-4.86)
--- NOTE | 2021-10-31 18:12 | RAD REPORT ---
EXAM DESCRIPTION: RAD - Chest Single View - 10/31/2021 5:40 pm CLINICAL HISTORY: SOB Chest pain. COMPARISON: Chest Single View dated 10/19/2021; Chest Single View dated 10/18/2021; Chest Single View dated 10/17/2021 FINDINGS: Portable technique limits examination quality. Mild pulmonary edema with small pleural effusions suspected. The heart is mildly prominent in size. N o displaced fractures. IMPRESSION: Mild CHF versus volume overload pattern.
--- NOTE | 2021-10-31 18:16 | RAD REPORT ---
EXAM DESCRIPTION: US - Extrem Venous W Compress Tanvir - 10/31/2021 6:07 pm CLINICAL HISTORY: SWELLING Bilateral leg edema and swelling. COMPARISON: No comparisons TECHNIQUE: Real-time sonographic interrogation of the left and right lower extremity deep venous sys tems was performed. FINDINGS: Normal compressibility, flow augmentation, phasic flow and spontaneous flow is identified in both the left and right lower extremity deep venous systems. IMPRESSION: No sonographic evidence of left or right lower extremity deep venous thrombosis.
[2021-10-31 19:10] LABS: SARS-COV-2 RT PCR NEGATIVE (NEGATIVE)
[2021-10-31 19:18] LABS: Platelet Estimate ADEQ; White Blood Cell Scan OK (OK)
[2021-10-31 19:19] LABS: Anisocytosis 1+; Blood Morphology Comment NOTED (NOT SEEN); Macrocytosis 1+
--- NOTE | 2021-10-31 19:33 | ER ---
Nurse's Notes [facility] Name: Miroslava Means Age: 66 yrs Sex: Female : 1955 Arrival Date: 10/31/2021 Time: 16:59 Bed 4 Private MD: Diagnosis: Hypomagnesemia;Ventral hernia without obstruction or gangrene;Unspecified cirrhosis of liver Presentation: 10/31 16:40 Chief complaint: EMS states: Patient sent over from [facility] due to jg9 reports of SOB, Abdominal ascites, abdominal pain and an unwitnessed fall this morning with unknown injury. Coronavirus screen: Vaccine status: Patient reports being unvaccinated. Ebola Screen: Patient negative for fever greater than or equal to 101.5 degrees Fahrenheit, and additional compatible Ebola Virus Disease symptoms Patient denies exposure to infectious person. Patient denies travel to an Ebola-affected area in the 21 days before illness onset. Initial Sepsis Screen: Does the patient meet any 2 criteria? No. Patient's initial sepsis screen is negative. Does the patient have a suspected source of infection? No. Patient's initial sepsis screen is negative. Risk Assessment: Do you want to hurt yourself or someone else? Patient reports no desire to harm self or others. Onset of symptoms is unknown. 16:40 Method Of Arrival: EMS: [facility] 9 16:40 Acuity: LETHA 3 jg9 Triage Assessment: 16:40 General: Appears in no apparent distress. Behavior is calm, cooperative. Pain: Denies j9 pain. Respiratory: Reports some tightness in the abdomen Onset: The symptoms/episode began/occurred at an unknown time. the patient has mild shortness of breath. Historical: - Allergies: 17:19 No Known Allergies; jg9 - Home Meds: 17:19 cholecalciferol (vitamin D3) 125 mcg (5,000 unit) oral cap daily [Active]; furosemide jg9 20 mg Oral tab once daily [Active]; lactobacillus capsule daily [Active]; lactulose 20 gram/30 mL Oral soln 30 mL once daily [Active]; midodrine 5 mg oral tab 3 times per day [Active]; spironolactone 50 mg Oral tab 1 tab 2 times per day [Active]; - PMHx: 17:19 stomach CA; protein-calorie malnurition; hypomagnesium; chronic respiratory failure; jg9 vitamin D deficiency; hepatic failure, chronic \T\ acute; acute kidney failure; ventral hernia; acidosis; gastric varices; hypotension; hypokalemia; - Immunization history:: Client reports having NOT received the Covid vaccine. Pneumococcal vaccine is up to date, Flu vaccine is up to date. - Social history:: Smoking status: Patient/guardian denies using tobacco, Stopped _ months ago 1. Screenin:30 Abuse screen: Denies threats or abuse. Denies injuries from another. Nutritional jg9 screening: No deficits noted. Tuberculosis screening: No symptoms or risk factors identified. Fall Risk Fall in past 12 months (25 points). Assessment: 16:40 Cardiovascular: Rhythm is sinus rhythm. Respiratory: Airway Respiratory effort is even, jg9 unlabored, Breath sounds are clear bilaterally. 18:35 Reassessment: lab called to come draw patient-multiple unsuccessful attempts in ED. jg9 19:29 Reassessment: lab called to come draw labs on patient. al4 19:55 General: Appears in no apparent distress. comfortable, Behavior is calm, cooperative. al4 Pain: Denies pain. Neuro: Level of Consciousness is awake, alert, obeys commands, Oriented to person, place, situation. Cardiovascular: Capillary refill < 3 seconds Patient's skin is warm and dry. Respiratory: Airway is patent Respiratory effort is unlabored. 20:26 GI: Abdomen is distended, Abd is non tender X 4 quads. Derm: Skin is intact, Skin al4 temperature is warm. 20:28 Reassessment: TIM Benoit gave verbal orders that patient is to stay in the ED until labs al4 and CT results are resulted in the EMR. 20:48 Reassessment: Patient appears in no apparent distress at this time. Patient talking on al4 her cell phone. Speech Clear. 21:57 Reassessment: Reassessment: Patient appears in no apparent distress at this time. al4 Patient is alert, oriented x 3, equal unlabored respirations, skin warm/dry/pink. Patient denies pain at this time. 22:05 Reassessment: Called second floor and spoke to Annette to request midodrine 5mg be al4 sent down to ED. Med is not in ED pyxis. 22:57 Reassessment: Patient appears in no apparent distress at this time. Patient is alert, al4 oriented x 3, equal unlabored respirations, skin warm/dry/pink. Patient denies pain at this time. 11/01 00:00 Reassessment: Patient appears in no apparent distress at this time. Patient is alert, al4 oriented x 3, equal unlabored respirations, skin warm/dry/pink. 01:30 Reassessment: Patient appears in no apparent distress at this time. Patient is alert, al4 oriented x 3, equal unlabored respirations, skin warm/dry/pink. Patient denies pain at this time. Vital Signs: 10/31 16:40 BP 105 / 72; Pulse 108; Resp 20 S; Temp 97.5(A); Pulse Ox 97% on R/A; Weight 85.[address] [facility] (R); Height 5 ft. 6 in. (167.64 cm) (R); Pain 0/10; 17:30 BP 90 / 59; Pulse 87; Resp 20 S; Pulse Ox 94% on R/A; jg9 18:00 BP 109 / 56; Pulse 91; Resp 22 S; Pulse Ox 98% on R/A; jg9 18:30 BP 93 / 55; Pulse 91; Resp 17 S; Pulse Ox 95% on R/A; jg9 20:20 BP 119 / 81; Pulse 98; Resp 22; Pulse Ox 93% on R/A; Pain 0/10; al4 21:00 BP 105 / 80; Pulse 92; Resp 24; Pulse Ox 96% on R/A; Pain 0/10; al4 21:50 BP 80 / 50; Pulse 91; Resp 26; Pulse Ox 96% ; Pain 0/10; al4 22:30 BP 103 / 70; Pulse 95; Resp 22; Pulse Ox 91% on R/A; Pain 0/10; al4 23:00 BP 104 / 65; Pulse 93; Resp 22 S; Pulse Ox 94% on R/A; Pain 0/10; al4 11/01 00:10 BP 76 / 58; Pulse 93; Resp 27 S; Pulse Ox 94% on R/A; Pain 0/10; al4 01:00 BP 97 / 68; Pulse 88; Resp 20 S; Pulse Ox 92% on R/A; Pain 0/10; al4 02:20 BP 105 / 65; Pulse 87; Resp 22 S; Pulse Ox 90% on R/A; Pain 0/10; al4 10/31 16:40 Body Mass Index 30.34 (85.28 kg, 167.64 cm) jg9 10/31 21:50 DIRECTOR PRODUCT MANAGEMENT Cy aware of BP al4 ED Course: 16:59 Patient arrived in ED. aa5 17:00 Pa Sen PA is PHCP. cp 17:00 Michael Webb MD is Attending Physician. cp 17:05 Inserted saline lock: 22 gauge in left antecubital area, using aseptic technique. Blood jg9 collected. 17:19 Triage completed. jg9 17:30 Arm band placed on right wrist. jg9 17:30 Patient has correct armband on for positive identification. Bed in low position. Call jg9 light in reach. Side rails up X 1. 17:43 XRAY Chest (1 view) In Process Unspecified. EDMS 18:00 Inserted saline lock: 22 gauge in right wrist, using aseptic technique. jg9 18:09 US Extremity Venous W Compression Tanvir In Process Unspecified. EDMS 19:30 Cy Mina is Hospitalizing Provider. cp 19:35 Chay Kwon MD is Hospitalizing Provider. cp 19:48 Hospitalizing Provider role handed off by Chay Kwon MD la1 19:48 Jamarcus Webb MD is Hospitalizing Provider. la1 20:26 Glen Garcia is Primary Nurse. al4 20:28 bus driver/monitor on. Pulse ox on. NIBP on. Warm blanket given. Repositioned patient. al4 Cleaned of incontinence. 23:21 Repositioned patient. Cleaned of incontinence. al4 11/01 01:26 Matthew Ba MD is Referral Physician. cp 01:32 No provider procedures requiring assistance completed. al4 02:07 IV discontinued, intact, bleeding controlled, No redness/swelling at site. Pressure al4 dressing applied. Administered Medications: 10/31 22:57 Drug: Tessalon Perle (benzonatate) 100 mg Route: PO; al4 23:30 Follow up: Response: No adverse reaction al4 22:57 Drug: midodrine 5 mg Route: PO; al4 23:30 Follow up: Response: No adverse reaction al4 22:57 Drug: Magnesium Sulfate 2 grams Route: IVPB; Infused Over: 2 hrs; Site: left upper arm; al4 11/01 00:55 Follow up: Response: No adverse reaction; IV Status: Completed infusion; IV Intake: [id number] Intake: 00:55 IV: 50ml; Total: 50ml. al4 Outcome: 10/31 19:33 Decision to Hospitalize by Provider. cp 11/01 01:27 Discharge ordered by MD. cp 02:07 Discharged to custodial. Report called to Dione stover 02:07 Condition: stable 02:07 Discharge instructions given to patient, Instructed on discharge instructions, follow up and referral plans. Demonstrated understanding of instructions, follow-up care. 02:22 Patient left the ED. al4 Signatures: Dispatcher [employer] EDAK Tabitha Casas RN RN aa5 Cy Mina, FOAM CASTER-C FOAM CASTER-Cla1 Pa Sen PA PA cp Ledbetter, Alexis al4 Janay Rodriguez RN RN jg9 Corrections: (The following items were deleted from the chart) 10/31 17:28 17:19 Allergies: Unable to obtain [Inactive]; jg9 jg9 20:27 19:55 Neuro: Level of Consciousness is awake, alert, Oriented to person, place, al4 situation, al4 22:06 22:05 Reassessment: Called second floor and spoke to Annette to request mididrone be al4 sent down to ED. Med is not in ED pyxis. al4
--- NOTE | 2021-10-31 19:34 | EDPHYS ---
Physician Documentation [facility] Name: Miroslava Means Age: 66 yrs Sex: Female : 1955 Arrival Date: 10/31/2021 Time: 16:59 Bed 4 Private MD: ED Physician Michael Webb HPI: 10/31 17:10 This 66 yrs old Female presents to ER via EMS with complaints of Shortness Of Breath, cp Abdominal Swelling. 17:10 The patient has shortness of breath with light activity. cp 17:10 Onset: The symptoms/episode began/occurred gradually. Duration: The symptoms are cp continuous, and are steadily getting worse. Associated signs and symptoms: Pertinent positives: abdominal distension, Pertinent negatives: chest pain, productive cough, diaphoresis, dizziness, fever, vomiting. Severity of symptoms: in the emergency department the symptoms are unchanged despite home interventions. Historical: - Allergies: 17:19 No Known Allergies; jg9 - Home Meds: 17:19 cholecalciferol (vitamin D3) 125 mcg (5,000 unit) oral cap daily [Active]; furosemide jg9 20 mg Oral tab once daily [Active]; lactobacillus capsule daily [Active]; lactulose 20 gram/30 mL Oral soln 30 mL once daily [Active]; midodrine 5 mg oral tab 3 times per day [Active]; spironolactone 50 mg Oral tab 1 tab 2 times per day [Active]; - PMHx: 17:19 stomach CA; protein-calorie malnurition; hypomagnesium; chronic respiratory failure; jg9 vitamin D deficiency; hepatic failure, chronic \\T\\ acute; acute kidney failure; ventral hernia; acidosis; gastric varices; hypotension; hypokalemia; - Immunization history:: Client reports having NOT received the Covid vaccine. Pneumococcal vaccine is up to date, Flu vaccine is up to date. - Social history:: Smoking status: Patient/guardian denies using tobacco, Stopped _ months ago 1. ROS: 17:15 Constitutional: Negative for body aches, chills, fever, poor PO intake. cp 17:15 Eyes: Negative for injury, pain, redness, and discharge. cp 17:15 Cardiovascular: Positive for edema, Negative for chest pain, palpitations. 17:15 Respiratory: Positive for shortness of breath, Negative for cough, wheezing. 17:15 Abdomen/GI: Positive for abdominal distension, Negative for vomiting, diarrhea, constipation, black/tarry stool, rectal bleeding. 17:15 : Negative for urinary symptoms. 17:15 Neuro: Negative for altered mental status, dizziness, headache, weakness. 17:15 All other systems are negative. Exam: 17:17 ECG was reviewed by the Attending Physician. cp 17:20 Constitutional: The patient appears in no acute distress, alert, awake, cp non-diaphoretic, non-toxic, well developed, well nourished. 17:20 Head/Face: Normocephalic, atraumatic. cp 17:20 Eyes: Periorbital structures: appear normal, Conjunctiva: normal, no exudate, no injection, Sclera: no appreciated abnormality, Lids and lashes: appear normal, bilaterally. 17:20 ENT: External ear(s): are unremarkable, Nose: is normal, Mouth: Lips: moist, Oral mucosa: moist, Posterior pharynx: Airway: no evidence of obstruction, patent. 17:20 Neck: ROM/movement: is normal, is supple, without pain, no range of motions limitations. 17:20 Chest/axilla: Inspection: normal, Palpation: is normal, no crepitus, no tenderness. 17:20 Cardiovascular: Rate: tachycardic, Rhythm: regular, Edema: ankle edema, that is mild, JVD: is not appreciated. 17:20 Respiratory: the patient does not display signs of respiratory distress, Respirations: labored breathing, is not present, shallow respirations, are not present, Breath sounds: bronchial sounds, that are mild, bibasilar, decreased breath sounds, are not appreciated, stridor, is not appreciated, wheezing: is not appreciated. 17:20 Abdomen/GI: Inspection: distension, that is moderate, Bowel sounds: active, all quadrants, Palpation: abdomen is soft and non-tender, in all quadrants, Hernia: noted in the paraumbilical area and umbilical area, incarceration, is not appreciated, tenderness, is not appreciated. 17:20 Back: pain, is absent, ROM is normal. 17:20 Skin: cellulitis, is not appreciated, no rash present. 17:20 Neuro: Orientation: to person, place \\T\\ time. Mentation: is normal, Motor: moves all fours, strength is normal, Sensation: no obvious gross deficits. Vital Signs: 16:40 BP 105 / 72; Pulse 108; Resp 20 S; Temp 97.5(A); Pulse Ox 97% on R/A; Weight 85.28 kg 9 (R); Height 5 ft. 6 in. (167.64 cm) (R); Pain 0/10; 17:30 BP 90 / 59; Pulse 87; Resp 20 S; Pulse Ox 94% on R/A; jg9 18:00 BP 109 / 56; Pulse 91; Resp 22 S; Pulse Ox 98% on R/A; jg9 18:30 BP 93 / 55; Pulse 91; Resp 17 S; Pulse Ox 95% on R/A; jg9 20:20 BP 119 / 81; Pulse 98; Resp 22; Pulse Ox 93% on R/A; Pain 0/10; al4 21:00 BP 105 / 80; Pulse 92; Resp 24; Pulse Ox 96% on R/A; Pain 0/10; al4 21:50 BP 80 / 50; Pulse 91; Resp 26; Pulse Ox 96% ; Pain 0/10; al4 22:30 BP 103 / 70; Pulse 95; Resp 22; Pulse Ox 91% on R/A; Pain 0/10; al4 23:00 BP 104 / 65; Pulse 93; Resp 22 S; Pulse Ox 94% on R/A; Pain 0/10; al4 0412 00:10 BP 76 / 58; Pulse 93; Resp 27 S; Pulse Ox 94% on R/A; Pain 0/10; al4 01:00 BP 97 / 68; Pulse 88; Resp 20 S; Pulse Ox 92% on R/A; Pain 0/10; al4 02:20 BP 105 / 65; Pulse 87; Resp 22 S; Pulse Ox 90% on R/A; Pain 0/10; al4 10/31 16:40 Body Mass Index 30.34 (85.28 kg, 167.64 cm) [facility] [place] [place] 10/31 21:50 QUALITY NURSE Cy aware of BP al4 MDM: 17:02 Patient medically screened. cp 18:20 Physician consultation: Cy Mina was contacted at 18:20, in the emergency department cp to see patient at 18:20. 19:30 Data reviewed: vital signs, nurses notes, lab test result(s), EKG, radiologic studies, plain films, ultrasound. 23:00 Physician consultation: Cy Leopoldo was contacted at 22:45, regarding admission, to the telemetry unit. patient's condition, sees patient in ED and recommends discharge to home after replacement of magnesium. 10/31 17:02 Order name: Basic Metabolic Panel; Complete Time: 22:39 cp 10/31 22:39 Interpretation: Normal except: NA 134; GFR 41; CA 7.9. 10/31 17:02 Order name: CBC with Diff; Complete Time: 19:20 cp 10/31 18:00 Interpretation: Normal except: RBC 3.28; HGB 11.9; HCT 34.6; MCV 105.4; MCH 36.1; RDW cp 20.8; MPV 7.9; JOHANNE% 83.6; LYM% 8.8; NEUT A 8.1. 10/31 17:02 Order name: LFT's; Complete Time: 22:39 10/31 22:40 Interpretation: Normal except: AST 65; BILIT 3.9; BILID 3.0; TP 5.4; ALB 1.6; GLOB 3.8; cp A/G 0.4. 10/31 17:02 Order name: Magnesium; Complete Time: 22:39 cp 10/31 17:02 Order name: NT PRO-BNP; Complete Time: 22:39 cp 10/31 22:40 Interpretation: Abnormal: NT PRO-BNP 419. 10/31 17:02 Order name: PT-INR; Complete Time: 22:24 10/31 22:24 Interpretation: Reviewed. 10/31 17:02 Order name: Troponin HS; Complete Time: 22:39 cp 10/31 17:02 Order name: XRAY Chest (1 view); Complete Time: 18:33 cp 10/31 17:02 Order name: Ptt, Activated; Complete Time: 22:24 cp 10/31 17:02 Order name: US Extremity Venous W Compression Tanvir; Complete Time: 18:33 cp 10/31 17:02 Order name: COVID-19/FLU A+B (Document "Date of Onset" if Symptomatic); Complete Time: cp 19:20 10/31 17:20 Order name: Urine Dipstick-Ancillary; Complete Time: 18:00 EDMS 10/31 18:00 Interpretation: Normal except: UKET Trace; UBLD 2+. cp 10/31 19:20 Order name: CBC Smear Scan; Complete Time: 19:20 EDMS 10/31 20:04 Order name: CT Abd/Pelvis - Without Contrast la1 10/31 17:02 Order name: EKG; Complete Time: 17:03 cp 10/31 17:02 Order name: Cardiac monitoring; Complete Time: 17:09 cp 10/31 17:02 Order name: EKG - Nurse/Tech; Complete Time: 17:22 cp 10/31 17:02 Order name: IV Saline Lock; Complete Time: 17:09 cp 10/31 17:02 Order name: Labs collected and sent; Complete Time: 17:09 cp 10/31 17:02 Order name: O2 Per Protocol; Complete Time: 17: cp 10/31 17:02 Order name: O2 Sat Monitoring; Complete Time: 17: cp 10/31 17:28 Order name: Labs - recollect needed: recollect green and blue top; Complete Time: 20:30 bd 10/31 20:48 Order name: CT; Complete Time: 21:11 EDMS EC:17 Rate is 87 beats/min. Rhythm is regular. KS interval is normal. QRS interval is normal. cp QT interval is normal. Interpreted by me. Reviewed by me. Administered Medications: 22:57 Drug: Tessalon Perle (benzonatate) 100 mg Route: PO; al4 23:30 Follow up: Response: No adverse reaction al4 22:57 Drug: midodrine 5 mg Route: PO; al4 23:30 Follow up: Response: No adverse reaction al4 22:57 Drug: Magnesium Sulfate 2 grams Route: IVPB; Infused Over: 2 hrs; Site: left upper arm; al4 11/01 00:55 Follow up: Response: No adverse reaction; IV Status: Completed infusion; IV Intake: [id number] Disposition Summary: 11/01/21:27 Discharge Ordered Location: Home(11/01/21:27) cp Problem: new(11/01/21:) cp Symptoms: have improved(11/01/21:27) cp Condition: Stable(11/01/21:) cp Diagnosis - Hypomagnesemia cp - Ventral hernia without obstruction or gangrene cp - Unspecified cirrhosis of liver cp Followup: cp - With: Matthew Ba MD - When: 1 - 2 days - Reason: Recheck today's complaints Discharge Instructions: - Discharge Summary Sheet cp - Cirrhosis cp - Hernia, Adult cp - Hypomagnesemia cp Forms: - Medication Reconciliation Form cp - Thank You Letter cp - Antibiotic Education cp - Prescription Opioid Use cp Addendum: 11/04/2021 21:29 Co-signature as Attending Physician, Michael Webb MD. r n Signatures: Dispatcher [employer] EDMS Marissa Coe Martha, RN RN Charlee Ferguson RN RN Michael Jarvis MD MD rn Cy Mina, CARDIAC/VASCULAR SONOGRAPHER-C CARDIAC/VASCULAR SONOGRAPHER-Cla1 Pa Sen PA PA cp Glen Garcia Jennifer RN RN jg9 Corrections: (The following items were deleted from the chart) 10/31 17:28 17:19 Allergies: Unable to obtain [Inactive]; jg9 jg9 19:35 19:33 Cy Mina cp cp 19:48 19:33 Telemetry/MedSurg (observation) cp dw 19:48 19:33 cp dw 19:48 19:35 Chay Kwon cp la1 20:14 19:48 [facility] ER HOLD dw mw 20:14 19:48 ERHOLD- dw mw 22:42 20:14 Telemetry/MedSurg (observation) mw mw 22:42 20:14 411 mw mw 11/01 01:25 10/31 19:33 Observation cp cp 11/01 00:10/31 19:33 Fair cp cp 11/01 01:25 10/31 19:33 an ongoing problem cp cp 11/01 01:25 10/31 19:33 are unchanged cp cp 11/01 01:25 10/31 19:33 Standard cp cp 11/01 01:25 10/31 19:33 Liver disease, unspecified cp cp 11/01 01:25 10/31 19:33 Ascitis cp cp 11/01 01:10/31 19:48 Jamarcus Webb la1 cp 11/01 01:25 10/31 22:42 Telemetry/MedSurg (observation) mw cp 11/01 00:10/31 22:42 mw cp
--- NOTE | 2021-10-31 20:10 | P.HP ---
Certification for Inpatient Patient admitted to: Observation With expected LOS: <2 Midnights Patient will require the following post-hospital care: None Practitioner: I am a practitioner with admitting privileges, knowledge of patient current condition, hospital course, and medical plan of care. Services: Services provided to patient in accordance with Admission requirements found in Title 42 Section 412.3 of the Code of Federal Regulations Patient History Date of Service: 10/31/21 Reason for admission: Dyspnea, ascites History of Present Illness: 66-year-old female with history of cirrhosis of liver secondary to hepatitis C, chronic hypotension, large ventral hernias presented to the emergency department for abdominal distention, pain and dyspnea. Patient was recently treated here for hepatic encephalopathy [facility] Patient reports over the last few days she has had more difficulty with her breathing, significant abdominal distention and pain. Patient reports that she typically has abdominal paracentesis every 3 months or so her last one was in August. Patient was seen in the ER, ED provider wishes to admit under observation for abdominal paracentesis. Allergies Unable to Assess Allergy (Verified 10/20/21 11:54) Home Medications: Furosemide [Lasix] 20 mg PO DAILY 10/19/21 L.acidoph,Paracasei, B.lactis [Probiotic] 1 each PO DAILY 10/19/21 Spironolactone 50 mg PO BID 10/19/21 Ensure Enlive 237 ml PO BID can 10/26/21 Lactulose [Cephulac*] 33 ml PO DAILY ucup 10/26/21 Midodrine HCl [Proamatine*] 5 mg PO TID #0 tab 10/26/21 Cholecalciferol (Vitamin D3) [Vitamin D 5,000 IU Cap*] 5,000 unit PO DAILY cap 10/27/21 - Past Medical/Surgical History -: Cirrhosis secondary to hepatitis C -: Chronic hypotension -: Large ventral hernias Past Surgical History: Unable to obtain Psychosocial/ Personal History: Patient currently is resident at a [facility] facility - Family History Family History: Reviewed- Non-Contributory - Social History Smoking Status: Former smoker Alcohol use: No CD- Drugs: Yes Caffeine use: Yes Place of Residence: [facility] Review of Systems 10-point ROS is otherwise unremarkable Respiratory: Shortness of Breath Gastrointestinal: Nausea, Abdominal Pain, Diarrhea, Distention, As per HPI Physical Examination - Physical Exam General: Alert, In no apparent distress, Oriented x3, Obese HEENT: Atraumatic, PERRLA, Mucous membr. moist/pink, EOMI, Sclerae nonicteric Neck: Supple, 2+ carotid pulse no bruit, No LAD, Without JVD or thyroid abnormality Respiratory: Normal air movement, Diminished Cardiovascular: Regular rate/rhythm, Normal S1 S2 Gastrointestinal: Normal bowel sounds, Distended, Ascites, Masses Musculoskeletal: No tenderness Integumentary: No rashes Neurological: Normal speech, Normal strength at 5/5 x4 extr, Normal tone, Normal affect - Studies Laboratory Data (last 24 hrs) 10/31/21 17:05: WBC 9.8 D, Hgb 11.9 L, Hct 34.6 L D, Plt Count 172 Assessment and Plan - Plan Assessment: Dyspnea, abdominal pain secondary to ascites cirrhosis of liver secondary to hepatitis C Chronic hypotension Ventral hernias Plan: Dyspnea, abdominal pain secondary to ascites: Continue patient's home Lasix, spironolactone, lactulose with hold parameters for blood pressure as patient does have chronic hypotension. Abdominal paracentesis ordered, CT pending to further evaluate quantity of ascites, rule out other etiologies of abdominal pain especially considering patient's large ventral hernias. cirrhosis of liver secondary to hepatitis C: Continue as above Chronic hypotension: Continue midodrine 5 mg p.o. 3 times daily. Ventral hernias: Appears stable from previous, CT to evaluate further given worsening distention, abdominal pain although this is likely related to ascites. DVT PPX: SCD Code status: Full Discharge Plan: Home Plan to discharge in: 24 Hours - Advance Directives Does patient have a Living Will: No Does patient have a Durable POA for Healthcare: No - Code Status/Comfort Care Code Status Assessed: Yes (Full code) Critical Care: No Time Spent Managing Pts Care (In Minutes): 55
--- NOTE | 2021-10-31 20:46 | RAD REPORT ---
EXAM DESCRIPTION: CT - Abdomen Pelvis Wo Contrast - 10/31/2021 8:38 pm CLINICAL HISTORY: Abdominal pain. ABDOMINAL DISTENTION COMPARISON: Abdomen Pelvis W Contrast dated 03/23/2021 TECHNIQUE: CT imaging of the abdomen and pelvis was performed without contrast. Solid organ, bowel a nd vascular assessment is limited due to lack of IV and oral contrast. All CT scans are performed using dose optimization technique as appropriate and may include automated exposure control or mA/KV adjustment according to patient size. FINDINGS: Small bilateral pleural effusions. The liver has a nodular contour compatible mild cirrhosis. The spleen, pancreas, adrenal glands and k idneys are within normal limits for a limited non-contrast examination. Mild ascites is noted. IVC filter is in place. Large ventral hernia containing fat is seen. This appe ars to extend into a large right lower quadrant ventral hernia which contains a portion of the colon as well. Significant edema of the abdominal wall seen. No bowel obstruction or free air seen. The osseous structures are within normal limits. IMPRESSION: Mild ascites is present with large multicomponent ventral hernia noted. Mild liver cirrhosis. Small bilateral pleural effusions. A limited non-contrast examination was performed as detailed.
[2021-10-31 22:22] LABS: Protime INR 1.83
[2021-10-31 22:34] LABS: Albumin 1.6 g/dL (3.4-5.0); Bilirubin Total 3.9 mg/dL (0.2-1.0); Potassium 3.9 mmol/L (3.5-5.1); Protein, Total 5.4 g/dL (6.4-8.2); Troponin High Sensitivity 6.3 pg/mL (<58.9)
[2021-10-31 22:37] LABS: Magnesium 1.2 mg/dL (1.8-2.4)
[2021-10-31] MEDS ORDERED: MIDODRINE HCL 5 MG TABLET ONE (22:45)
[2021-10-31] MEDS ORDERED: Magnesium Sulfate 2gm IVPB 2 G/50 ML BAG IV ONE (22:54)
[2021-10-31] MEDS ORDERED: BENZONATATE 100 MG CAP PO ONE (22:54)
[2021-11-01 11:02] VITALS: BP 105/65; O2SAT 90
--- NOTE | 2021-11-02 11:04 | EKG ---
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
== END 2021-11-01 02:20 | disposition home health service (06) ==
LOC: ER 16:47 → ERHOLD 20:35
PROVIDERS: ADMIT Hospitalist; ATTEND Hospitalist
DX: E83.42 Hypomagnesemia (principal); K74.60 Unspecified cirrhosis of liver; K43.9 Ventral hernia without obstruction or gangrene; W19.XXXA Unspecified fall, initial encounter; Y92.129 Unspecified place in nursing home as the place of occurrence of the external cause; R18.8 Other ascites; J96.10 Chronic respiratory failure, unspecified whether with hypoxia or hypercapnia; K72.10 Chronic hepatic failure without coma; E55.9 Vitamin D deficiency, unspecified; Z87.891 Personal history of nicotine dependence; Z28.310 Unvaccinated for COVID-19; Z20.822 Contact with and (suspected) exposure to COVID-19; Z79.899 Other long term (current) drug therapy; Z85.9 Personal history of malignant neoplasm, unspecified
CPT/HCPCS: 96365; 93005; 85025; 80048; 36415; 83735; 85610; 80076; 85730; 81003; 84484; 83880; 0240U; 74176; 71045; 93970; 99285; 96366; J3475; G0378 ×3